=== PATIENT | male | born 1955 | race Caucasian/White ===

== ENCOUNTER → 2018-01-04 | Outpatient (CLI) | payer MEDICARE, OTHER ==
--- NOTE | 2018-01-04 17:31 | XR ---
EXAMINATION TYPE: XR chest 2V DATE OF EXAM: 01/04/2018 COMPARISON: Prior chest x-ray 02/06/2016 and a 01/06/2017 HISTORY: COPD exacerbation TECHNIQUE: Frontal and lateral views of the chest are obtained. FINDINGS: There is no focal air space opacity, pleural effusion, or pneumothorax seen. Increased de nsity seen on previous exams at the right costophrenic angle has resolved. The cardiac silhouette siz e is within normal limits. The osseous structures are intact. IMPRESSION: No acute cardiopulmonary process.
== END | disposition home or self-care (01) ==
LOC: RADXRMAIN 15:03
PROVIDERS: ATTEND Internal Medicine
DX: J44.1 Chronic obstructive pulmonary disease with (acute) exacerbation (principal)
CPT/HCPCS: 71046

== ENCOUNTER → 2018-07-02 | Outpatient (CLI) | payer MEDICARE, OTHER ==
[2018-07-02 09:28] LABS: Blood Urea Nitrogen 13 mg/dL (9-20)
--- NOTE | 2018-07-02 11:10 | CT ---
EXAMINATION TYPE: CT chest w con DATE OF EXAM: 07/02/2018 COMPARISON: None HISTORY: Coughing up blood CT DLP: 292.5 mGycm, Automated exposure control for dose reduction was used. CONTRAST: Performed injected with 100 mL of Isovue 300. TECHNIQUE: Axial images were obtained at 5 mm thick sections. Reconstructed images are reviewed on [employer] computer in the coronal plane. FINDINGS: Portion of the thyroid visualized is normal. No suspicious lung nodules or focal infiltrates are present. Tracheobronchial tree is visualized appe ars normal. Small pneumatoceles in the hands ago esophageal recess. No enlarged mediastinal or hilar adenopathy is evident. The ascending aorta diameter at the level o f the main pulmonary artery is 3.7 cm. The main pulmonary artery diameter at the bifurcation is 2.[address] sections are obtained through the upper abdomen. Abdomen is essentially unremarkable. IMPRESSIONS: 1. No acute CT abnormality
== END | disposition home or self-care (01) ==
LOC: RADCTMAIN 08:32
PROVIDERS: ATTEND Nurse Practitioner Adult Health
DX: R04.2 Hemoptysis (principal)
CPT/HCPCS: 82565; 84520; 71260; 36415; Q9967

== ENCOUNTER → 2022-08-28 | Outpatient (CLI) | payer MEDICARE, OTHER ==
--- NOTE | 2022-08-28 10:23 | CT ---
EXAMINATION TYPE: CT shoulder LT wo con DATE OF EXAM: 08/28/2022 COMPARISON: None HISTORY: Neck trauma, slip and fall CT DLP: 447.[address] of the left shoulder with reconstruction imaging. TECHNIQUE: Unenhanced CT of the left shoulder was performed with bone and soft tissue window settings submitted in the axial coronal and sagittal planes. At a separate workstation 3-[id number] TR imaging was ob tained. FINDINGS: I do not see evidence for fracture or dislocation. No evidence for subacromial impingement as there is a flat acromium. AC joint arthropathy with moderate spurring and a vacuum changes seen. Mild spur formation involving the greater humeral tuberosity. Mild degenerative narrowing glenohume ral joint space. No obvious rotator cuff abnormality seen on CT. MRI is much more sensitive and spec ific to rotator cuff pathology. No soft tissue masses appreciated. Visualized portions of the right lung demonstrate right apical scarring. IMPRESSION: 1. No evidence for acute fracture dislocation of the left shoulder. Degenerative changes as outlined above.
--- NOTE | 2022-08-28 10:31 | CT ---
EXAMINATION TYPE: CT cervical spine wo con DATE OF EXAM: 08/28/2022 COMPARISON: None HISTORY: Slip and fall, neck trauma CT DLP: 584.[address] of the cervical spine was performed with bone and soft tissue window settings submitted . Coronal and sagittal reconstruction is obtained. There is normal alignment and prevertebral soft tissues. I do not see evidence for fracture or subluxation. C2-3: Within normal limits C3-4: Mild degenerative disc space narrowing. Mild posterior disc bulge. Severe degenerative change o f the left-sided cervical apophyseal joints. Left greater than right neural foraminal encroachment. C4-5: Moderate to severe degenerative disc space narrowing with a mild posterior disc bulge. No evide nce of herniation or protrusion. No central stenosis. Mild right greater than left neural foraminal e ncroachment. C5-6: Severe degenerative disc space narrowing of the mild vacuum disc noted. Posterior disc bulge wi th mild spondylosis. No evidence for central stenosis. Moderate bilateral neural foraminal encroachme nt. C6-7:Severe degenerative disc space narrowing of the mild vacuum disc noted. Posterior disc bulge wit h mild spondylosis. No evidence for central stenosis. Moderate bilateral neural foraminal encroachmen t. C7-T1: Within normal limits IMPRESSION: 1. No evidence for fracture or subluxation of the cervical spine. 2. Multilevel degenerative disc disease as outlined above.
== END | disposition home or self-care (01) ==
LOC: RADCTMAIN 08:20
PROVIDERS: ATTEND Family Medicine
DX: S19.9XXA Unspecified injury of neck, initial encounter (principal); S40.912A Unspecified superficial injury of left shoulder, initial encounter; M19.012 Primary osteoarthritis, left shoulder; M50.31 Other cervical disc degeneration, high cervical region
CPT/HCPCS: 72125

== ENCOUNTER 2022-12-28 19:29 | Inpatient (IN) | payer MEDICARE, OTHER ==
--- NOTE | 2022-12-28 20:08 | ED ---
General Adult HPI - General Chief complaint: Shortness of Breath Stated complaint: Low 02 Time Seen by Provider: 12/28/22 19:58 Source: patient, family Mode of arrival: wheelchair Limitations: no limitations - History of Present Illness Initial comments: Patient presents to the ED with his nephew for evaluation. Patient states that he has had a fever, productive cough (productive of white sputum), nasal congestion and myalgias since this morning. Patient denies known sick contact. Patient denies taking any antipyretic medication today. Patient states that he is a smoker. Patient denies trauma or injury, neck pain or stiffness, sore throat, chest pain, hemoptysis, palpitations, dizziness, abdominal pain, nausea/vomiting/diarrhea, dysuria or urinary symptoms, decreased urine output, leg or calf swelling or pain, or any other symptoms or complaints. Patient states that he has received his Covid and influenza immunizations. - Related Data Home Medications Medication Instructions Recorded Confirmed Fluticasone Propion/Salmeterol 1 puff INHALATION RT-BID 10/07/14 12/28/22 [Advair 250-50 Diskus] Atorvastatin [Lipitor] 40 mg PO HS 01/16/22 12/28/22 Ibuprofen [Motrin] 800 mg PO BID PRN 01/16/22 12/28/22 Albuterol Nebulized [Ventolin 2.5 mg INHALATION RT-QID PRN 12/28/22 12/28/22 Nebulized] Albuterol Sulfate [Albuterol 2 puff PO RT-QID PRN 12/28/22 12/28/22 Sulfate Hfa] Cholecalciferol [Vitamin D3 (25 50 mcg PO DAILY 12/28/22 12/28/22 Mcg = 1000 Iu)] Fluticasone Nasal [place] [Flonase 1 spray EA NOSTRIL DAILY 12/28/22 12/28/22 Nasal Gaines] Fluticasone/Umeclidin/Vilanter 1 puff INHALATION RT-DAILY 12/28/22 12/28/22 [Trelegy Ellipta 100-62.5-25] Allergies Allergy/AdvReac Type Severity Reaction Status Date / Time morphine AdvReac Unknown Verified 12/28/22 21:39 Review of Systems ROS Statement: Those systems with pertinent positive or pertinent negative responses have been documented in the HPI. ROS Other: All systems not noted in ROS Statement are negative. Past Medical History Past Medical History: Asthma, Cancer, COPD, Rheumatoid Arthritis (RA) Additional Past Medical History / Comment(s): Leukemia, SPLEENOMEGLY now normal History of Any Multi-Drug Resistant Organisms: C-DIFF Date of last positivie culture/infection: 2013 MDRO Source:: stool Past Surgical History: Orthopedic Surgery Additional Past Surgical History / Comment(s): TESTICULAR SURGERY, LT KNEE TORN LIGAMENT REPAIR, LT CHEEK BONE FX-SX REPAIRED Past Anesthesia/Blood Transfusion Reactions: No Reported Reaction Past Psychological History: No Psychological Hx Reported Smoking Status: Current every day smoker Past Alcohol Use History: Occasional Past Drug Use History: None Reported - Past Family History Father Additional Family Medical History / Comment(s): AT AGE 51- SUICIDE Mother Additional Family Medical History / Comment(s): MOM AGE 67- BRAIN HEMORRAGE. Mother history of Crohn's disease General Exam Limitations: no limitations General appearance: alert Head exam: Present: normocephalic Eye exam: Present: normal appearance ENT exam: Present: normal oropharynx, mucous membranes moist Neck exam: Present: other (Trachea is in midline). Absent: tenderness, meningismus Respiratory exam: Present: other (Scattered end-expiratory wheezes bilaterally). Absent: rales, rhonchi, stridor Cardiovascular Exam: Present: normal rhythm, tachycardia, normal heart sounds, other (Normal radial pulses bilaterally) GI/Abdominal exam: Present: soft. Absent: distended, tenderness, guarding Extremities exam: Present: other (Negative Homans sign bilaterally). Absent: tenderness, pedal edema, calf tenderness Neurological exam: Present: alert, oriented X3 Skin exam: Present: warm, dry, intact, normal color Course Vital Signs 12/28/22 12/28/22 12/28/22 19:47 20:00 21:00 Temperature 100.4 F H Pulse Rate 113 H 108 H 101 H Respiratory 20 24 24 Rate Blood Pressure 107/69 121/85 112/91 O2 Sat by Pulse 87 L 96 96 Oximetry 12/28/22 12/28/22 12/28/22 21:55 22:03 22:11 Temperature 98.9 F Pulse Rate 88 93 Respiratory Rate Blood Pressure O2 Sat by Pulse Oximetry - Reevaluation(s) Reevaluation #1: 12/28/22 22:41 Patient states that his dyspnea has improved with the DuoNeb treatment that he was given in the ED. Patient's oxygen saturation has improved with supplemental oxygen in the ED. Patient denies development of any new symptoms while in the ED. Patient remains alert. Patient and daughter are aware of the patient's test results, and they both agree with hospital admission at this time. 12/28/22 22:51 Case, H&P, test results and ED management thus far were discussed with Dr. Prashant Arriaza. He accepts hospital admission. He has no further recommendations at this time. EKG Findings - EKG Comments: EKG Findings:: ED physician interpretation (interpreted by me): Normal sinus rhythm, ventricular rate of 97 bpm, no ectopy, normal LA and QRS intervals, normal QT interval, normal axis, no ST or T-wave abnormality Medical Decision Making - Medical Decision Making Was pt. sent in by a medical professional or institution (, PA, PSYCHOLOGICAL ASSISTANT, urgent care, hospital, or care home...) When possible be specific @ -[No] Did you speak to anyone other than the patient for history (EMS, parent, family, police, friend...)? What history was obtained from this source @ -[No] Did you review nursing and triage notes (agree or disagree)? Why? @ -[I reviewed and agree with nursing and triage notes] Were old charts reviewed (outside hosp., previous admission, EMS record, old EKG, old radiological studies, urgent care reports/EKG's, care home records)? Report findings @ -[No old charts were reviewed] Differential Diagnosis (chest pain, altered mental status, abdominal pain women, abdominal pain men, vaginal bleeding, weakness, fever, dyspnea, syncope, headache, dizziness, GI bleed, back pain, seizure, CVA, palpatations, mental health, musculoskeletal)? @ -[Differential Dyspnea: Coronary syndrome, arrhythmia, tamponade, asthma, COPD, bronchitis, Covid, influenza, viral illness, URI, pneumonia, pneumothorax, pulmonary effusion, UTI, anemia, neuromuscular, this is not meant to be an all-inclusive list. ] EKG interpreted by me (3pts min.). @ -[As above] X-rays interpreted by me (1pt min.). @ -[Chest x-ray was reviewed myself and demonstrates bilateral infiltrates. I agree with the radiologist's interpretation as above.] CT interpreted by me (1pt min.). @ -[None done] U/S interpreted by me (1pt. min.). @ -[None done] What testing was considered but not performed or refused? (CT, X-rays, U/S, lab s)? Why? @ -[None] What meds were considered but not given or refused? Why? @ -[None] Did you discuss the management of the patient with other professionals (professionals i.e. , PA, PSYCHOLOGICAL ASSISTANT, lab, RT, psych nurse, social services technician, finisher card tender, teacher, targeting acquisition officer, complex case manager)? Give summary @ -[No] Was smoking cessation discussed for >3mins.? @ -[No] Was critical care preformed (if so, how long)? @ -[No] Were there social determinants of health that impacted care today? How? (Homelessness, low income, unemployed, alcoholism, drug addiction, transportation, low edu. Level, literacy, decrease access to med. care, long-term, rehab)? @ -[No] Was there de-escalation of care discussed even if they declined (Discuss DNR or withdrawal of care, Hospice)? DNR status @ -[No] What co-morbidities impacted this encounter? (DM, HTN, Smoking, COPD, CAD, Cancer, CVA, ARF, Chemo, Hep., AIDS, mental health diagnosis, sleep apnea, morbid obesity)? @ -[None] Was patient admitted / discharged? Hospital course, mention meds given and route, prescriptions, significant lab abnormalities, going to OR and other per tinent info. @ -[Patient's viral studies are negative. Patient's troponin is within normal limits. Patient has a low-grade fever and leukocytosis. The rest of the patient's labs are fairly unremarkable. Patient's chest x-ray shows bilateral infiltrates. I suspect that the patient's findings are due to community acquired pneumonia. Patient also has wheezing/bronchospasm on exam. Patient has been treated in the ED with DuoNeb treatment, IV steroids and IV antibiotics. Will admit the patient to the hospital for continued supplemental oxygen therapy given his hypoxia, as well as continued IV antibiotic therapy. Dr. Prashant Arriaza has accepted hospital admission. Undiagnosed new problem with uncertain prognosis? @ -[No] Drug Therapy requiring intensive monitoring for toxicity (Heparin, Nitro, Insulin, Cardizem)? @ -[No] Were any procedures done? @ -[No] Diagnosis/symptom? @ -[Community-acquired pneumonia with wheezing and hypoxia] Acute, or Chronic, or Acute on Chronic? @ -[Acute] Uncomplicated (without systemic symptoms) or Complicated (systemic symptoms)? @ -[default] Side effects of treatment? @ -[No] Exacerbation, Progression, or Severe Exacerbation? @ -[No] Poses a threat to life or bodily function? How? (Chest pain, USA, MS, pneumonia, PE, COPD, DKA, ARF, appy, cholecystitis, CVA, Diverticulitis, Homicidal, Suicidal, threat to staff... and all critical care pts) @ -[Possible] - Lab Data Result diagrams: 12/28/22 20:35 12/28/22 20:35 Lab Results 12/28/22 12/28/22 12/28/22 Range/Units 20:35 20:35 20:35 WBC 20.8 H (3.8-10.6) k/uL RBC 4.22 L (4.30-5.90) m/uL Hgb 12.3 L (13.0-17.5) gm/dL Hct 37.1 L (39.0-53.0) % MCV 88.1 (80.0-100.0) fL MCH 29.1 (25.0-35.0) pg MCHC 33.1 (31.0-37.0) g/dL RDW 14.7 (11.5-15.5) % Plt Count 156 (150-450) k/uL MPV 7.9 Neutrophils % 89 % Lymphocytes % 7 % Monocytes % 3 % Eosinophils % 1 % Basophils % 0 % Neutrophils # 18.5 H (1.3-7.7) k/uL Lymphocytes # 1.4 (1.0-4.8) k/uL Monocytes # 0.7 (0-1.0) k/uL Eosinophils # 0.2 (0-0.7) k/uL Basophils # 0.0 (0-0.2) k/uL PT 10.1 (9.0-12.0) sec INR 1.0 (<1.2) APTT 26.3 (22.0-30.0) sec Sodium 131 L (137-145) mmol/L Potassium 3.9 (3.5-5.1) mmol/L Chloride 98 (98-107) mmol/L Carbon Dioxide 26 (22-30) mmol/L Anion Gap 7 mmol/L BUN 11 (9-20) mg/dL Creatinine 0.66 (0.66-1.25) mg/dL Est GFR (CKD-EPI)AfAm >90 (>60 ml/min/1.73 sqM) Est GFR (CKD-EPI)NonAf >90 (>60 ml/min/1.73 sqM) Glucose 90 (74-99) mg/dL Plasma Lactic Acid Lucas (0.7-2.0) mmol/L Calcium 8.7 (8.4-10.2) mg/dL Total Bilirubin 1.0 (0.2-1.3) mg/dL AST 16 L (17-59) U/L ALT 13 (4-49) U/L Alkaline Phosphatase 109 (38-126) U/L Troponin I (0.000-0.034) ng/mL NT-Pro-B Natriuret Pep 506 pg/mL Total Protein 5.7 L (6.3-8.2) g/dL Albumin 3.4 L (3.5-5.0) g/dL Urine Color Urine Appearance (Clear) Urine pH (5.0-8.0) Ur Specific [place] (1.001-1.035) Urine Protein (Negative) Urine Glucose (UA) (Negative) Urine Ketones (Negative) Urine Blood (Negative) Urine Nitrite (Negative) Urine Bilirubin (Negative) Urine Urobilinogen (<2.0) mg/dL Ur Leukocyte Esterase (Negative) Influenza Type A (PCR) (Not Detectd) Influenza Type B (PCR) (Not Detectd) RSV (PCR) (Not Detectd) SARS-CoV-2 (PCR) (Not Detectd) 12/28/22 12/28/22 12/28/22 Range/Units 20:35 20:35 20:35 WBC (3.8-10.6) k/uL RBC (4.30-5.90) m/uL Hgb (13.0-17.5) gm/dL Hct (39.0-53.0) % MCV (80.0-100.0) fL MCH (25.0-35.0) pg MCHC (31.0-37.0) g/dL RDW (11.5-15.5) % Plt Count (150-450) k/uL MPV Neutrophils % % Lymphocytes % % Monocytes % % Eosinophils % % Basophils % % Neutrophils # (1.3-7.7) k/uL Lymphocytes # (1.0-4.8) k/uL Monocytes # (0-1.0) k/uL Eosinophils # (0-0.7) k/uL Basophils # (0-0.2) k/uL PT (9.0-12.0) sec INR (<1.2) APTT (22.0-30.0) sec Sodium (137-145) mmol/L Potassium (3.5-5.1) mmol/L Chloride (98-107) mmol/L Carbon Dioxide (22-30) mmol/L Anion Gap mmol/L BUN (9-20) mg/dL Creatinine (0.66-1.25) mg/dL Est GFR (CKD-EPI)AfAm (>60 ml/min/1.73 sqM) Est GFR (CKD-EPI)NonAf (>60 ml/min/1.73 sqM) Glucose (74-99) mg/dL Plasma Lactic Acid Lucas 1.3 (0.7-2.0) mmol/L Calcium (8.4-10.2) mg/dL Total Bilirubin (0.2-1.3) mg/dL AST (17-59) U/L ALT (4-49) U/L Alkaline Phosphatase (38-126) U/L Troponin I <0.012 (0.000-0.034) ng/mL NT-Pro-B Natriuret Pep pg/mL Total Protein (6.3-8.2) g/dL Albumin (3.5-5.0) g/dL Urine Color Urine Appearance (Clear) Urine pH (5.0-8.0) Ur Specific [place] (1.001-1.035) Urine Protein (Negative) Urine Glucose (UA) (Negative) Urine Ketones (Negative) Urine Blood (Negative) Urine Nitrite (Negative) Urine Bilirubin (Negative) Urine Urobilinogen (<2.0) mg/dL Ur Leukocyte Esterase (Negative) Influenza Type A (PCR) Not Detected (Not Detectd) Influenza Type B (PCR) Not Detected (Not Detectd) RSV (PCR) Not Detected (Not Detectd) SARS-CoV-2 (PCR) Not Detected (Not Detectd) 12/28/22 Range/Units 21:59 WBC (3.8-10.6) k/uL RBC (4.30-5.90) m/uL Hgb (13.0-17.5) gm/dL Hct (39.0-53.0) % MCV (80.0-100.0) fL MCH (25.0-35.0) pg MCHC (31.0-37.0) g/dL RDW (11.5-15.5) % Plt Count (150-450) k/uL MPV Neutrophils % % Lymphocytes % % Monocytes % % Eosinophils % % Basophils % % Neutrophils # (1.3-7.7) k/uL Lymphocytes # (1.0-4.8) k/uL Monocytes # (0-1.0) k/uL Eosinophils # (0-0.7) k/uL Basophils # (0-0.2) k/uL PT (9.0-12.0) sec INR (<1.2) APTT (22.0-30.0) sec Sodium (137-145) mmol/L Potassium (3.5-5.1) mmol/L Chloride (98-107) mmol/L Carbon Dioxide (22-30) mmol/L Anion Gap mmol/L BUN (9-20) mg/dL Creatinine (0.66-1.25) mg/dL Est GFR (CKD-EPI)AfAm (>60 ml/min/1.73 sqM) Est GFR (CKD-EPI)NonAf (>60 ml/min/1.73 sqM) Glucose (74-99) mg/dL Plasma Lactic Acid Lucas (0.7-2.0) mmol/L Calcium (8.4-10.2) mg/dL Total Bilirubin (0.2-1.3) mg/dL AST (17-59) U/L ALT (4-49) U/L Alkaline Phosphatase (38-126) U/L Troponin I (0.000-0.034) ng/mL NT-Pro-B Natriuret Pep pg/mL Total Protein (6.3-8.2) g/dL Albumin (3.5-5.0) g/dL Urine Color Yellow Urine Appearance Clear (Clear) Urine pH 6.5 (5.0-8.0) Ur Specific [place] 1.017 (1.001-1.035) Urine Protein Trace H (Negative) Urine Glucose (UA) Negative (Negative) Urine Ketones Negative (Negative) Urine Blood Negative (Negative) Urine Nitrite Negative (Negative) Urine Bilirubin Negative (Negative) Urine Urobilinogen 3.0 (<2.0) mg/dL Ur Leukocyte Esterase Negative (Negative) Influenza Type A (PCR) (Not Detectd) Influenza Type B (PCR) (Not Detectd) RSV (PCR) (Not Detectd) SARS-CoV-2 (PCR) (Not Detectd) - Radiology Data Chest x-ray: Low lung volumes with a generalized hazy appearance which could represent atelectasis versus pulmonary edema correlate with serum BNP. Disposition Clinical Impression: Hypoxia, Dyspnea, Febrile illness, Wheezing, Pneumonia Disposition: ADMITTED IP TO THIS [facility] Condition: Stable Is patient prescribed a controlled substance at d/c from ED?: No Referrals: Prashant rAriaza MD [Primary Care Provider] - 1-2 days Time of Disposition: 22:51
[2022-12-28] MEDS ORDERED: methylPREDNISolone SOD SUCCI 125 MG/2 ML VIAL IV STA (20:13)
[2022-12-28] MEDS ORDERED: IPRATROPIUM-ALBUTEROL 3 ML NEB INHALATION STA (20:13)
[2022-12-28] MEDS ORDERED: ACETAMINOPHEN TAB 500 MG TAB PO STA (20:15)
--- NOTE | 2022-12-28 21:07 | XR ---
EXAMINATION TYPE: XR chest 2V DATE OF EXAM: 12/28/2022 8:51 PM COMPARISON: Chest radiographs from 01/04/2018. TECHNIQUE: XR chest 2V Frontal and lateral views of the chest. CLINICAL INDICATION:Male, 67 years old with history of difficulty breathing; FINDINGS: Lungs/Pleura: There is no evidence of pleural effusion, focal consolidation, or pneumothorax. Pulmonary vascularity: Pulmonary vascular congestion. Heart/mediastinum: Cardiomediastinal silhouette is unremarkable. Musculoskeletal: No acute osseous pathology. IMPRESSION: Low lung volumes with a generalized hazy appearance which could represent atelectasis versus pulmonar y edema correlate with serum BNP.
[2022-12-28 21:26] LABS: ALT 13 U/L (4-49); AST 16 U/L (17-59); African American GFR (CKD) >90 (>60 ml/min/1.73 sqM); Albumin 3.4 g/dL (3.5-5.0); Alkaline Phosphatase 109 U/L (38-126); Anion Gap 7 mmol/L; Blood Urea Nitrogen 11 mg/dL (9-20); Calcium 8.7 mg/dL (8.4-10.2); Carbon Dioxide 26 mmol/L (22-30); Chloride 98 mmol/L (98-107); Glucose 90 mg/dL (74-99); Non-African American GFR(CKD) >90 (>60 ml/min/1.73 sqM); Potassium 3.9 mmol/L (3.5-5.1); Sodium 131 mmol/L (137-145); Total Protein 5.7 g/dL (6.3-8.2)
[2022-12-28 21:33] LABS: Partial Thromboplastin Time 26.3 sec (22.0-30.0); Prothrombin Time 10.1 sec (9.0-12.0)
[2022-12-28 21:35] LABS: NT-Pro-B-Type Natriuretic Pept 506 pg/mL
[2022-12-28 21:38] LABS: Basophils % (A) 0 %; Eosinophils # (A) 0.2 k/uL (0-0.7); Eosinophils % (A) 1 %; HCT 37.1 % (39.0-53.0); HGB 12.3 gm/dL (13.0-17.5); Lymphocytes # (A) 1.4 k/uL (1.0-4.8); Lymphocytes % (A) 7 %; MCH 29.1 pg (25.0-35.0); MCHC 33.1 g/dL (31.0-37.0); MCV 88.1 fL (80.0-100.0); Mean Platelet Volume 7.9; Monocytes # (A) 0.7 k/uL (0-1.0); Monocytes % (A) 3 %; Neutrophils # (A) 18.5 k/uL (1.3-7.7); Neutrophils % (A) 89 %; Platelet Count 156 k/uL (150-450); RBC 4.22 m/uL (4.30-5.90); RDW 14.7 % (11.5-15.5); WBC 20.8 k/uL (3.8-10.6)
[2022-12-28] MEDS ORDERED: AZITHROMYCIN 500 MG in SODIUM CHLORIDE 0.9% 250 ML IVPB STA (22:05)
[2022-12-28 22:40] LABS: Appearance,Urine Clear (Clear); Bilirubin,Urine Negative (Negative); Blood,Urine Negative (Negative); Color,Urine Yellow; Glucose,Urine (UA) Negative (Negative); Ketones,Urine Negative (Negative); Leukocyte Esterase,Urine Negative (Negative); Nitrite,Urine Negative (Negative); PH, Urine 6.5 (5.0-8.0); Protein,Urine Trace (Negative); Specific Gravity,Urine 1.017 (1.001-1.035)
[2022-12-28] MEDS ORDERED: NALOXONE 0.4 MG/ML 1 ML VIAL IV PRN (22:55)
[2022-12-29 05:31] LABS: Basophils % (A) 0 %; Eosinophils % (A) 0 %; HGB 12.6 gm/dL (13.0-17.5); Lymphocytes # (A) 0.4 k/uL (1.0-4.8); Lymphocytes % (A) 3 %; MCH 29.6 pg (25.0-35.0); MCHC 33.1 g/dL (31.0-37.0); MCV 89.5 fL (80.0-100.0); Mean Platelet Volume 7.7; Monocytes # (A) 0.2 k/uL (0-1.0); Monocytes % (A) 1 %; Neutrophils # (A) 13.4 k/uL (1.3-7.7); Neutrophils % (A) 95 %; Platelet Count 115 k/uL (150-450); RBC 4.25 m/uL (4.30-5.90); RDW 14.7 % (11.5-15.5)
[2022-12-29 05:44] LABS: ALT 16 U/L (4-49); AST 25 U/L (17-59); African American GFR (CKD) >90 (>60 ml/min/1.73 sqM); Albumin 3.3 g/dL (3.5-5.0); Alkaline Phosphatase 110 U/L (38-126); Anion Gap 11 mmol/L; Blood Urea Nitrogen 13 mg/dL (9-20); Calcium 8.6 mg/dL (8.4-10.2); Carbon Dioxide 20 mmol/L (22-30); Chloride 105 mmol/L (98-107); Glucose 197 mg/dL (74-99); Non-African American GFR(CKD) >90 (>60 ml/min/1.73 sqM); Potassium 4.2 mmol/L (3.5-5.1); Sodium 136 mmol/L (137-145); Total Bilirubin 0.7 mg/dL (0.2-1.3); Total Protein 5.8 g/dL (6.3-8.2)
[2022-12-29] MEDS ORDERED: ALBUTEROL HFA INHALER INHALATION PRN (08:34)
[2022-12-29] MEDS ORDERED: ALBUTEROL NEBULIZED 2.5 MG/3 ML INHALATION PRN (08:34)
[2022-12-29] MEDS ORDERED: IBUPROFEN 800 MG TAB PO PRN (08:34)
[2022-12-29] MEDS: CHOLECALCIFEROL 25 MCG (1000 IU) TABLET PO SCH (08:57)
[2022-12-29] MEDS: FLUTICASONE 50MCG/SPRAY NASAL 16GM EA NOSTRIL SCH (09:24)
[2022-12-29] MEDS: IPRATROPIUM-ALBUTEROL 3 ML NEB INHALATION SCH ×3 (11:52→22:03)
[2022-12-29] MEDS ORDERED: RX INFO: IV CONTRAST WAS GIVEN 1 EACH MISC MISCELLANE PRN (19:00)
[2022-12-29] MEDS: methylPREDNISolone SOD SUCCI 40 MG/ML 1 ML VIAL IV SCH (21:29)
[2022-12-29] MEDS: ATORVASTATIN 40 MG TAB PO SCH (21:30)
[2022-12-29] MEDS: AZITHROMYCIN 500 MG in SODIUM CHLORIDE 0.9% 250 ML IVPB SCH (21:30)
--- NOTE | 2022-12-29 21:41 | CT ---
EXAMINATION TYPE: CT chest w con CT DLP: 316.3 mGycm, Automated exposure control for dose reduction was used. DATE OF EXAM: 12/29/2022 9:23 PM COMPARISON: 12/28/2022 CLINICAL INDICATION:Male, 67 years old with history of copd/cp; PHH, COPD/ chest pain TECHNIQUE: Multiple axial images were obtained through the chest. Sagittal and coronal reformats were created for review. Contrast used:100 mL of Isovue 300 with IV Contrast (None if empty) Oral contrast used: (None if empty) FINDINGS: LUNGS/ PLEURA: Bilateral airspace opacities most pronounced in the lower lungs, right greater than le ft. No evidence for pneumothorax or pleural effusion. AIRWAY: Few scattered large airways opacities most pronounced right lower lung. HEART: Size within normal limits. MEDIASTINUM: No gross evidence of adenopathy. VASCULATURE: Atherosclerotic calcifications are present throughout the aorta and its branches. MUSCULOSKELETAL: Mild disc degeneration changes are present throughout the thoracolumbar spine. SOFT TISSUES/LYMPH NODES: Unremarkable. LOWER NECK: No significant findings. UPPER ABDOMEN: No significant findings. IMPRESSION: Bilateral airspace opacities in lower lobes with some large airway opacification in the r ight lower lobe. Correlate for aspiration pneumonia..
[2022-12-29] MEDS: BUDESONIDE 0.5 MG/2 ML NEBU INHALATION SCH (22:03)
--- NOTE | 2022-12-30 00:26 | HP ---
HISTORY AND PHYSICAL HISTORY OF PRESENT ILLNESS: This is a 67-year-old white male. He wears oxygen at nighttime, severe COPD, comes in with cough and nasal congestion, myalgias, possibly had infection he got from a contaminated air conditioner. He denies any fever, or chills. He feels better than when he was admitted. He denies any hemoptysis, calf swelling, or pain. influenza shots. HOME MEDICINES: 1. Advair. 2. Motrin. 3. Ventolin. 4. DuoNeb updrafts. 5. Budesonide updrafts. ALLERGIES: Morphine. REVIEW OF SYSTEMS: A 14-point review of systems otherwise negative. PAST MEDICAL HISTORY: Asthma, cancer, COPD, rheumatoid arthritis, leukemia, splenomegaly, C diff, testicular surgeries, left knee torn ligament repair, left cheek and bone fractures. SOCIAL HISTORY: Current everyday smoker. FAMILY HISTORY: Father suicide. Mother, brain hemorrhage, colitis. PHYSICAL EXAMINATION: GENERAL: He is sitting comfortably in bed. VITAL SIGNS: T-max is 100.4, pulse 101 to 113, blood pressure 107 to 121 over 69 to 90, O2 of 87 on admission, up to 96. LUNGS: Scattered rhonchi and wheeze. CARDIOVASCULAR: S1, S2. GI: Soft. EXTREMITIES: No cyanosis, clubbing, or edema. SKIN: Warm, dry, and intact. ASSESSMENT: Pneumonia, COPD exacerbation, tracheobronchitis, acute hypoxemic respiratory failure with O2 saturation 94. EKG shows sinus rhythm. PLAN: IV steroids, IV antibiotics. Check CAT scan of the chest. Do pulmonary updrafts. Prognosis guarded. MMODL / IJN: [id number] /
[2022-12-30] MEDS: methylPREDNISolone SOD SUCCI 40 MG/ML 1 ML VIAL IV SCH ×3 (05:41→21:14)
[2022-12-30] MEDS: PANTOPRAZOLE 40 MG TABLET PO SCH ×2 (06:39→18:25)
[2022-12-30] MEDS: CHOLECALCIFEROL 25 MCG (1000 IU) TABLET PO SCH (09:00)
[2022-12-30] MEDS: FLUTICASONE 50MCG/SPRAY NASAL 16GM EA NOSTRIL SCH (09:00)
[2022-12-30] MEDS: IPRATROPIUM-ALBUTEROL 3 ML NEB INHALATION SCH ×4 (11:24→20:12)
[2022-12-30] MEDS: BUDESONIDE 0.5 MG/2 ML NEBU INHALATION SCH ×2 (11:24→20:12)
[2022-12-30] MEDS: AZITHROMYCIN 500 MG in SODIUM CHLORIDE 0.9% 250 ML IVPB SCH (21:14)
[2022-12-30] MEDS: ATORVASTATIN 40 MG TAB PO SCH (21:14)
[2022-12-31] MEDS ORDERED: ALBUTEROL NEBULIZED 2.5 MG/3 ML INHALATION PRN (00:42)
[2022-12-31] MEDS: methylPREDNISolone SOD SUCCI 125 MG/2 ML VIAL IV SCH ×5 (01:30→23:52)
--- NOTE | 2022-12-31 01:43 | PN ---
PROGRESS NOTE SUBJECTIVE: Acute hypoxemic respiratory distress, pneumonia bilaterally. OBJECTIVE: CARDIOVASCULAR: S1, S2. LUNGS: Scattered rhonchi and wheeze. GI: Soft. HEMATOLOGY: Negative for Homans. PSYCHIATRIC: Fair mood and affect. ASSESSMENT: Acute hypoxemic respiratory distress, bilateral pneumonia, COPD. Continue with breathing treatments. Home oxygen updrafts. CAT scan of his chest shows no lung cancer. Prognosis guarded. MMODL / IJN: [id number] /
--- NOTE | 2022-12-31 04:37 | P.CNPUL ---
History of Present Illness Consult date: 12/31/22 Requesting physician: Prsahant Arriaza Chief complaint: Shortness of breath, fevers, cough History of present illness: I am seeing this patient in new consultation today 12/31/2022 on the general medical floor for suspected community-acquired pneumonia. Patient is a 67-year-old white male with past medical history significant for COPD, non- Hodgkin's lymphoma, rheumatoid arthritis, and chronic nicotine dependence. Alaina ent's primary care provider is Dr. Prashant Arriaza. Patient has also seen Dr. Gonsales in the office in follow-up for a right lower lobe pneumonia and COPD. He utilizes combination of Advair and Ventolin HFA as needed. He is chronically steroid dependent on prednisone 10 mg daily. Patient presented to emergency room back on December, for symptoms of shortness of breath, fevers, myalgias, and a productive cough with white sputum that started approximately 2 days before arrival. Denies sick contacts or recent travel. Denies any chest pain, heart palpitations, lower extremity swelling, orthopnea. We were not consulted until yesterday evening. Patient is currently sitting up in bed, on room air, in no acute distress. Chest x-ray on arrival showed bilateral airspace opacities in the lower lobes. A follow-up chest CT with contrast showed bilateral airspace opacities in the lower lobes with some large airway opacification in the right lower lobe correlating for aspiration pneumonia. CBC on arrival showed significant leukocytosis with a WBC count of 20.8, hemoglobin 12.3, hematocrit 37.1, and platelets 156. Patient was started on a combination of azithromycin and Rocephin. Patient is currently afebrile and leukocytosis is trending down. BMP on arrival was unremarkable. No IV maintenance fluids infusing. Tolerating oral intake. Negative for influenza, RSV, COVID-19. He is quite bronchospastic. Wheezy and rhonchorous on auscultation. There is a persistent nonproductive cough. He is pursed lip breathing. He has been started on a combination of budesonide and formoterol inhalations, bronchodilators, and IV Solu-Medrol. Appears hemodynamically stable at this time. Review of Systems REVIEW OF SYSTEMS: CONSTITUTIONAL: Denies any recent significant weight loss or weight gain. EYES: Denies change in vision. EARS, NOSE, MOUTH, THROAT: Denies headaches, denies sore throat. CARDIOVASCULAR: Denies chest pain, palpitations or syncopal episodes. RESPIRATORY: See HPI GASTROINTESTINAL: Denies change in appetite, abdominal pain, nausea and vomiting, or diarrhea GENITOURINARY: Denies hematuria, denies infections. MUSKULOSKELETAL: Denies pain, denies swelling. INTEGUMENTARY: Denies rash, denies eczema. NEUROLOGICAL: Denies recent memory loss, no recent seizure activity. PSYCHIATRIC: Denies anxiety, denies depression. HEMATOLOGIC/LYMPHATIC: Denies anemia, denies enlarged lymph node Past Medical History Past Medical History: Asthma, Cancer, COPD, Rheumatoid Arthritis (RA) Additional Past Medical History / Comment(s): Leukemia, SPLEENOMEGLY now normal, heart cath with stent History of Any Multi-Drug Resistant Organisms: C-DIFF Date of last positivie culture/infection: 2013 MDRO Source:: stool Past Surgical History: Orthopedic Surgery Additional Past Surgical History / Comment(s): TESTICULAR SURGERY, LT KNEE TORN LIGAMENT REPAIR, LT CHEEK BONE FX-SX REPAIRED Past Anesthesia/Blood Transfusion Reactions: No Reported Reaction Past Psychological History: No Psychological Hx Reported Smoking Status: Current every day smoker Past Alcohol Use History: Occasional Additional Past Alcohol Use History / Comment(s): SMOKES 1/2 TO 1PPD SINCE AGE 181972 Past Drug Use History: None Reported - Past Family History Father Additional Family Medical History / Comment(s): AT AGE 51- SUICIDE Mother Additional Family Medical History / Comment(s): MOM AGE 67- BRAIN HEMORRAGE. Mother history of Crohn's disease Medications and Allergies Home Medications Medication Instructions Recorded Confirmed Type Fluticasone Propion/Salmeterol 1 puff INHALATION RT-BID 10/07/14 12/28/22 History [Advair 250-50 Diskus] Atorvastatin [Lipitor] 40 mg PO HS 01/16/22 12/28/22 History Ibuprofen [Motrin] 800 mg PO BID PRN 01/16/22 12/28/22 History Albuterol Nebulized [Ventolin 2.5 mg INHALATION RT-QID PRN 12/28/22 12/28/22 History Nebulized] Albuterol Sulfate [Albuterol 2 puff PO RT-QID PRN 12/28/22 12/28/22 History Sulfate Hfa] Cholecalciferol [Vitamin D3 (25 50 mcg PO DAILY 12/28/22 12/28/22 History Mcg = 1000 Iu)] Fluticasone Nasal [place] [Flonase 1 spray EA NOSTRIL DAILY 12/28/22 12/28/22 History Nasal [place]] Fluticasone/Umeclidin/Vilanter 1 puff INHALATION RT-DAILY 12/28/22 12/28/22 History [Trelegy Ellipta 100-62.5-25] Allergies Allergy/AdvReac Type Severity Reaction Status Date / Time morphine AdvReac Unknown Verified 12/28/22 21:39 Physical Exam Vitals: Vital Signs Temp Pulse Pulse Resp BP Pulse Ox 12/31/22 03:06 97.6 F 83 18 125/81 94 L 12/30/22 20:27 92 12/30/22 20:12 95 12/30/22 19:09 97.5 F L 83 18 121/68 96 12/30/22 16:00 97.9 F 92 18 128/77 93 L 12/30/22 15:43 80 12/30/22 15:27 80 12/30/22 11:42 76 12/30/22 11:24 72 93 L 12/30/22 08:09 97.8 F 87 18 127/86 92 L Intake and Output 12/30/22 12/30/22 12/31/22 14:59 22:59 06:59 Intake Total 50 Balance 50 Intake: Intake, IV Titration 50 Amount cefTRIAXone 1 gm In 50 Sodium Chloride 0.9% 50 ml @ 100 mls/hr IVPB Q24HR [facility] Rx#:[id number] Other: Voiding Method Toilet Toilet # Voids 3 # Bowel Movements 1 GENERAL EXAM: Alert, 67-year-old white male appearing stated age, comfortable in no apparent distress. HEAD: Normocephalic and atraumatic EYES: Normal reaction of pupils, equal size. NOSE: Clear with pink turbinates. THROAT: No erythema or exudates. NECK: No masses, no JVD. CHEST: No chest wall deformity. LUNGS: Equal air entry with diffuse rhonchi and expiratory wheezing. On room air. He's pursed lip breathing and in some mild respiratory distress. He is very bronchospastic, and has a persistent nonproductive cough CVS: S1 and S2 normal with no audible murmur, regular rhythm. No extra heart sounds ABDOMEN: No hepatosplenomegaly, active bowel sounds, no guarding or rigidity. SPINE: No scoliosis or deformity SKIN: No rashes CENTRAL NERVOUS SYSTEM: No focal deficits, tone is normal in all 4 extremities. EXTREMITIES: There is no peripheral edema, clubbing, or cyanosis. Peripheral pulses are intact. Results - Laboratory Findings CBC and BMP: 12/29/22 04:34 12/29/22 04:34 PT/INR, D-dimer PT 10.1 sec (9.0-12.0) 12/28/22 20:35 INR 1.0 (<1.2) 12/28/22 20:35 Abnormal lab findings: Abnormal Labs 12/28/22 12/28/22 12/28/22 20:35 20:35 21:59 WBC 20.8 H RBC 4.22 L Hgb 12.3 L Hct 37.1 L Plt Count Neutrophils # 18.5 H Lymphocytes # Sodium 131 L Carbon Dioxide Creatinine Glucose AST 16 L Total Protein 5.7 L Albumin 3.4 L Urine Protein Trace H 12/29/22 12/29/22 04:34 04:34 WBC 14.0 H RBC 4.25 L Hgb 12.6 L Hct 38.0 L Plt Count 115 L Neutrophils # 13.4 H Lymphocytes # 0.4 L Sodium 136 L Carbon Dioxide 20 L Creatinine 0.55 L Glucose 197 H AST Total Protein 5.8 L Albumin 3.3 L Urine Protein - Diagnostic Findings Chest x-ray: image reviewed CT scan - chest: image reviewed Assessment and Plan Assessment: Suspected bilateral community acquired pneumonia, Chest CT demonstrates bilateral airspace opacities in the lower lobes with some large airway opacification within the right lower lobe. Negative for influenza, RSV, COVID- 19. Leukocytosis, secondary to above, improving Acute COPD exacerbation secondary to above, patient has history of moderate to severe steroid-dependent COPD. He continues to smoke. History of non-Hodgkin's lymphoma Rheumatoid arthritis History of right lower lobe pneumonia Chronic nicotine dependence Plan: Patient's medications, labs and imaging reviewed On room air Continue empiric antibiotics Check procalcitonin level Continue combination of budesonide, formoterol, bronchodilators, and IV Solu- Medrol Start Robitussin-DM as antitussive Smoking cessation counseling performed Nicotine replacement offered Not ready for discharge, in my opinion, we will continue to follow and make recommendations. I have personally seen and examined the patient, performed the documentation and the assessment and plan as written. Number of minutes spent on the visit:20 Time with Patient: Greater than 30
[2022-12-31] MEDS: guaiFENesin-DM 100-10MG/5ML 10 ML CUP PO SCH ×4 (06:11→23:52)
[2022-12-31] MEDS: PANTOPRAZOLE 40 MG TABLET PO SCH ×2 (06:11→17:25)
[2022-12-31] MEDS: IPRATROPIUM-ALBUTEROL 3 ML NEB INHALATION SCH ×4 (08:12→21:56)
[2022-12-31] MEDS: BUDESONIDE 0.5 MG/2 ML NEBU INHALATION SCH ×2 (08:12→21:56)
[2022-12-31] MEDS: FORMOTEROL FUMARATE 20 MCG/2 ML NEBU INHALATION SCH ×2 (08:12→21:56)
[2022-12-31] MEDS: CHOLECALCIFEROL 25 MCG (1000 IU) TABLET PO SCH (10:15)
[2022-12-31] MEDS: NICOTINE 21MG/24HR PATCH TRANSDERM SCH (10:15)
[2022-12-31] MEDS: FLUTICASONE 50MCG/SPRAY NASAL 16GM EA NOSTRIL SCH (10:15)
--- NOTE | 2022-12-31 11:52 | CA ---
Transthoracic Echo Report Name: Lamont Cleveland Age: 67 Gender: M : 1955 Exam Date: 12/31/2022 07:43 Exam Location: [place] Echo Ht (in): 69 Wt (lb): 162 Ordering Physician: Prashant Arriaza MD Attending/Referring Phys: Solution Consultant Dena Navarro [facility] Procedure CPT: Indications: dyspnea Cardiac Hx: Technical Quality: Fair Contrast 1: Total Dose (mL): Contrast 2: Total Dose (mL): MEASUREMENTS (Male / Female) Normal Values 2D ECHO LV Diastolic Diameter PLAX 5.2 cm 4.2 - 5.9 / 3.9 - 5.3 cm LV Systolic Diameter PLAX 3.3 cm IVS Diastolic Thickness 0.9 cm 0.6 - 1.0 / 0.6 - 0.9 cm LVPW Diastolic Thickness 1.1 cm 0.6 - 1.0 / 0.6 - 0.9 cm LV Relative Wall Thickness 0.4 Ascending Aorta Diameter 3.3 cm M-MODE Aortic Root Diameter MM 3.5 cm LA Systolic Diameter MM 3.8 cm LA Ao Ratio MM 1.1 AV Cusp Separation MM 1.9 cm DOPPLER AV Peak Velocity 214.0 cm/s AV Peak Gradient 18.3 mmHg AV Mean Velocity 148.3 cm/s AV Mean Gradient 10.0 mmHg AV Velocity Time Integral 41.1 cm LVOT Peak Velocity 123.1 cm/s LVOT Peak Gradient 6.1 mmHg LVOT Velocity Time Integral 24.1 cm Mitral E Point Velocity 80.0 cm/s Mitral A Point Velocity 87.5 cm/s Mitral E to A Ratio 0.9 MV Deceleration Time 115.8 ms LV E' Lateral Velocity 12.3 cm/s Mitral E to LV E' Lateral Ratio 6.5 LV E' Septal Velocity 11.2 cm/s Mitral E to LV E' Septal Ratio 7.1 TR Peak Velocity 262.3 cm/s TR Peak Gradient 27.5 mmHg Right Atrial Pressure 15.0 mmHg Pulmonary Artery Systolic Pressu 42.5 mmHg Right Ventricular Systolic Press 42.5 mmHg FINDINGS Left Ventricle Normal Left ventricular size, wall thickness, systolic function with no obvious regional wall motion abnormalities. Left ventricular ejection fraction is estimated at 55-60%. Right Ventricle Mild right ventricular dilatation. Moderate pulmonary hypertension. Right Atrium Mild right atrial dilatation. Left Atrium Mild left atrial dilatation. Mitral Valve Structurally normal mitral valve. Trace mitral regurgitation. Aortic Valve Trileaflet aortic valve. Aortic valve sclerosis. No aortic regurgitation. Tricuspid Valve Structurally normal tricuspid valve. Trace tricuspid regurgitation. Pulmonic Valve Structurally normal pulmonic valve. No pulmonic regurgitation. Pericardium No pericardial effusion. Aorta Normal size aortic root and proximal ascending aorta. CONCLUSIONS Normal LV function Mild to moderate pulmonary hypertension Previewed by: Dr. Nigel Mckeon MD (Electronically Signed) Final Date: 31 December 2022 11:52
[2022-12-31] MEDS: AZITHROMYCIN 500 MG in SODIUM CHLORIDE 0.9% 250 ML IVPB SCH (21:46)
[2022-12-31] MEDS: ATORVASTATIN 40 MG TAB PO SCH (21:46)
--- NOTE | 2023-01-01 00:41 | PN ---
PROGRESS NOTE SUBJECTIVE: Remains on the Perforomist, Solu-Medrol, DuoNeb, Lipitor, Pulmicort, Rocephin. He is slowly improving. CAT scan was reviewed with him. Pulse is 74. OBJECTIVE: CARDIOVASCULAR: S1, S2. LUNGS: Scattered rhonchi and wheeze. HEMATOLOGY: Negative for Homans. PSYCH: Fair mood and affect. ASSESSMENT: COPD exacerbation, tracheobronchitis, possible pneumonia. Continue current treatment, wean steroids. Possible discharge home in the morning. He has improved about 75%. He has been admitted. He wants to go home tomorrow. MMODL / IJN: [id number] /
[2023-01-01] MEDS: guaiFENesin-DM 100-10MG/5ML 10 ML CUP PO SCH ×2 (05:52→11:26)
[2023-01-01] MEDS: methylPREDNISolone SOD SUCCI 125 MG/2 ML VIAL IV SCH (05:52)
[2023-01-01] MEDS: PANTOPRAZOLE 40 MG TABLET PO SCH (05:52)
[2023-01-01 07:13] VITALS: BP 143/85; TEMP 97
[2023-01-01] MEDS: FLUTICASONE 50MCG/SPRAY NASAL 16GM EA NOSTRIL SCH (08:09)
[2023-01-01] MEDS: CHOLECALCIFEROL 25 MCG (1000 IU) TABLET PO SCH (08:09)
[2023-01-01] MEDS: NICOTINE 21MG/24HR PATCH TRANSDERM SCH (08:09)
[2023-01-01] MEDS: IPRATROPIUM-ALBUTEROL 3 ML NEB INHALATION SCH ×2 (08:46→11:08)
[2023-01-01] MEDS: BUDESONIDE 0.5 MG/2 ML NEBU INHALATION SCH (08:46)
[2023-01-01] MEDS: FORMOTEROL FUMARATE 20 MCG/2 ML NEBU INHALATION SCH (08:46)
[2023-01-01 10:44] VITALS: RESP 18
[2023-01-01 11:11] VITALS: PULSE 76
--- NOTE | 2023-01-01 12:09 | P.PN ---
Subjective Progress Note Date: 01/01/23 I am seeing this patient in new consultation today 12/31/2022 on the general medical floor for suspected community-acquired pneumonia. Patient is a 67-year-old white male with past medical history significant for COPD, non- Hodgkin's lymphoma, rheumatoid arthritis, and chronic nicotine dependence. Patient's primary care provider is Dr. Prashant Arriaza. Patient has also seen Dr. Gonsales in the office in follow-up for a right lower lobe pneumonia and COPD. He utilizes combination of Advair and Ventolin HFA as needed. He is chronically steroid dependent on prednisone 10 mg daily. Patient presented to emergency room back on December, for symptoms of shortness of breath, fevers, myalgias, and a productive cough with white sputum that started approximately 2 days before arrival. Denies sick contacts or recent travel. Denies any chest pain, heart palpitations, lower extremity swelling, orthopnea. We were not consulted until yesterday evening. Patient is currently sitting up in bed, on room air, in no acute distress. Chest x-ray on arrival showed bilateral airspace opacities in the lower lobes. A follow-up chest CT with contrast showed bilateral airspace opacities in the lower lobes with some large airway opacification in the right lower lobe correlating for aspiration pneumonia. CBC on arrival showed significant leukocytosis with a WBC count of 20.8, hemoglobin 12.3, hematocrit 37.1, and platelets 156. Patient was started on a combination of azithromycin and Rocephin. Patient is currently afebrile and leukocytosis is trending down. BMP on arrival was unremarkable. No IV maintenance fluids infusing. Tolerating oral intake. Negative for influenza, RSV, COVID-19. He is quite bronchospastic. Wheezy and rhonchorous on auscultation. There is a persistent nonproductive cough. He is pursed lip breathing. He has been started on a combination of budesonide and formoterol inhalations, bronchodilators, and IV Solu-Medrol. Appears hemodynamically stable at this time. The patient is seen today 01/01/2023 in follow-up on the regular medical floor. He is up ambulating in his room. Awake and alert in no acute distress. Anxious to go home. Maintaining O2 saturations in the mid 90s on room air. Echocardiogram reveals preserved left ventricular systolic function. Mild to moderate pulmonary hypertension. Cultures reveal no growth. Pro-calcitonin 0.13. Legionella urine antigen negative. He is continued on track some. Completed azithromycin. Remains on Pulmicort and Perforomist inhalations, DuoNeb inhalations, IV Solu-Medrol. NicoDerm patch in place. Objective - Vital Signs Vital signs: Vital Signs Temp 97.0 F L 01/01/23 07:12 Pulse 76 01/01/23 11:19 Resp 18 01/01/23 08:00 BP 143/85 01/01/23 07:12 Pulse Ox 95 01/01/23 08:47 FiO2 21 01/01/23 08:47 Intake & Output 12/31/22 01/01/23 01/01/23 18:59 06:59 18:59 Other: Voiding Method Toilet Toilet Toilet # Voids 4 1 # Bowel Movements 1 - Exam GENERAL EXAM: Alert, very pleasant 67-year-old male, comfortable in no apparent distress. HEAD: Normocephalic and atraumatic EYES: Normal reaction of pupils, equal size. NOSE: Clear with pink turbinates. THROAT: No erythema or exudates. NECK: No masses, no JVD. CHEST: No chest wall deformity. LUNGS: Equal air entry with rhonchi and expiratory wheezing. On room air. CVS: S1 and S2 normal with no audible murmur, regular rhythm. No extra heart sounds ABDOMEN: No hepatosplenomegaly, active bowel sounds, no guarding or rigidity. SPINE: No scoliosis or deformity SKIN: No rashes CENTRAL NERVOUS SYSTEM: No focal deficits, tone is normal in all 4 extremities. EXTREMITIES: There is no peripheral edema, clubbing, or cyanosis. Peripheral pulses are intact. - Labs CBC & Chem 7: 12/29/22 04:34 12/29/22 04:34 Labs: Microbiology - Last 24 Hours (Table) 12/28/22 20:35 Blood Culture - Preliminary Blood 12/28/22 20:20 Blood Culture - Preliminary Blood Assessment and Plan Assessment: Suspected bilateral community acquired pneumonia, Chest CT demonstrates bilateral airspace opacities in the lower lobes with some large airway opacification within the right lower lobe. Negative for influenza, RSV, COVID- 19. Leukocytosis, secondary to above, improving Acute COPD exacerbation secondary to above, patient has history of moderate to severe steroid-dependent COPD. He continues to smoke. History of non-Hodgkin's lymphoma Rheumatoid arthritis History of right lower lobe pneumonia Chronic nicotine dependence Plan: The patient was seen and evaluated Stable and on room air Cleared for discharge from the pulmonary standpoint Computed prednisone taper. Complete a course of Augmentin Educated regarding the importance of complete smoking cessation Continue NicoDerm patches Continue his home pulmonary medications Follow-up in our office in 1 week I have personally seen and examined the patient, performed the documentation and the assessment and plan as written. Number of minutes spent on the visit: 10.
[2023-01-01] MEDS ORDERED: SYMBICORT 160-4.5 MCG INHALER INHALATION SCH (20:00)
[2023-01-01] MEDS ORDERED: AMOXIC-POT CLAV 875-125MG 1 EACH TAB PO SCH (21:00)
[2023-01-02] MEDS ORDERED: methylPREDNISolone 4 MG TAB PO SCH (09:00)
[2023-01-02] MEDS ORDERED: predniSONE 10 MG TAB PO SCH (09:00)
--- NOTE | 2023-01-05 17:05 | CDI ---
Documentation Clarification Form Date: 01/05/2023 04:47:41 PM From: Jeniffer Boogie RN, CCDS Email: [email or web address] Admit Date: 12/28/2022 10:55:00 PM Patient Name: Lamont Cleveland Visit Number: [id number] Discharge Date: 01/01/2023 01:50:00 PM ATTENTION: The Clinical Documentation Specialists (CDI) and [employer] Coding Staff appreciate your assistance in clarifying documentation. Please respond to the clarification below the line at the bottom and electronically sign. The CDI & [employer] Coding staff will review the response and follow-up if needed. Please note: Queries are made part of the Legal Health Record. If you have any questions, please contact the author of this message via ITS. Dr. Prashant Arriaza The patient had an elevated white count and abnormal vital signs on admission. Based on this information and the findings below, is there an additional diagnosis that is clinically appropriate for this patient? History/Risk Factors: Asthma, Cancer, COPD, Rheumatoid Arthritis. Came in with fever, productive cough (productive of white sputum), nasal congestion and myalgias. Admitted with pneumonia, COPD exacerbation, tracheobronchitis and acute hypoxemic respiratory failure. Clinical Indicators: H&P: "Pneumonia, COPD exacerbation, tracheobronchitis, acute hypoxemic respiratory failure with O2 saturation 94." Pulmonary consult: "Suspected bilateral community acquired pneumonia. Leukocytosis, secondary to above, improving." 12/28 WBC: 20.8-14.0 12/28 Vital signs: Temp 100.4, HR [id number], RR 20-24, BP 107/69, pox 87% 12/[address]: Bilateral airspace opacities in lower lobes with some large airway opacification in the right lower lobe. Correlate for aspiration pneumonia. Treatment: A/A QID prn; Solumedrol 125mg x1 on 12/28 then 40mg Q8H 12/29-12/30 then 60mg 12/30-12/31 Antibiotics: IV Azithromycin 500mg x1 on 12/28 then 500mg daily 12/29-12/31; IV Rocephin 1gm x1 on 12/28 then 1gm Q24H 12/29-12/31 Is there an additional diagnosis that is clinically appropriate for this patient? [ ] Sepsis, present on admission [ ] Other, please specify [ ] Unable to determine SIRS Criteria: 2 or more of the following may indicate SIRS Temperature < 96.8F (36C) or > 101.0F (38.3C) Heart Rate > 90 bpm Respiratory Rate > 20 breaths/min or PaCO2 < 32 mmHg White Blood Cell Count > 12,000 or < 4,000 cells/mm3 or > 10% bands MTDD
--- NOTE | 2023-01-08 02:39 | PN ---
PROGRESS NOTE Sepsis present on admission. MMODL / IJN: [id number] /
== END 2023-01-01 13:50 | disposition home or self-care (01) | DRG 871 ==
LOC: EC 19:29 → 4SSUR 22:55
PROVIDERS: ADMIT Family Medicine; ATTEND Family Medicine
DX: A41.9 Sepsis, unspecified organism (principal); J18.9 Pneumonia, unspecified organism; J96.01 Acute respiratory failure with hypoxia; J44.0 Chronic obstructive pulmonary disease with (acute) lower respiratory infection; J44.1 Chronic obstructive pulmonary disease with (acute) exacerbation; I10 Essential (primary) hypertension; F17.210 Nicotine dependence, cigarettes, uncomplicated; Z20.822 Contact with and (suspected) exposure to COVID-19; J06.9 Acute upper respiratory infection, unspecified; J40 Bronchitis, not specified as acute or chronic; I08.1 Rheumatic disorders of both mitral and tricuspid valves; Z85.72 Personal history of non-Hodgkin lymphomas; Z79.4 Long term (current) use of insulin; M06.9 Rheumatoid arthritis, unspecified; Z71.6 Tobacco abuse counseling; I27.20 Pulmonary hypertension, unspecified; Z79.899 Other long term (current) drug therapy; Z79.52 Long term (current) use of systemic steroids; Z85.6 Personal history of leukemia; Z87.19 Personal history of other diseases of the digestive system; Z87.81 Personal history of (healed) traumatic fracture; Z88.5 Allergy status to narcotic agent
CPT/HCPCS: 36415; 71046; 71260; 80053; 81003; 83605; 83880; 84145; 84484; 85025; 85610; 85730; 87040; 87449; 87636; 93005; 93306; 94640; 94760; 96365; 96367; 96375; 99285

== ENCOUNTER 2023-06-15 09:55 | Inpatient (IN) | payer MEDICARE, OTHER ==
--- NOTE | 2023-06-15 10:48 | ED ---
SOB HPI - General Chief Complaint: Shortness of Breath Stated Complaint: CINTIA Time Seen by Provider: 06/15/23 10:07 Source: patient, RN notes reviewed, old records reviewed Mode of arrival: wheelchair Limitations: no limitations - History of Present Illness Initial Comments: This is a 67-year-old male to the ER for evaluation today. Patient presents tod ay for evaluation versus severe shortness of breath increased cough increased congestion increased work of breathing increased dyspnea. Patient feels weak and near syncopal prior to arrival. Per EMS patient was significantly hypoxic MD Complaint: shortness of breath, cough, "asthma attack" -: days(s) Severity: severe Severity scale (1-10): 10 Quality: aching, throbbing Consistency: constant Improves With: nothing, rest Known History Of: COPD, asthma, congestive heart failure Context: recent URI, recent illness Associated Symptoms: chest pain, cough Treatments Prior to Arrival: none - Related Data Home Medications Medication Instructions Recorded Confirmed Albuterol Nebulized [Ventolin 2.5 mg INHALATION RT-QID PRN 06/15/23 06/15/23 Nebulized] Albuterol Sulfate [Albuterol 2 puff PO RT-Q6H PRN 06/15/23 06/15/23 Sulfate Hfa] Previous Rx's Medication Instructions Recorded Budesonide-Formot 160-4.5 Mcg 2 puff INHALATION RT-BID 30 Days 01/01/23 [Symbicort 160-4.5 Mcg Inhaler] #1 each Azithromycin [Zithromax] 500 mg PO DAILY 1 Days #1 tab 06/20/23 guaiFENesin [Mucinex] 600 mg PO Q12HR 5 Days #10 tab 06/20/23 predniSONE [Deltasone] 40 mg PO DAILY 3 Days #6 tab 06/20/23 Allergies Allergy/AdvReac Type Severity Reaction Status Date / Time morphine Allergy Unknown Verified 06/15/23 13:53 Review of Systems ROS Statement: Those systems with pertinent positive or pertinent negative responses have been documented in the HPI. ROS Other: All systems not noted in ROS Statement are negative. Past Medical History Past Medical History: Asthma, Cancer, COPD, Rheumatoid Arthritis (RA) Additional Past Medical History / Comment(s): Leukemia, SPLEENOMEGLY now normal, heart cath with stent History of Any Multi-Drug Resistant Organisms: C-DIFF Date of last positivie culture/infection: 2014 MDRO Source:: stool Past Surgical History: Orthopedic Surgery Additional Past Surgical History / Comment(s): TESTICULAR SURGERY, LT KNEE TORN LIGAMENT REPAIR, LT CHEEK BONE FX-SX REPAIRED Past Anesthesia/Blood Transfusion Reactions: No Reported Reaction Past Psychological History: No Psychological Hx Reported Smoking Status: Former smoker Past Alcohol Use History: Occasional Past Drug Use History: None Reported - Past Family History Father Additional Family Medical History / Comment(s): AT AGE 51- SUICIDE Mother Additional Family Medical History / Comment(s): MOM AGE 67- BRAIN HEMORRAGE. Mother history of Crohn's disease General Exam Limitations: no limitations General appearance: alert, in no apparent distress, anxious Head exam: Present: atraumatic, normocephalic, normal inspection Eye exam: Present: normal appearance, PERRL, EOMI. Absent: scleral icterus, conjunctival injection, periorbital swelling ENT exam: Present: normal exam, mucous membranes dry Neck exam: Present: normal inspection. Absent: tenderness, meningismus, lymphadenopathy Respiratory exam: Present: respiratory distress, wheezes, accessory muscle use, decreased breath sounds, prolonged expiratory. Absent: rales, rhonchi, stridor Cardiovascular Exam: Present: tachycardia, normal heart sounds. Absent: systolic murmur, diastolic murmur, rubs, gallop, clicks GI/Abdominal exam: Present: soft, normal bowel sounds. Absent: distended, tenderness, guarding, rebound, rigid Extremities exam: Present: normal inspection, full ROM, normal capillary refill. Absent: tenderness, pedal edema, joint swelling, calf tenderness Back exam: Present: normal inspection Neurological exam: Present: alert, oriented X3, CN II-XII intact Psychiatric exam: Present: normal affect, normal mood Skin exam: Present: warm, dry, intact, normal color. Absent: rash Course Vital Signs 06/15/23 06/15/23 06/15/23 10:00 11:51 12:13 Temperature 99.2 F Pulse Rate 118 H 79 82 Pulse Rate [ Pulse Oximetery ] Respiratory 20 20 Rate Blood Pressure 95/58 94/60 Blood Pressure [Left Arm] Blood Pressure [Right Arm Supine] O2 Sat by Pulse 83 L 92 L Oximetry 06/15/23 06/15/23 06/15/23 12:27 13:26 15:13 Temperature Pulse Rate 80 77 82 Pulse Rate [ Pulse Oximetery ] Respiratory 22 22 Rate Blood Pressure 91/58 91/66 Blood Pressure [Left Arm] Blood Pressure [Right Arm Supine] O2 Sat by Pulse 90 L 93 L Oximetry 06/15/23 06/15/23 06/15/23 16:34 16:44 16:57 Temperature 98.0 F Pulse Rate 75 78 Pulse Rate [ 73 Pulse Oximetery ] Respiratory 20 Rate Blood Pressure Blood Pressure [Left Arm] Blood Pressure 90/73 [Right Arm Supine] O2 Sat by Pulse 94 L Oximetry 06/15/23 06/15/23 06/15/23 19:32 19:44 23:00 Temperature Pulse Rate 80 85 70 Pulse Rate [ Pulse Oximetery ] Respiratory 20 Rate Blood Pressure 93/53 Blood Pressure [Left Arm] Blood Pressure [Right Arm Supine] O2 Sat by Pulse 96 Oximetry 06/16/23 06/16/23 06/16/23 00:15 01:00 02:00 Temperature Pulse Rate 65 64 59 L Pulse Rate [ Pulse Oximetery ] Respiratory 22 18 20 Rate Blood Pressure 91/66 118/72 93/62 Blood Pressure [Left Arm] Blood Pressure [Right Arm Supine] O2 Sat by Pulse 97 96 96 Oximetry 06/16/23 06/16/23 06/16/23 03:31 04:07 06:14 Temperature Pulse Rate 57 L 56 L 63 Pulse Rate [ Pulse Oximetery ] Respiratory 18 18 20 Rate Blood Pressure 102/66 118/71 119/73 Blood Pressure [Left Arm] Blood Pressure [Right Arm Supine] O2 Sat by Pulse 97 97 97 Oximetry 06/16/23 06/16/23 06/16/23 09:08 09:15 11:36 Temperature Pulse Rate 64 64 62 Pulse Rate [ Pulse Oximetery ] Respiratory Rate Blood Pressure Blood Pressure [Left Arm] Blood Pressure [Right Arm Supine] O2 Sat by Pulse 96 Oximetry 06/16/23 06/16/23 06/16/23 11:46 12:10 15:11 Temperature 97.0 F L Pulse Rate 62 66 Pulse Rate [ 99 Pulse Oximetery ] Respiratory 20 Rate Blood Pressure Blood Pressure 103/57 [Left Arm] Blood Pressure [Right Arm Supine] O2 Sat by Pulse 99 Oximetry 06/16/23 06/16/23 15:24 17:21 Temperature Pulse Rate 66 Pulse Rate [ 65 Pulse Oximetery ] Respiratory 20 Rate Blood Pressure Blood Pressure 90/59 [Left Arm] Blood Pressure [Right Arm Supine] O2 Sat by Pulse 96 Oximetry - Reevaluation(s) Reevaluation #1: 06/15/23 12:32 Medical records reviewed Reevaluation #2: 06/15/23 12:32 Patient symptoms unchanged Reevaluation #3: 06/15/23 12:32 Patient informed of results questions answered Reevaluation #4: 06/15/23 12:32 Was pt. sent in by a medical professional or institution ([facility]IRA Young, [employer], urgent care, hospital, or halfway...) When possible be specific @ -no Did you speak to anyone other than the patient for history (EMS, parent, family, police, friend...)? What history was obtained from this source @ -no Did you review nursing and triage notes (agree or disagree)? Why? @ -agree Are old charts reviewed (outside hosp., previous admission, EMS record, old EKG, old radiological studies, urgent care reports/EKG's, halfway records)? Report findings @ -yes Differential Diagnosis (chest pain, altered mental status, abdominal pain women, abdominal pain men, vaginal bleeding, weakness, fever, dyspnea, syncope, headache, dizziness, GI bleed, back pain, seizure, CVA, palpatations, mental health, musculoskeletal)? @ -prior EKG interpreted by me (3pts min.). @ -yes X-rays interpreted by me (1pt min.). @ -yes positive for pneumonia CT interpreted by me (1pt min.). @ -no U/S interpreted by me (1pt. min.). @ -no What testing was considered but not performed or refused? (CT, X-rays, U/S, labs)? Why? @ -none What meds were considered but not given or refused? Why? @ -none Did you discuss the management of the patient with other professionals (professionals i.e. SHIRA Young, [employer], lab, RT, psych nurse, geriatric social work professor, managed care manager, teacher, unclaimed property officer, bilingual case manager)? Give summary @ -no Was smoking cessation discussed for >3mins.? @ -no Were there social determinants of health that impacted care today? How? (Homelessness, low income, unemployed, alcoholism, drug addiction, transportation, low edu. Level, literacy, decrease access to med. care, longterm, rehab)? @ -none Was there de-escalation of care discussed even if they declined (Discuss DNR or withdrawal of care, Hospice)? DNR status @ -no What co-morbidities impacted this encounter? (DM, HTN, Smoking, COPD, CAD, Cancer, CVA, ARF, Chemo, Hep., AIDS, mental health diagnosis, sleep apnea, morbid obesity)? @ -none Was patient admitted / discharged? Hospital course, mention meds given and route, prescriptions, significant lab abnormalities, going to OR and other pertinent info. @ - 67 male to ER for evaluation of severe shortness of breath with hypoxia, hypoxic respiratory failure with pneumonia. COPD. Patient will be admitted for supportive care IV antibiotics Admitted Was critical care preformed (if so, how long)? @ -yes31 Diagnosis/symptom? @ -COPD, pneumonia, hypoxic respiratory failure Undiagnosed new problem with uncertain prognosis? @ -no Drug Therapy requiring intensive monitoring for toxicity (Heparin, Nitro, Insulin, Cardizem)? @ -no Were any procedures done? @ -no Acute, or Chronic, or Acute on Chronic? @ -Acute Uncomplicated (without systemic symptoms) or Complicated (systemic symptoms)? @ -Complicated Side effects of treatment? @ -no Exacerbation, Progression, or Severe Exacerbation? @ -exacerbation Poses a threat to life or bodily function? How? (Chest pain, [place], [place], pneumonia, PE, COPD, DKA, ARF, appy, cholecystitis, CVA, Diverticulitis, Homicidal, Suic idal, threat to staff... and all critical care pts) @ -yes with significant respiratory distress Reevaluation #5: 06/15/23 12:32 Differential Dyspnea: Coronary syndrome, arrhythmia, tamponade, asthma, COPD, pulmonary embolism, pneumonia, pneumothorax, pulmonary effusion, anaphylaxis, diabetic ketoacidosis, flailed chest, pulmonary contusion, diaphragmatic rupture, anemia, neuromuscular, this is not meant to be an all-inclusive list. - Consultations Consultation #1: Spoke with [facility] who agreed to admit this patient Medical Decision Making - Medical Decision Making 67 male to ER for evaluation of severe shortness of breath with hypoxia, hypoxic respiratory failure with pneumonia. COPD. Patient will be admitted for supportive care IV antibiotics - Lab Data Result diagrams: 06/20/23 07:24 06/20/23 07:24 Lab Results 06/15/23 06/15/23 06/15/23 Range/Units 11:04 11:04 11:04 WBC 22.5 H (3.8-10.6) k/uL RBC 4.29 L (4.30-5.90) m/uL Hgb 12.6 L (13.0-17.5) gm/dL Hct 36.1 L (39.0-53.0) % MCV 84.2 (80.0-100.0) fL MCH 29.4 (25.0-35.0) pg MCHC 34.9 (31.0-37.0) g/dL RDW 14.4 (11.5-15.5) % Plt Count 383 (150-450) k/uL MPV 8.1 Neutrophils % 90 % Lymphocytes % 5 % Monocytes % 4 % Eosinophils % 1 % Basophils % 0 % Neutrophils # 20.1 H (1.3-7.7) k/uL Lymphocytes # 1.1 (1.0-4.8) k/uL Monocytes # 0.8 (0-1.0) k/uL Eosinophils # 0.3 (0-0.7) k/uL Basophils # 0.1 (0-0.2) k/uL Poikilocytosis Slight PT 11.6 (10.0-12.5) sec INR 1.1 (<1.2) APTT 24.0 (22.0-30.0) sec Sodium (137-145) mmol/L Potassium (3.5-5.1) mmol/L Chloride (98-107) mmol/L Carbon Dioxide (22-30) mmol/L Anion Gap mmol/L BUN (9-20) mg/dL Creatinine (0.66-1.25) mg/dL Est GFR (CKD-EPI)AfAm (>60 ml/min/1.73 sqM) Est GFR (CKD-EPI)NonAf (>60 ml/min/1.73 sqM) Glucose (74-99) mg/dL Plasma Lactic Acid Lucas 1.3 (0.7-2.0) mmol/L Calcium (8.4-10.2) mg/dL Magnesium (1.6-2.3) mg/dL Total Bilirubin (0.2-1.3) mg/dL AST (17-59) U/L ALT (4-49) U/L Alkaline Phosphatase (38-126) U/L Troponin I (0.000-0.034) ng/mL NT-Pro-B Natriuret Pep pg/mL Total Protein (6.3-8.2) g/dL Albumin (3.5-5.0) g/dL Influenza Type A (PCR) (Not Detectd) Influenza Type B (PCR) (Not Detectd) RSV (PCR) (Not Detectd) SARS-CoV-2 (PCR) (Not Detectd) 06/15/23 06/15/23 06/15/23 Range/Units 11:04 11:55 11:55 WBC (3.8-10.6) k/uL RBC (4.30-5.90) m/uL Hgb (13.0-17.5) gm/dL Hct (39.0-53.0) % MCV (80.0-100.0) fL MCH (25.0-35.0) pg MCHC (31.0-37.0) g/dL RDW (11.5-15.5) % Plt Count (150-450) k/uL MPV Neutrophils % % Lymphocytes % % Monocytes % % Eosinophils % % Basophils % % Neutrophils # (1.3-7.7) k/uL Lymphocytes # (1.0-4.8) k/uL Monocytes # (0-1.0) k/uL Eosinophils # (0-0.7) k/uL Basophils # (0-0.2) k/uL Poikilocytosis PT (10.0-12.5) sec INR (<1.2) APTT (22.0-30.0) sec Sodium 130 L (137-145) mmol/L Potassium 3.9 (3.5-5.1) mmol/L Chloride 98 (98-107) mmol/L Carbon Dioxide 28 (22-30) mmol/L Anion Gap 4 mmol/L BUN 13 (9-20) mg/dL Creatinine 0.55 L (0.66-1.25) mg/dL Est GFR (CKD-EPI)AfAm >90 (>60 ml/min/1.73 sqM) Est GFR (CKD-EPI)NonAf >90 (>60 ml/min/1.73 sqM) Glucose 113 H (74-99) mg/dL Plasma Lactic Acid [place] (0.7-2.0) mmol/L Calcium 8.5 (8.4-10.2) mg/dL Magnesium 2.0 (1.6-2.3) mg/dL Total Bilirubin 0.7 (0.2-1.3) mg/dL AST 20 (17-59) U/L ALT 13 (4-49) U/L Alkaline Phosphatase 214 H (38-126) U/L Troponin I <0.012 (0.000-0.034) ng/mL NT-Pro-B Natriuret Pep 523 pg/mL Total Protein 5.1 L (6.3-8.2) g/dL Albumin 2.9 L (3.5-5.0) g/dL Influenza Type A (PCR) Not Detected (Not Detectd) Influenza Type B (PCR) Not Detected (Not Detectd) RSV (PCR) Not Detected (Not Detectd) SARS-CoV-2 (PCR) Not Detected (Not Detectd) - EKG Data -: EKG Interpreted by Me (EKG is sinus 85 KS 166 QRS 84 QTc 473) - Radiology Data Radiology results: report reviewed (Chest x-ray is positive for pneumonia), image reviewed Critical Care Time Critical Care Time: Yes Total Critical Care Time: 31 Disposition Clinical Impression: Wheezing, Pneumonia, Dyspnea, Hypoxia, Enterocolitis, Acute exacerbation of chr onic obstructive pulmonary disease, Community acquired pneumonia Disposition: ADMITTED IP TO THIS HOSP Condition: Good Is patient prescribed a controlled substance at d/c from ED?: No Time of Disposition: 12:30
--- NOTE | 2023-06-15 11:07 | XR ---
EXAMINATION TYPE: XR chest 1V portable DATE OF EXAM: 06/15/2023 Comparison: 12/28/2022 Clinical History: 67-year-old male sob Findings: Heart upper limits of normal in size. Mild hyperinflation. Prominent patchy opacities right mid and l ower lungs. No pleural effusion. Impression: Patchy airspace disease right mid and lower lung. Correlate for possible pneumonia.
[2023-06-15 11:21] LABS: Basophils # (A) 0.1 k/uL (0-0.2); Basophils % (A) 0 %; Eosinophils # (A) 0.3 k/uL (0-0.7); Eosinophils % (A) 1 %; HCT 36.1 % (39.0-53.0); HGB 12.6 gm/dL (13.0-17.5); Lymphocytes # (A) 1.1 k/uL (1.0-4.8); Lymphocytes % (A) 5 %; MCH 29.4 pg (25.0-35.0); MCHC 34.9 g/dL (31.0-37.0); MCV 84.2 fL (80.0-100.0); Mean Platelet Volume 8.1; Monocytes # (A) 0.8 k/uL (0-1.0); Monocytes % (A) 4 %; Neutrophils # (A) 20.1 k/uL (1.3-7.7); Neutrophils % (A) 90 %; Platelet Count 383 k/uL (150-450); Poikilocytosis Slight; RBC 4.29 m/uL (4.30-5.90); RDW 14.4 % (11.5-15.5); WBC 22.5 k/uL (3.8-10.6)
[2023-06-15] MEDS: SODIUM CHLORIDE 0.9% 1,000 ML IV STA (11:53)
[2023-06-15 11:59] LABS: INR 1.1 (<1.2); Prothrombin Time 11.6 sec (10.0-12.5)
[2023-06-15] MEDS: IPRATROPIUM-ALBUTEROL 3 ML NEB INHALATION STA ×2 (12:13→13:23)
[2023-06-15] MEDS ORDERED: PNEUMONIA PROTOCOL UTILIZED 1 EACH MISC PO PRN (12:29)
[2023-06-15 12:33] LABS: ALT 13 U/L (4-49); AST 20 U/L (17-59); African American GFR (CKD) >90 (>60 ml/min/1.73 sqM); Albumin 2.9 g/dL (3.5-5.0); Alkaline Phosphatase 214 U/L (38-126); Anion Gap 4 mmol/L; Blood Urea Nitrogen 13 mg/dL (9-20); Calcium 8.5 mg/dL (8.4-10.2); Carbon Dioxide 28 mmol/L (22-30); Chloride 98 mmol/L (98-107); Glucose 113 mg/dL (74-99); Non-African American GFR(CKD) >90 (>60 ml/min/1.73 sqM); Potassium 3.9 mmol/L (3.5-5.1); Sodium 130 mmol/L (137-145); Total Bilirubin 0.7 mg/dL (0.2-1.3); Total Protein 5.1 g/dL (6.3-8.2)
[2023-06-15 12:41] LABS: NT-Pro-B-Type Natriuretic Pept 523 pg/mL
[2023-06-15] MEDS: AZITHROMYCIN 500 MG in SODIUM CHLORIDE 0.9% 250 ML IVPB STA (15:12)
[2023-06-15] MEDS: ALBUTEROL NEBULIZED 2.5 MG/3 ML INHALATION SCH (16:34)
[2023-06-15] MEDS: ACETAMINOPHEN TAB 325 MG TAB PO PRN (23:54)
[2023-06-15] MEDS: IBUPROFEN 800 MG TAB PO PRN (23:54)
--- NOTE | 2023-06-16 08:40 | XR ---
EXAMINATION TYPE: XR chest 1V portable DATE OF EXAM: 06/16/2023 Comparison: 06/15/2023 Clinical History: 67-year-old male pneumonia Findings: Heart upper limits of normal size. Atherosclerotic arch calcifications. Extensive consolidation right mid and lower lung similar to slightly increased. Old right-sided rib fracture deformities. Left ziyad g and pleural space are relatively clear. Impression: Patchy airspace disease throughout the right mid and lower lung similar to slightly increased.
[2023-06-16] MEDS: AZITHROMYCIN 500 MG TAB PO SCH (09:33)
[2023-06-16] MEDS ORDERED: NALOXONE 0.4 MG/ML 1 ML VIAL IVP PRN (10:03)
[2023-06-16] MEDS: guaiFENesin 600 MG TABLET.ER PO SCH (10:20)
[2023-06-16] MEDS: methylPREDNISolone SOD SUCCI 40 MG/ML 1 ML VIAL IV SCH (10:20)
[2023-06-16 10:55] LABS: African American GFR (CKD) >90 (>60 ml/min/1.73 sqM); Anion Gap 6 mmol/L; Blood Urea Nitrogen 13 mg/dL (9-20); Calcium 8.3 mg/dL (8.4-10.2); Carbon Dioxide 29 mmol/L (22-30); Chloride 97 mmol/L (98-107); Glucose 154 mg/dL (74-99); Non-African American GFR(CKD) >90 (>60 ml/min/1.73 sqM); Potassium 3.7 mmol/L (3.5-5.1); Sodium 132 mmol/L (137-145)
[2023-06-16 11:01] LABS: Basophils # (A) 0.1 k/uL (0-0.2); Basophils % (A) 0 %; Eosinophils # (A) 0.2 k/uL (0-0.7); Eosinophils % (A) 1 %; HCT 32.5 % (39.0-53.0); HGB 10.9 gm/dL (13.0-17.5); Lymphocytes # (A) 1.1 k/uL (1.0-4.8); Lymphocytes % (A) 9 %; MCH 29.1 pg (25.0-35.0); MCHC 33.6 g/dL (31.0-37.0); MCV 86.5 fL (80.0-100.0); Mean Platelet Volume 7.3; Monocytes # (A) 0.4 k/uL (0-1.0); Monocytes % (A) 3 %; Neutrophils # (A) 10.8 k/uL (1.3-7.7); Neutrophils % (A) 86 %; Platelet Count 388 k/uL (150-450); RBC 3.76 m/uL (4.30-5.90); RDW 14.2 % (11.5-15.5); WBC 12.6 k/uL (3.8-10.6)
--- NOTE | 2023-06-16 12:31 | P.HPIM ---
History of Present Illness H&P Date: 06/16/23 Chief Complaint: Shortness of breath * 67-year-old gentleman with past medical history significant for COPD, chronic hypoxic respiratory failure on 2 L of oxygen non-Hodgkin lymphoma, history of nicotine dependence, rheumatoid arthritis presents to the emergency department with complaints of shortness of breath. Patient has been hospitalized few months ago with similar presentation and was treated for community-acquired pneumonia as well as acute exacerbation of COPD. Presents emergency department with complaints of shortness of breath, cough, increased congestion and increased work of breathing * EMS was called and patient was noted to be significantly hypoxic. * Workup initiated in ER included CBC which showed WBC count of 22.5 hemoglobin 12.6 platelet count of 383, INR of 1.1 * Serum chemistry obtained showed sodium of 130 potassium 3.9 complex at 28 BUN 13 creatinine 0.55 blood glucose 113 * Initial troponin was obtained which was within normal limits N-terminal proBNP 523 * Patient was tested negative for influenza, RSV and COVID REVIEW OF SYSTEMS: Cough, shortness of breath, sputum production CONSTITUTIONAL: No fever, no malaise, no fatigue. HEENT: No recent visual problems or hearing problems. Denied any sore throat. CARDIOVASCULAR: No chest pain, orthopnea, PND, no palpitations, no syncope. PULMONARY: No shortness of breath, no cough, no hemoptysis. GASTROINTESTINAL: No diarrhea, no nausea, no vomiting, no abdominal pain. NEUROLOGICAL: No headaches, no weakness, no numbness. HEMATOLOGICAL: Denies any bleeding or petechiae. GENITOURINARY: Denies any burning micturition, frequency, or urgency. MUSCULOSKELETAL/RHEUMATOLOGICAL: Denies any joint pain, swelling, or any muscle pain. ENDOCRINE: Denies any polyuria or polydipsia. PHYSICAL EXAMINATION: GENERAL: The patient is alert and oriented x3, 2 L of oxygen to nasal cannula, ill appearance HEENT: Pupils are round and equally reacting to light. EOMI. CARDIOVASCULAR: S1 and S2 present. No murmurs, rubs, or gallops. PULMONARY: Wheezing audible, decreased breath sounds ABDOMEN: Soft, nontender, nondistended, normoactive bowel sounds. No palpable organomegaly. MUSCULOSKELETAL: No joint swelling or deformity. EXTREMITIES: No cyanosis, clubbing, or pedal edema. NEUROLOGICAL: Gross neurological examination did not reveal any focal deficits. SKIN: No rashes. Past Medical History Past Medical History: Asthma, Cancer, COPD, Rheumatoid Arthritis (RA) Additional Past Medical History / Comment(s): Leukemia, SPLEENOMEGLY now normal, heart cath with stent History of Any Multi-Drug Resistant Organisms: C-DIFF Date of last positivie culture/infection: 2013 MDRO Source:: stool Past Surgical History: Orthopedic Surgery Additional Past Surgical History / Comment(s): TESTICULAR SURGERY, LT KNEE TORN LIGAMENT REPAIR, LT CHEEK BONE FX-SX REPAIRED Past Anesthesia/Blood Transfusion Reactions: No Reported Reaction Past Psychological History: No Psychological Hx Reported Smoking Status: Former smoker Past Alcohol Use History: Occasional Past Drug Use History: None Reported - Past Family History Father Additional Family Medical History / Comment(s): AT AGE 51- SUICIDE Mother Additional Family Medical History / Comment(s): MOM AGE 67- BRAIN HEMORRAGE. Mother history of Crohn's disease Medications and Allergies Home Medications Medication Instructions Recorded Confirmed Type Budesonide-Formot 160-4.5 Mcg 2 puff INHALATION RT-BID 30 Days 01/01/23 06/15/23 Rx [Symbicort 160-4.5 Mcg Inhaler] #1 each Albuterol Nebulized [Ventolin 2.5 mg INHALATION RT-QID PRN 06/15/23 06/15/23 History Nebulized] Albuterol Sulfate [Albuterol 2 puff PO RT-Q6H PRN 06/15/23 06/15/23 History Sulfate Hfa] Allergies Allergy/AdvReac Type Severity Reaction Status Date / Time morphine Allergy Unknown Verified 06/15/23 13:53 Physical Exam Vitals: Vital Signs Temp Pulse Pulse Resp BP BP Pulse Ox 06/16/23 09:15 64 06/16/23 09:08 64 96 06/16/23 06:14 63 20 119/73 97 06/16/23 04:07 56 L 18 118/71 97 06/16/23 03:31 57 L 18 102/66 97 06/16/23 02:00 59 L 20 93/62 96 06/16/23 01:00 64 18 118/72 96 06/16/23 00:15 65 22 91/66 97 06/15/23 23:00 70 20 93/53 96 06/15/23 19:44 85 06/15/23 19:32 80 06/15/23 16:57 98.0 F 73 20 90/73 94 L 06/15/23 16:44 78 06/15/23 16:34 75 06/15/23 15:13 82 22 91/66 93 L 06/15/23 13:26 77 22 91/58 90 L 06/15/23 12:27 80 06/15/23 12:13 82 06/15/23 11:51 79 20 94/60 92 L Intake and Output 06/15/23 06/16/23 06/16/23 22:59 06:59 14:59 Output Total 300 Balance -300 Output: Urine 300 Results CBC & Chem 7: 06/16/23 10:23 06/16/23 10:23 Labs: Abnormal Lab Results - Last 24 Hours (Table) 06/15/23 06/15/23 Range/Units 11:04 11:55 WBC 22.5 H (3.8-10.6) k/uL RBC 4.29 L (4.30-5.90) m/uL Hgb 12.6 L (13.0-17.5) gm/dL Hct 36.1 L (39.0-53.0) % Neutrophils # 20.1 H (1.3-7.7) k/uL Sodium 130 L (137-145) mmol/L Creatinine 0.55 L (0.66-1.25) mg/dL Glucose 113 H (74-99) mg/dL Alkaline Phosphatase 214 H (38-126) U/L Total Protein 5.1 L (6.3-8.2) g/dL Albumin 2.9 L (3.5-5.0) g/dL Thrombosis Risk Factor Assmnt - DVT/VTE Prophylaxis DVT/VTE Prophylaxis: Pharmacologic Prophylaxis ordered, Mechanical Prophylaxis ordered Assessment and Plan Assessment: Assessment and plan * Acute exacerbation of COPD * Right lower lobe pneumonia * Acute on chronic hypoxic respiratory failure * Acute hypoxic respiratory failure * History of non-Hodgkin lymphoma * History of rheumatoid arthritis * In regards to acute exacerbation of COPD, continue patient on breathing treatments continue IV Solu-Medrol and IV antibiotic * In regards to right lower lobe pneumonia chest x-ray reviewed, continue patient on Rocephin and azithromycin continue breathing treatments IV Solu- Medrol, continue Mucinex * In regards to acute hypoxic respiratory failure, continue oxygen supplementation pulmonary medicine consulted * CODE STATUS is full code Time with Patient: Greater than 30
[2023-06-16] MEDS: SYMBICORT 160-4.5 MCG INHALER INHALATION SCH (20:24)
--- NOTE | 2023-06-17 02:38 | P.CNPUL ---
History of Present Illness Consult date: 06/17/23 Requesting physician: Shakila Lacey Reason for consult: COPD, pneumonia Chief complaint: Shortness of breath, productive cough, subjective fevers History of present illness: I am seeing this patient in new consultation today May after he presented with severe symptoms of shortness of breath, productive cough and subjective fevers. Patient is a 67-year-old male who has past medical history significant for severe oxygen and steroid-dependent COPD, non-Hodgkin lymphoma, splenomegaly, and former tobacco smoker. He does have moderate to severe oxygen and steroid-dependent COPD, and follows with Dr. Gonsales in the pulmonary office.. His most recent FEV1 is 49% of predicted. He takes 5 mg of prednisone daily. He is on 2 L/min nasal cannula 08/12. He takes a combination of S ymbicort inhaler, albuterol nebs and Ventolin HFA rescue inhaler. He states that he stopped smoking May 24 when he started to feel sick. Patient states that the first week of May, he started develop progressively worsening shortness of breath accompanied with a productive cough and copious amounts of green sputum. He has had subjective fevers and chest congestion. He also more recently developed right-sided chest pain that radiates to his right thoracic level back. This is worse with coughing and deep breathing. He came to the emergency room on June 15 for these symptoms. Patient is currently lying in bed, on 2 L/min nasal cannula, in no acute distress. Chest x-ray demon strates patchy airspace disease throughout the right mid and lower lung shaffer. CBC on arrival has leukocytosis with a WC count of 22.5, hemoglobin 12.6, hematocrit 36.1, platelets 383. BMP prevention fairly unremarkable. Troponins less than 0.012. NT proBNP 523. Troponin 1.3. Negative for influenza, RSV, COVID. Urine Legionella antigen negative. Patient is currently afebrile. He has been started on a combination of azithromycin and Rocephin. He is hemodynamically stable. Review of Systems REVIEW OF SYSTEMS: CONSTITUTIONAL: Denies any recent significant weight loss or weight gain. EYES: Denies change in vision. EARS, NOSE, MOUTH, THROAT: Denies headaches, denies sore throat. CARDIOVASCULAR: Denies palpitations, syncopal episodes, or lower extremity swe lling.. RESPIRATORY: see HPI GASTROINTESTINAL: Denies change in appetite, abdominal pain, or diarrhea. Admits isolated episode of nausea and vomiting with mostly clear emesis. No hematemesis. GENITOURINARY: Denies hematuria, denies infections. MUSKULOSKELETAL: Denies pain, denies swelling. INTEGUMENTARY: Denies rash, denies eczema. NEUROLOGICAL: Denies recent memory loss, no recent seizure activity. PSYCHIATRIC: Denies anxiety, denies depression. HEMATOLOGIC/LYMPHATIC: Denies anemia, denies enlarged lymph node Past Medical History Past Medical History: Asthma, Cancer, COPD, Rheumatoid Arthritis (RA) Additional Past Medical History / Comment(s): Leukemia, SPLEENOMEGLY now normal, heart cath with stent History of Any Multi-Drug Resistant Organisms: C-DIFF Date of last positivie culture/infection: 2013 MDRO Source:: stool Past Surgical History: Orthopedic Surgery Additional Past Surgical History / Comment(s): TESTICULAR SURGERY, LT KNEE TORN LIGAMENT REPAIR, LT CHEEK BONE FX-SX REPAIRED Past Anesthesia/Blood Transfusion Reactions: No Reported Reaction Past Psychological History: No Psychological Hx Reported Smoking Status: Former smoker Past Alcohol Use History: Occasional Past Drug Use History: None Reported - Past Family History Father Additional Family Medical History / Comment(s): AT AGE 51- SUICIDE Mother Additional Family Medical History / Comment(s): MOM AGE 67- BRAIN HEMORRAGE. Mother history of Crohn's disease Medications and Allergies Home Medications Medication Instructions Recorded Confirmed Type Budesonide-Formot 160-4.5 Mcg 2 puff INHALATION RT-BID 30 Days 01/01/23 06/15/23 Rx [Symbicort 160-4.5 Mcg Inhaler] #1 each Albuterol Nebulized [Ventolin 2.5 mg INHALATION RT-QID PRN 06/15/23 06/15/23 History Nebulized] Albuterol Sulfate [Albuterol 2 puff PO RT-Q6H PRN 06/15/23 06/15/23 History Sulfate Hfa] Allergies Allergy/AdvReac Type Severity Reaction Status Date / Time morphine Allergy Unknown Verified 06/15/23 13:53 Physical Exam Vitals: Vital Signs Temp Pulse Pulse Resp BP BP Pulse Ox 06/16/23 20:40 68 06/16/23 20:25 64 06/16/23 20:14 97.9 F 75 20 113/76 98 06/16/23 17:21 65 20 90/59 96 06/16/23 15:24 66 06/16/23 15:11 66 06/16/23 12:10 97.0 F L 99 20 103/57 99 06/16/23 11:46 62 06/16/23 11:36 62 06/16/23 09:15 64 06/16/23 09:08 64 96 06/16/23 06:14 63 20 119/73 97 06/16/23 04:07 56 L 18 118/71 97 06/16/23 03:31 57 L 18 102/66 97 Intake and Output 06/16/23 06/16/23 06/17/23 14:59 22:59 06:59 Output Total 600 1125 Balance -600 -1125 Output: Urine 600 550 Stool 575 Other: Weight 78.018 kg GENERAL EXAM: Alert, 67-year-old white male, comfortable in no apparent distres s. HEAD: Normocephalic and atraumatic EYES: Normal reaction of pupils, equal size. NOSE: Clear with pink turbinates. THROAT: No erythema or exudates. NECK: No masses, no JVD. CHEST: No chest wall deformity. LUNGS: Equal air entry with expiratory wheezes heard throughout and right lower lobe inspiratory crackles. On 2 L/min nasal cannula. No conversational dyspnea or accessory muscle use.. CVS: S1 and S2 normal with no audible murmur, regular rhythm. No extra heart sounds ABDOMEN: No hepatosplenomegaly, active bowel sounds, no guarding or rigidity. SPINE: No scoliosis or deformity SKIN: No rashes CENTRAL NERVOUS SYSTEM: No focal deficits, tone is normal in all 4 extremities. EXTREMITIES: There is no peripheral edema, clubbing, or cyanosis. Peripheral pulses are intact. Results - Laboratory Findings CBC and BMP: 06/16/23 10:23 06/16/23 10:23 PT/INR, D-dimer PT 11.6 sec (10.0-12.5) 06/15/23 11:04 INR 1.1 (<1.2) 06/15/23 11:04 Abnormal lab findings: Abnormal Labs 06/15/23 06/15/23 06/16/23 11:04 11:55 10:23 WBC 22.5 H 12.6 H RBC 4.29 L 3.76 L Hgb 12.6 L 10.9 L Hct 36.1 L 32.5 L Neutrophils # 20.1 H 10.8 H Sodium 130 L Chloride Creatinine 0.55 L Glucose 113 H Calcium Alkaline Phosphatase 214 H Total Protein 5.1 L Albumin 2.9 L 06/16/23 10:23 WBC RBC Hgb Hct Neutrophils # Sodium 132 L Chloride 97 L Creatinine 0.54 L Glucose 154 H Calcium 8.3 L Alkaline Phosphatase Total Protein Albumin - Diagnostic Findings Chest x-ray: image reviewed Assessment and Plan Assessment: Acute on chronic hypoxemic respiratory failure, secondary to combination of acute COPD exacerbation and right middle and lower lobe community-acquired pneumonia. Chest x-ray demonstrates patchy airspace disease throughout the right mid and lower lung shaffer. Negative for influenza, RSV, COVID. History of moderate to severe oxygen and steroid-dependent COPD History of previous hospitalization for pneumonia History of non-Hodgkin lymphoma History of rheumatoid arthritis Recent former tobacco smoker, quit May 24 Plan: Patient's medications, labs, chest x-ray reviewed Continue supplemental oxygen, patient is chronically oxygen dependent on 2 L at home. Continue combination of azithromycin and Rocephin. Sputum culture is pending Continue combination of DuoNebs [id number], Symbicort inhaler, and IV Solu-Medrol Patient states that he is having difficulty see clearing his mucus. Mucinex was added earlier. Add flutter valve We will continue to follow I have personally seen and examined the patient, performed the documentation and the assessment and plan as written. Number of minutes spent on the visit:20 Time with Patient: Greater than 30
[2023-06-17] MEDS: ALBUTEROL NEBULIZED 2.5 MG/3 ML INHALATION PRN (03:01)
[2023-06-17] MEDS: methylPREDNISolone SOD SUCCI 125 MG/2 ML VIAL IV SCH (05:28)
[2023-06-17 07:11] LABS: HCT 31.7 % (39.0-53.0); HGB 10.6 gm/dL (13.0-17.5); Hypochromasia Slight; MCHC 33.5 g/dL (31.0-37.0); MCV 86.5 fL (80.0-100.0); Mean Platelet Volume 7.1; Platelet Count 428 k/uL (150-450); RBC 3.66 m/uL (4.30-5.90); RDW 14.1 % (11.5-15.5); WBC 19.7 k/uL (3.8-10.6)
[2023-06-17 07:34] LABS: Potassium 4.2 mmol/L (3.5-5.1)
[2023-06-17 07:38] LABS: African American GFR (CKD) >90 (>60 ml/min/1.73 sqM); Anion Gap 5 mmol/L; Blood Urea Nitrogen 13 mg/dL (9-20); Calcium 8.9 mg/dL (8.4-10.2); Carbon Dioxide 27 mmol/L (22-30); Chloride 102 mmol/L (98-107); Glucose 147 mg/dL (74-99); Non-African American GFR(CKD) >90 (>60 ml/min/1.73 sqM); Sodium 134 mmol/L (137-145)
[2023-06-17] MEDS: IPRATROPIUM-ALBUTEROL 3 ML NEB INHALATION SCH (07:56)
[2023-06-17 08:00] LABS: C Reactive Protein 14.6 mg/dL (<1.0)
[2023-06-17] MEDS: ENOXAPARIN 40 MG/0.4 ML SYRINGE SQ SCH (08:36)
[2023-06-17] MEDS: SODIUM CHLORIDE 0.9% 1,000 ML IV SCH (10:02)
--- NOTE | 2023-06-17 12:08 | P.PN ---
Subjective Progress Note Date: 06/17/23 * 67-year-old gentleman with past medical history significant for COPD, chronic hypoxic respiratory failure on 2 L of oxygen non-Hodgkin lymphoma, history of nicotine dependence, rheumatoid arthritis presents to the emergency department with complaints of shortness of breath. Patient has been hospitalized few months ago with similar presentation and was treated for community-acquired pneumonia as well as acute exacerbation of COPD. Presents emergency department with complaints of shortness of breath, cough, increased congestion and increased work of breathing * EMS was called and patient was noted to be significantly hypoxic. * Workup initiated in ER included CBC which showed WBC count of 22.5 hemoglobin 12.6 platelet count of 383, INR of 1.1 * Serum chemistry obtained showed sodium of 130 potassium 3.9 complex at 28 BUN 13 creatinine 0.55 blood glucose 113 * Initial troponin was obtained which was within normal limits N-terminal proBNP 523 * Patient was tested negative for influenza, RSV and COVID * 06/17/2023: Patient seen and evaluated bedside, patient states breathing has improved but does have productive phlegm, on 2 L of oxygen. WBC count elevated, appreciate input from pulmonary medicine. Continue patient on Rocephin and azithromycin to complete total 5-day course of antibiotic cont inue IV Solu-Medrol REVIEW OF SYSTEMS: Cough, shortness of breath, sputum production CONSTITUTIONAL: No fever, no malaise, no fatigue. HEENT: No recent visual problems or hearing problems. Denied any sore throat. CARDIOVASCULAR: No chest pain, orthopnea, PND, no palpitations, no syncope. PULMONARY: No shortness of breath, no cough, no hemoptysis. GASTROINTESTINAL: No diarrhea, no nausea, no vomiting, no abdominal pain. NEUROLOGICAL: No headaches, no weakness, no numbness. HEMATOLOGICAL: Denies any bleeding or petechiae. GENITOURINARY: Denies any burning micturition, frequency, or urgency. MUSCULOSKELETAL/RHEUMATOLOGICAL: Denies any joint pain, swelling, or any muscle pain. ENDOCRINE: Denies any polyuria or polydipsia. PHYSICAL EXAMINATION: GENERAL: The patient is alert and oriented x3, 2 L of oxygen to nasal cannula, ill appearance HEENT: Pupils are round and equally reacting to light. EOMI. CARDIOVASCULAR: S1 and S2 present. No murmurs, rubs, or gallops. PULMONARY: Wheezing resolved, decreased breath sounds ABDOMEN: Soft, nontender, nondistended, normoactive bowel sounds. No palpable organomegaly. MUSCULOSKELETAL: No joint swelling or deformity. EXTREMITIES: No cyanosis, clubbing, or pedal edema. NEUROLOGICAL: Gross neurological examination did not reveal any focal deficits. SKIN: No rashes. Objective - Vital Signs Vital signs: Vital Signs Temp 98.1 F 06/17/23 07:39 Pulse 78 06/17/23 11:49 Resp 20 06/17/23 07:39 BP 95/56 06/17/23 07:39 Pulse Ox 95 06/17/23 07:58 FiO2 Intake & Output 06/16/23 06/17/23 06/17/23 18:59 06:59 18:59 Intake Total 200 Output Total 1725 Balance -1725 200 Weight 78.018 kg Intake: Oral 200 Output: Urine 1150 Stool 575 - Labs CBC & Chem 7: 06/17/23 06:33 06/17/23 06:33 Labs: Abnormal Lab Results - Last 24 Hours (Table) 06/17/23 06/17/23 Range/Units 06:33 06:33 WBC 19.7 H (3.8-10.6) k/uL RBC 3.66 L (4.30-5.90) m/uL Hgb 10.6 L (13.0-17.5) gm/dL Hct 31.7 L (39.0-53.0) % Sodium 134 L (137-145) mmol/L Creatinine 0.55 L (0.66-1.25) mg/dL Glucose 147 H (74-99) mg/dL C-Reactive Protein 14.6 H (<1.0) mg/dL Microbiology - Last 24 Hours (Table) 06/15/23 13:50 Blood Culture - Preliminary Blood 06/15/23 13:05 Blood Culture - Preliminary Blood 06/15/23 17:01 Gram Stain - Preliminary Sputum Assessment and Plan Assessment: Assessment and plan * Acute exacerbation of COPD * Right lower lobe pneumonia * Acute on chronic hypoxic respiratory failure * Acute hypoxic respiratory failure * History of non-Hodgkin lymphoma * History of rheumatoid arthritis * In regards to acute exacerbation of COPD, continue patient on breathing treatments continue IV Solu-Medrol and IV antibiotic * In regards to right lower lobe pneumonia chest x-ray reviewed, continue patient on Rocephin and azithromycin DAY 2 >> continue breathing treatments IV Solu-Medrol, continue Mucinex * In regards to acute hypoxic respiratory failure, continue oxygen supplementation pulmonary medicine consulted * CODE STATUS is full code Time with Patient: Greater than 30
[2023-06-17] MEDS: MELATONIN 5 MG TABLET PO PRN (22:46)
[2023-06-18] MEDS: AZITHROMYCIN 500 MG TAB PO SCH (08:29)
[2023-06-18 09:46] LABS: HCT 31.3 % (39.0-53.0); HGB 9.9 gm/dL (13.0-17.5); Hypochromasia Moderate; MCHC 31.5 g/dL (31.0-37.0); Mean Platelet Volume 7.7; Platelet Count 429 k/uL (150-450); RBC 3.52 m/uL (4.30-5.90); RDW 14.2 % (11.5-15.5); WBC 21.2 k/uL (3.8-10.6)
[2023-06-18 10:11] LABS: African American GFR (CKD) >90 (>60 ml/min/1.73 sqM); Anion Gap 9 mmol/L; Blood Urea Nitrogen 16 mg/dL (9-20); Carbon Dioxide 25 mmol/L (22-30); Chloride 104 mmol/L (98-107); Glucose 168 mg/dL (74-99); Non-African American GFR(CKD) >90 (>60 ml/min/1.73 sqM); Potassium 4.6 mmol/L (3.5-5.1); Sodium 138 mmol/L (137-145)
--- NOTE | 2023-06-18 12:20 | P.PN ---
Subjective Progress Note Date: 06/18/23 Principal diagnosis: OPD exacerbation, pneumonia. I am seeing this patient in new consultation today May after he presented with severe symptoms of shortness of breath, productive cough and subjective fevers. Patient is a 67-year-old male who has past medical history significant for severe oxygen and steroid-dependent COPD, non-Hodgkin lymphoma, splenomegaly, and former tobacco smoker. He does have moderate to severe oxygen and steroid-dependent COPD, and follows with Dr. Gonsales in the pulmonary office.. His most recent FEV1 is 49% of predicted. He takes 5 mg of prednisone daily. He is on 2 L/min nasal cannula 08/12. He takes a combination of Symbicor t inhaler, albuterol nebs and Ventolin HFA rescue inhaler. He states that he stopped smoking May 24 when he started to feel sick. Patient states that the first week of May, he started develop progressively worsening shortness of breath accompanied with a productive cough and copious amounts of green sputum. He has had subjective fevers and chest congestion. He also more recently developed right-sided chest pain that radiates to his right thoracic level back. This is worse with coughing and deep breathing. He came to the emergency room on June 15 for these symptoms. Patient is currently lying in bed, on 2 L/min nasal cannula, in no acute distress. Chest x-ray demonstrates patchy airspace disease throughout the right mid and lower lung shaffer. CBC on arrival has leukocytosis with a WC count of 22.5, hemoglobin 12.6, hematocrit 36.1, platelets 383. BMP prevention fairly unremarkable. Troponins less than 0.012. NT proBNP 523. Troponin 1.3. Negative for influenza, RSV, COVID. Urine Legionella antigen negative. Patient is currently afebrile. He has been started on a combination of azithromycin and Rocephin. He is hemodynamically stable. Progress note dated June 18, 2023. The patient was seen in consultation yesterday. He presented with complaints of shortness of breath, and was admitted with a diagnosis of COPD exacerbation, and pneumonia. The patient is seen today in room 158, observation unit. The patient remains on azithromycin and Rocephin. Chest x-ray is ordered for tomorrow. His oxygen is at 2 L by nasal cannula, and is getting saline at 75 cc an hour. White count is 21.2, hemoglobin 9.9, hematocrit 31.3, and platelet count 429,000. Sodium 138, potassium 4.6, chlorides 104, CO2 25, BUN 16, creatinine 0.56. Albumin is 2.9. Urinary Legionella antigen is negative. Thus far, microbiology is negative. A chest x-ray is ordered for tomorrow morning. Objective - Vital Signs Vital signs: Vital Signs Temp 95.9 F L 06/18/23 07:27 Pulse 75 06/18/23 11:42 Resp 20 06/18/23 07:27 BP 96/65 06/18/23 07:27 Pulse Ox 95 06/18/23 08:33 FiO2 Intake & Output 06/17/23 06/18/23 06/18/23 18:59 06:59 18:59 Intake Total 1300 Balance 1300 Intake: Intake, IV Titration 700 Amount Sodium Chloride 0.9% 1, 600 000 ml @ 75 mls/hr IV . [id number] [facility] Rx#:[id number] cefTRIAXone 2 gm In 100 Sodium Chloride 0.9% 50 ml @ 100 mls/hr IVPB Q24HR [facility] Rx#:[id number] Oral 600 Other: # Voids 2 # Bowel Movements 0 - Exam No acute distress, oriented 3. No conversational dyspnea or use of accessory muscles. HEENT examination is grossly unremarkable. Mucous membranes are moist. No oral lesions. Neck supple. Full range of motion. No adenopathy thyromegaly or neck vein distention. Cardiovascular examination reveals regular rhythm rate. S1-S2 normal. No S3 or S4. No discernible murmur noted. Heart sounds are distant. Heart rate 75 bpm. Lungs reveal bilateral rhonchi and wheezes. Breath sounds are equal. No crackles. Saturations are 95% on 2 L. Abdomen soft bowel sounds are heard. No masses or tenderness. Extremities are intact. No cyanosis clubbing or edema. Skin is without rash or lesion. Neurologic examination is brief but nonfocal. - Labs CBC & Chem 7: 06/18/23 08:46 06/18/23 08:46 Labs: Abnormal Lab Results - Last 24 Hours (Table) 06/18/23 06/18/23 Range/Units 08:46 08:46 WBC 21.2 H (3.8-10.6) k/uL RBC 3.52 L (4.30-5.90) m/uL Hgb 9.9 L (13.0-17.5) gm/dL Hct 31.3 L (39.0-53.0) % Creatinine 0.56 L (0.66-1.25) mg/dL Glucose 168 H (74-99) mg/dL Microbiology - Last 24 Hours (Table) 06/15/23 17:01 Gram Stain - Final Sputum Sputum Culture - Final 06/15/23 13:50 Blood Culture - Preliminary Blood 06/15/23 13:05 Blood Culture - Preliminary Blood Assessment and Plan Assessment: Acute on chronic hypoxemic respiratory failure, secondary to combination of acute COPD exacerbation and right middle and lower lobe community-acquired pneumonia. History of severe oxygen and steroid-dependent COPD. History of previous hospitalization for pneumonia. History of non-Hodgkin lymphoma. History of rheumatoid arthritis. Recent former tobacco smoker, quit May 24. Plan: Plan dated June 18, 2023. The patient is seen today in room 158. The patient continues on 2 L. Saturations are adequate. The patient is getting saline at 75 cc an hour. The patient is currently on Rocephin and azithromycin, for community-acquired pneumonia. A procalcitonin level is pending. A chest x-ray is ordered for tomorrow. Labs, x-rays, and all medications are reviewed. The patient's overall prognosis remains guarded. The patient sees my partner in our office, for his COPD. His FEV1 is 49% of predicted, which means he has stage III/severe COPD. Time with Patient: Less than 30
--- NOTE | 2023-06-18 13:27 | P.PN ---
Subjective Progress Note Date: 06/18/23 * 67-year-old gentleman with past medical history significant for COPD, chronic hypoxic respiratory failure on 2 L of oxygen non-Hodgkin lymphoma, history of nicotine dependence, rheumatoid arthritis presents to the emergency department with complaints of shortness of breath. Patient has been hospitalized few months ago with similar presentation and was treated for community-acquired pneumonia as well as acute exacerbation of COPD. Presents emergency department with complaints of shortness of breath, cough, increased congestion and increased work of breathing * EMS was called and patient was noted to be significantly hypoxic. * Workup initiated in ER included CBC which showed WBC count of 22.5 hemoglobin 12.6 platelet count of 383, INR of 1.1 * Serum chemistry obtained showed sodium of 130 potassium 3.9 complex at 28 BUN 13 creatinine 0.55 blood glucose 113 * Initial troponin was obtained which was within normal limits N-terminal proBNP 523 * Patient was tested negative for influenza, RSV and COVID * 06/17/2023: Patient seen and evaluated bedside, patient states breathing has improved but does have productive phlegm, on 2 L of oxygen. WBC count elevated, appreciate input from pulmonary medicine. Continue patient on Rocephin and azithromycin to complete total 5-day course of antibiotic cont inue IV Solu-Medrol * 06/18/2023: Patient seen and evaluated bedside, during my evaluation patient is awake and alert eating lunch, patient's breathing has improved. We will wean down on Solu-Medrol. Continue IV antibiotics. Continue patient on antibiotic and breathing treatment REVIEW OF SYSTEMS: Cough, shortness of breath, sputum production improved CONSTITUTIONAL: No fever, no malaise, no fatigue. HEENT: No recent visual problems or hearing problems. Denied any sore throat. CARDIOVASCULAR: No chest pain, orthopnea, PND, no palpitations, no syncope. PULMONARY: No shortness of breath, no cough, no hemoptysis. GASTROINTESTINAL: No diarrhea, no nausea, no vomiting, no abdominal pain. NEUROLOGICAL: No headaches, no weakness, no numbness. HEMATOLOGICAL: Denies any bleeding or petechiae. GENITOURINARY: Denies any burning micturition, frequency, or urgency. MUSCULOSKELETAL/RHEUMATOLOGICAL: Denies any joint pain, swelling, or any muscle pain. ENDOCRINE: Denies any polyuria or polydipsia. PHYSICAL EXAMINATION: GENERAL: The patient is alert and oriented x3, 2 L of oxygen to nasal cannula, HEENT: Pupils are round and equally reacting to light. EOMI. CARDIOVASCULAR: S1 and S2 present. No murmurs, rubs, or gallops. PULMONARY: Wheezing resolved, breath sounds has improved ABDOMEN: Soft, nontender, nondistended, normoactive bowel sounds. No palpable organomegaly. MUSCULOSKELETAL: No joint swelling or deformity. EXTREMITIES: No cyanosis, clubbing, or pedal edema. NEUROLOGICAL: Gross neurological examination did not reveal any focal deficits. SKIN: No rashes. Objective - Vital Signs Vital signs: Vital Signs Temp 95.9 F L 06/18/23 07:27 Pulse 75 06/18/23 11:42 Resp 20 06/18/23 07:27 BP 96/65 06/18/23 07:27 Pulse Ox 95 06/18/23 08:33 FiO2 Intake & Output 06/17/23 06/18/23 06/18/23 18:59 06:59 18:59 Intake Total 1300 Balance 1300 Intake: Intake, IV Titration 700 Amount Sodium Chloride 0.9% 1, 600 000 ml @ 75 mls/hr IV . [id number] [facility] Rx#:[id number] cefTRIAXone 2 gm In 100 Sodium Chloride 0.9% 50 ml @ 100 mls/hr IVPB Q24HR [facility] Rx#:[id number] Oral 600 Other: # Voids 2 # Bowel Movements 0 - Labs CBC & Chem 7: 06/18/23 08:46 06/18/23 08:46 Labs: Abnormal Lab Results - Last 24 Hours (Table) 06/18/23 06/18/23 Range/Units 08:46 08:46 WBC 21.2 H (3.8-10.6) k/uL RBC 3.52 L (4.30-5.90) m/uL Hgb 9.9 L (13.0-17.5) gm/dL Hct 31.3 L (39.0-53.0) % Creatinine 0.56 L (0.66-1.25) mg/dL Glucose 168 H (74-99) mg/dL Microbiology - Last 24 Hours (Table) 06/15/23 17:01 Gram Stain - Final Sputum Sputum Culture - Final 06/15/23 13:50 Blood Culture - Preliminary Blood 06/15/23 13:05 Blood Culture - Preliminary Blood Assessment and Plan Assessment: Assessment and plan * Acute exacerbation of COPD * Right lower lobe pneumonia * Acute on chronic hypoxic respiratory failure * Acute hypoxic respiratory failure * History of non-Hodgkin lymphoma * History of rheumatoid arthritis * In regards to acute exacerbation of COPD, continue patient on breathing treatments continue IV Solu-Medrol and IV antibiotic * In regards to right lower lobe pneumonia chest x-ray reviewed, continue patient on Rocephin and azithromycin DAY 3 >> continue breathing treatments IV Solu-Medrol WEANED , continue Mucinex * In regards to acute hypoxic respiratory failure, continue oxygen s upplementation pulmonary medicine consulted * CODE STATUS is full code
[2023-06-18] MEDS: methylPREDNISolone SOD SUCCI 125 MG/2 ML VIAL IV SCH (20:44)
[2023-06-19] MEDS: predniSONE 20 MG TAB PO SCH (08:42)
--- NOTE | 2023-06-19 09:22 | XR ---
EXAMINATION TYPE: XR chest 1V portable DATE OF EXAM: 06/19/2023 6:57 AM CLINICAL INDICATION:Male, 67 years old with history of Pneumonia; COMPARISON: Chest radiographs from 06/16/2023 TECHNIQUE: XR chest 1V portable Frontal view of the chest. FINDINGS: Lungs/Pleura: Improved aeration of the right lung in today's exam. There is no evidence of pleural ef fusion, focal consolidation, or pneumothorax. Pulmonary vascularity: Unremarkable. Heart/mediastinum: Cardiomediastinal silhouette is unremarkable. Atherosclerotic calcifications are seen in the aorta. Musculoskeletal: No acute osseous pathology. Remote right-sided rib injuries. Other findings: None IMPRESSION: Improved aeration of the right lung base. Persistent subtle airspace opacities.
[2023-06-19 11:09] LABS: HCT 29.7 % (39.6-50.0); HGB 9.4 g/dL (13.0-17.0); MCH 27.9 pg (27.0-32.0); MCHC 31.6 g/dL (32.0-37.0); MCV 88.1 FL (80.0-97.0); Mean Platelet Volume 8.9 FL (9.5-12.2); NRBC Per 100 WBC 0.02 X 10*3/uL (0.00-0.01); Platelet Count 410 X 10*3/uL (140-440); RBC 3.37 X 10*6/uL (4.40-5.60); RDW 14.6 % (11.5-14.5); WBC 18.43 X 10*3/uL (4.50-10.00)
[2023-06-19 11:45] LABS: BUN/Creat Ratio 23.38 Ratio (12.00-20.00); Blood Urea Nitrogen 18.7 mg/dL (9.0-27.0); Calcium 8.9 mg/dL (8.7-10.3); Carbon Dioxide 27.6 mmol/L (21.6-31.8); Chloride 105 mmol/L (96-109); Glucose 107 mg/dL (70-110); Potassium 4.9 mmol/L (3.5-5.5); Sodium 143 mmol/L (135-145)
--- NOTE | 2023-06-19 12:27 | P.PN ---
Subjective Progress Note Date: 06/19/23 * 67-year-old gentleman with past medical history significant for COPD, chronic hypoxic respiratory failure on 2 L of oxygen non-Hodgkin lymphoma, history of nicotine dependence, rheumatoid arthritis presents to the emergency department with complaints of shortness of breath. Patient has been hospitalized few months ago with similar presentation and was treated for community-acquired pneumonia as well as acute exacerbation of COPD. Presents emergency department with complaints of shortness of breath, cough, increased congestion and increased work of breathing * EMS was called and patient was noted to be significantly hypoxic. * Workup initiated in ER included CBC which showed WBC count of 22.5 hemoglobin 12.6 platelet count of 383, INR of 1.1 * Serum chemistry obtained showed sodium of 130 potassium 3.9 complex at 28 BUN 13 creatinine 0.55 blood glucose 113 * Initial troponin was obtained which was within normal limits N-terminal proBNP 523 * Patient was tested negative for influenza, RSV and COVID * 06/17/2023: Patient seen and evaluated bedside, patient states breathing has improved but does have productive phlegm, on 2 L of oxygen. WBC count elevated, appreciate input from pulmonary medicine. Continue patient on Rocephin and azithromycin to complete total 5-day course of antibiotic cont inue IV Solu-Medrol * 06/18/2023: Patient seen and evaluated bedside, during my evaluation patient is awake and alert eating lunch, patient's breathing has improved. We will wean down on Solu-Medrol. Continue IV antibiotics. Continue patient on antibiotic and breathing treatment * 06/19/2023: Patient seen and evaluated at bedside, on evaluation patient is awake and alert states breathing has improved, WBC count 18.4 hemoglobin 9.4 platelet count 410 CRP of 2.3, better improved from 14.6 urine Legionella negative REVIEW OF SYSTEMS: Cough, shortness of breath, sputum production improved CONSTITUTIONAL: No fever, no malaise, no fatigue. HEENT: No recent visual problems or hearing problems. Denied any sore throat. CARDIOVASCULAR: No chest pain, orthopnea, PND, no palpitations, no syncope. PULMONARY: No shortness of breath, no cough, no hemoptysis. GASTROINTESTINAL: No diarrhea, no nausea, no vomiting, no abdominal pain. NEUROLOGICAL: No headaches, no weakness, no numbness. HEMATOLOGICAL: Denies any bleeding or petechiae. GENITOURINARY: Denies any burning micturition, frequency, or urgency. MUSCULOSKELETAL/RHEUMATOLOGICAL: Denies any joint pain, swelling, or any muscle pain. ENDOCRINE: Denies any polyuria or polydipsia. PHYSICAL EXAMINATION: GENERAL: The patient is alert and oriented x3, 2 L of oxygen to nasal cannula, HEENT: Pupils are round and equally reacting to light. EOMI. CARDIOVASCULAR: S1 and S2 present. No murmurs, rubs, or gallops. PULMONARY: Wheezing resolved, breath sounds has improved ABDOMEN: Soft, nontender, nondistended, normoactive bowel sounds. No palpable organomegaly. MUSCULOSKELETAL: No joint swelling or deformity. EXTREMITIES: No cyanosis, clubbing, or pedal edema. NEUROLOGICAL: Gross neurological examination did not reveal any focal deficits. SKIN: No rashes. Objective - Vital Signs Vital signs: Vital Signs Temp 97.4 F L 06/19/23 07:09 Pulse 76 06/19/23 11:19 Resp 18 06/19/23 07:09 BP 125/80 06/19/23 07:09 Pulse Ox 97 06/19/23 07:39 FiO2 Intake & Output 06/18/23 06/19/23 06/19/23 18:59 06:59 18:59 Output Total 100 275 Balance -100 -275 Output: Urine 100 275 Other: # Voids 1 1 1 - Labs CBC & Chem 7: 06/19/23 06:40 06/19/23 06:40 Labs: Abnormal Lab Results - Last 24 Hours (Table) 06/19/23 06/19/23 Range/Units 06:40 06:40 WBC 18.43 H (4.50-10.00) X 10*3/uL RBC 3.37 L (4.40-5.60) X 10*6/uL Hgb 9.4 L (13.0-17.0) g/dL Hct 29.7 L (39.6-50.0) % MCHC 31.6 L (32.0-37.0) g/dL RDW 14.6 H (11.5-14.5) % MPV 8.9 L (9.5-12.2) FL NRBC/100 WBC Diff 0.02 H (0.00-0.01) X 10*3/uL BUN/Creatinine Ratio 23.38 H (12.00-20.00) Ratio C-Reactive Protein 2.30 H (0.00-0.80) mg/dL Microbiology - Last 24 Hours (Table) 06/15/23 13:50 Blood Culture - Preliminary Blood 06/15/23 13:05 Blood Culture - Preliminary Blood 06/15/23 17:01 Gram Stain - Final Sputum Sputum Culture - Final Assessment and Plan Assessment: Assessment and plan * Acute exacerbation of COPD * Right lower lobe pneumonia * Acute on chronic hypoxic respiratory failure * Acute hypoxic respiratory failure * History of non-Hodgkin lymphoma * History of rheumatoid arthritis * In regards to acute exacerbation of COPD, continue patient on breathing treatments continue IV Solu-Medrol and IV antibiotic * In regards to right lower lobe pneumonia chest x-ray reviewed, continue patient on Rocephin and azithromycin DAY 4/ >> continue breathing treatments, IV Solu-Medrol WEANED to oral prednisone, continue Mucinex * In regards to acute hypoxic respiratory failure, continue oxygen supplementation pulmonary medicine consulted * CODE STATUS is full code
--- NOTE | 2023-06-19 12:58 | P.PN ---
Subjective Progress Note Date: 06/19/23 I am seeing this patient in new consultation today May after he presented with severe symptoms of shortness of breath, productive cough and subjective fevers. Patient is a 67-year-old male who has past medical history significant for severe oxygen and steroid-dependent COPD, non-Hodgkin lymphoma, splenomegaly, and former tobacco smoker. He does have moderate to severe oxygen and steroid-dependent COPD, and follows with Dr. Gonsales in the pulmonary office.. His most recent FEV1 is 49% of predicted. He takes 5 mg of prednisone daily. He is on 2 L/min nasal cannula 08/12. He takes a combination of Symbicort inhaler, albuterol nebs and Ventolin HFA rescue inhaler. He states that he stopped smoking May 24 when he started to feel sick. Patient states that the first week of May, he started develop progressively worsening shortness of breath accompanied with a productive cough and copious amounts of green sputum. He has had subjective fevers and chest congestion. He also more recently developed right-sided chest pain that radiates to his right thoracic level back. This is worse with coughing and deep breathing. He came to the emergency room on June 15 for these symptoms. Patient is currently lying in bed, on 2 L/min nasal cannula, in no acute distress. Chest x-ray demonstrates patchy airspace disease throughout the right mid and lower lung shaffer. CBC on arrival has leukocytosis with a WC count of 22.5, hemoglobin 12.6, hematocrit 36.1, platelets 383. BMP prevention fairly unremarkable. Troponins less than 0.012. NT proBNP 523. Troponin 1.3. Negative for influenza, RSV, COVID. Urine Legionella antigen negative. Patient is currently afebrile. He has been started on a combination of azithromycin and Rocephin. He is hemodynamically stable. Progress note dated June 18, 2023. The patient was seen in consultation yesterday. He presented with complaints of shortness of breath, and was admitted with a diagnosis of COPD exacerbation, and pneumonia. The patient is seen today in room 158, observation unit. The patient remains on azithromycin and Rocephin. Chest x-ray is ordered for tomorrow. His oxygen is at 2 L by nasal cannula, and is getting saline at 75 cc an hour. White count is 21.2, hemoglobin 9.9, hematocrit 31.3, and platelet count 429,000. Sodium 138, potassium 4.6, chlorides 104, CO2 25, BUN 16, creatinine 0.56. Albumin is 2.9. Urinary Legionella antigen is negative. Thus far, microbiology is negative. A chest x-ray is ordered for tomorrow morning. The patient is seen today June 19, 2023 in follow-up on the regular medical floor. He is currently sitting up in bed. Awake and alert in no acute dis tress. Having breakfast. States he is breathing easier today compared to yesterday. He is maintaining O2 saturations in the 90s on 2 L/min per nasal cannula. He is continued on ceftriaxone and azithromycin. Normal saline at 125 MLS per hour. Remains on DuoNeb inhalations, Symbicort, Solu-Medrol. Continued on Lovenox for DVT prophylaxis. White count 18.4. Hemoglobin 9.4. Platelets 410. Sodium 143. Potassium 4.9. Bicarb 28. BUN 19. Creatinine 0.8. Glucose 107. Objective - Vital Signs Vital signs: Vital Signs Temp 97.4 F L 06/19/23 07:09 Pulse 76 06/19/23 11:19 Resp 18 06/19/23 07:09 BP 125/80 06/19/23 07:09 Pulse Ox 97 06/19/23 07:39 FiO2 Intake & Output 06/18/23 06/19/23 06/19/23 18:59 06:59 18:59 Output Total 100 275 Balance -100 -275 Output: Urine 100 275 Other: # Voids 1 1 1 - Exam GENERAL EXAM: Alert, active, pleasant 67-year-old male, on 2 L, sitting up in bed, comfortable in no apparent distress. HEAD: Normocephalic. EYES: Normal reaction of pupils, equal size. NOSE: Clear with pink turbinates. THROAT: No erythema or exudates. NECK: No masses, no JVD. CHEST: No chest wall deformity. LUNGS: Equal air entry with few scattered rhonchi. CVS: S1 and S2 normal with no audible murmur, regular rhythm. ABDOMEN: No hepatosplenomegaly, normal bowel sounds, no guarding or rigidity. SPINE: No scoliosis or deformity SKIN: No rashes CENTRAL NERVOUS SYSTEM: No focal deficits, tone is normal in all 4 extremities. EXTREMITIES: There is no peripheral edema. No clubbing, no cyanosis. Peripheral pulses are intact. - Labs CBC & Chem 7: 06/19/23 06:40 06/19/23 06:40 Labs: Abnormal Lab Results - Last 24 Hours (Table) 06/19/23 06/19/23 Range/Units 06:40 06:40 WBC 18.43 H (4.50-10.00) X 10*3/uL RBC 3.37 L (4.40-5.60) X 10*6/uL Hgb 9.4 L (13.0-17.0) g/dL Hct 29.7 L (39.6-50.0) % MCHC 31.6 L (32.0-37.0) g/dL RDW 14.6 H (11.5-14.5) % MPV 8.9 L (9.5-12.2) FL NRBC/100 WBC Diff 0.02 H (0.00-0.01) X 10*3/uL BUN/Creatinine Ratio 23.38 H (12.00-20.00) Ratio C-Reactive Protein 2.30 H (0.00-0.80) mg/dL Microbiology - Last 24 Hours (Table) 06/15/23 13:50 Blood Culture - Preliminary Blood 06/15/23 13:05 Blood Culture - Preliminary Blood 06/15/23 17:01 Gram Stain - Final Sputum Sputum Culture - Final Assessment and Plan Assessment: Acute on chronic hypoxemic respiratory failure, secondary to a combination of acute COPD exacerbation and right middle and lower lobe community-acquired pneumonia History of severe oxygen and steroid-dependent COPD History of previous hospitalization for pneumonia History of non-Hodgkin lymphoma History of rheumatoid arthritis Recent former tobacco smoker, quit May 24 Plan: The patient was seen and evaluated Labs and medications reviewed Continued on ceftriaxone and azithromycin Continued on bronchodilators Transition Solu-Medrol to a prednisone taper Titrate down the FiO2 as tolerated Follow-up in our office 1 week postdischarge This patient was seen independently by the pulmonary nurse practitioner addressing pulmonary issues I have personally seen and examined the patient, performed the documentation and the assessment and plan as written. Number of minutes spent on the visit: 22.
[2023-06-20 08:04] LABS: HCT 32.7 % (39.0-53.0); HGB 10.5 gm/dL (13.0-17.5); Hypochromasia Slight; MCH 28.4 pg (25.0-35.0); MCHC 32.2 g/dL (31.0-37.0); MCV 88.4 fL (80.0-100.0); Platelet Count 417 k/uL (150-450); RDW 14.6 % (11.5-15.5); WBC 12.8 k/uL (3.8-10.6)
[2023-06-20 08:27] LABS: African American GFR (CKD) >90 (>60 ml/min/1.73 sqM); Anion Gap 4 mmol/L; Blood Urea Nitrogen 19 mg/dL (9-20); Calcium 8.7 mg/dL (8.4-10.2); Carbon Dioxide 29 mmol/L (22-30); Chloride 104 mmol/L (98-107); Glucose 87 mg/dL (74-99); Non-African American GFR(CKD) >90 (>60 ml/min/1.73 sqM); Potassium 4.9 mmol/L (3.5-5.1); Sodium 137 mmol/L (137-145)
--- NOTE | 2023-06-20 11:11 | P.PN ---
Subjective Progress Note Date: 06/20/23 I am seeing this patient in new consultation today May after he presented with severe symptoms of shortness of breath, productive cough and subjective fevers. Patient is a 67-year-old male who has past medical history significant for severe oxygen and steroid-dependent COPD, non-Hodgkin lymphoma, splenomegaly, and former tobacco smoker. He does have moderate to severe oxygen and steroid-dependent COPD, and follows with Dr. Gonsales in the pulmonary office.. His most recent FEV1 is 49% of predicted. He takes 5 mg of prednisone daily. He is on 2 L/min nasal cannula 08/12. He takes a combination of Symbicort inhaler, albuterol nebs and Ventolin HFA rescue inhaler. He states that he stopped smoking May 24 when he started to feel sick. Patient states that the first week of May, he started develop progressively worsening shortness of breath accompanied with a productive cough and copious amounts of green sputum. He has had subjective fevers and chest congestion. He also more recently developed right-sided chest pain that radiates to his right thoracic level back. This is worse with coughing and deep breathing. He came to the emergency room on June 15 for these symptoms. Patient is currently lying in bed, on 2 L/min nasal cannula, in no acute distress. Chest x-ray demonstrates patchy airspace disease throughout the right mid and lower lung shaffer. CBC on arrival has leukocytosis with a WC count of 22.5, hemoglobin 12.6, hematocrit 36.1, platelets 383. BMP prevention fairly unremarkable. Troponins less than 0.012. NT proBNP 523. Troponin 1.3. Negative for influenza, RSV, COVID. Urine Legionella antigen negative. Patient is currently afebrile. He has been started on a combination of azithromycin and Rocephin. He is hemodynamically stable. Progress note dated June 18, 2023. The patient was seen in consultation yesterday. He presented with complaints of shortness of breath, and was admitted with a diagnosis of COPD exacerbation, and pneumonia. The patient is seen today in room 158, observation unit. The patient remains on azithromycin and Rocephin. Chest x-ray is ordered for tomorrow. His oxygen is at 2 L by nasal cannula, and is getting saline at 75 cc an hour. White count is 21.2, hemoglobin 9.9, hematocrit 31.3, and platelet count 429,000. Sodium 138, potassium 4.6, chlorides 104, CO2 25, BUN 16, creatinine 0.56. Albumin is 2.9. Urinary Legionella antigen is negative. Thus far, microbiology is negative. A chest x-ray is ordered for tomorrow morning. The patient is seen today June 19, 2023 in follow-up on the regular medical floor. He is currently sitting up in bed. Awake and alert in no acute dis tress. Having breakfast. States he is breathing easier today compared to yesterday. He is maintaining O2 saturations in the 90s on 2 L/min per nasal cannula. He is continued on ceftriaxone and azithromycin. Normal saline at 125 MLS per hour. Remains on DuoNeb inhalations, Symbicort, Solu-Medrol. Continued on Lovenox for DVT prophylaxis. White count 18.4. Hemoglobin 9.4. Platelets 410. Sodium 143. Potassium 4.9. Bicarb 28. BUN 19. Creatinine 0.8. Glucose 107. The patient is seen today June 20, 2023 in follow-up on the regular medical floor. He is currently resting comfortably in bed. Awake and alert in no acute distress. He is maintaining good O2 saturations in the 90s on room air. He is continued on Symbicort, DuoNeb inhalations, prednisone taper. Remains on antibi otics. Follow-up chest x-ray revealed improved aeration of the right lung base. Blood cultures revealed no growth. Sputum culture revealed no growth. Objective - Vital Signs Vital signs: Vital Signs Temp 97.5 F L 06/20/23 07:43 Pulse 82 06/20/23 09:27 Resp 17 06/20/23 07:43 BP 118/71 06/20/23 07:43 Pulse Ox 92 L 06/20/23 09:16 FiO2 Intake & Output 06/19/23 06/20/23 06/20/23 18:59 06:59 18:59 Intake Total 490 240 Output Total 475 Balance -475 490 240 Intake: Oral 490 240 Output: Urine 475 Other: # Voids 1 2 - Exam GENERAL EXAM: Alert, 67-year-old male, on 2 L nasal canula, comfortable in no apparent distress. HEAD: Normocephalic. EYES: Normal reaction of pupils, equal size. NOSE: Clear with pink turbinates. THROAT: No erythema or exudates. NECK: No masses, no JVD. CHEST: No chest wall deformity. LUNGS: Equal air entry with few scattered rhonchi. CVS: S1 and S2 normal with no audible murmur, regular rhythm. ABDOMEN: No hepatosplenomegaly, normal bowel sounds, no guarding or rigidity. SPINE: No scoliosis or deformity SKIN: No rashes CENTRAL NERVOUS SYSTEM: No focal deficits, tone is normal in all 4 extremities. EXTREMITIES: There is no peripheral edema. No clubbing, no cyanosis. Peripheral pulses are intact. - Labs CBC & Chem 7: 06/20/23 07:24 06/20/23 07:24 Labs: Abnormal Lab Results - Last 24 Hours (Table) 06/19/23 06/19/23 06/20/23 Range/Units 06:40 06:40 07:24 WBC 18.43 H 12.8 H (4.50-10.00) X 10*3/uL RBC 3.37 L 3.70 L (4.40-5.60) X 10*6/uL Hgb 9.4 L 10.5 L (13.0-17.0) g/dL Hct 29.7 L 32.7 L (39.6-50.0) % MCHC 31.6 L (32.0-37.0) g/dL RDW 14.6 H (11.5-14.5) % MPV 8.9 L (9.5-12.2) FL NRBC/100 WBC Diff 0.02 H (0.00-0.01) X 10*3/uL BUN/Creatinine Ratio 23.38 H (12.00-20.00) Ratio C-Reactive Protein 2.30 H (0.00-0.80) mg/dL Assessment and Plan Assessment: Acute on chronic hypoxemic respiratory failure, secondary to a combination of acute COPD exacerbation and right middle and lower lobe community-acquired pneumonia. Follow-up chest x-ray revealed improvement History of severe oxygen and steroid-dependent COPD History of previous hospitalization for pneumonia History of non-Hodgkin lymphoma History of rheumatoid arthritis Recent former tobacco smoker, quit May 24 Plan: The patient was seen and evaluated Labs and medications reviewed Cleared for discharge from the pulmonary standpoint Complete a course of antibiotics Continue his home pulmonary medications, oxygen Complete a prednisone taper Follow-up in our office 1 week postdischarge This patient was seen independently by the pulmonary nurse practitioner addressing pulmonary issues I have personally seen and examined the patient, performed the documentation and the assessment and plan as written. Number of minutes spent on the visit: 23.
--- NOTE | 2023-06-20 14:02 | P.DS ---
Providers Date of admission: 06/15/23 12:30 Expected date of discharge: 06/20/23 Attending physician: Lucas Padilla Consults: 06/16/23 10:04 Consult Physician Routine Consulting Provider: Lamont Leyva Reason/Comments: Acute exacerbation of COPD Do you want consulting provider notified?: Yes Primary care physician: Stated None Hospital Course: * 67-year-old gentleman with past medical history significant for COPD, chronic hypoxic respiratory failure on 2 L of oxygen non-Hodgkin lymphoma, history of nicotine dependence, rheumatoid arthritis presents to the emergency department with complaints of shortness of breath. Patient has been hospitalized few months ago with similar presentation and was treated for community-acquired pneumonia as well as acute exacerbation of COPD. Presents emergency department with complaints of shortness of breath, cough, increased congestion and increased work of breathing * EMS was called and patient was noted to be significantly hypoxic. * Workup initiated in ER included CBC which showed WBC count of 22.5 hemoglobin 12.6 platelet count of 383, INR of 1.1 * Serum chemistry obtained showed sodium of 130 potassium 3.9 complex at 28 BUN 13 creatinine 0.55 blood glucose 113 * Initial troponin was obtained which was within normal limits N-terminal proBNP 523 * Patient was tested negative for influenza, RSV and COVID * 06/17/2023: Patient seen and evaluated bedside, patient states breathing has improved but does have productive phlegm, on 2 L of oxygen. WBC count elevated, appreciate input from pulmonary medicine. Continue patient on Rocephin and azithromycin to complete total 5-day course of antibiotic continue IV Solu-Medrol * 06/18/2023: Patient seen and evaluated bedside, during my evaluation patient is awake and alert eating lunch, patient's breathing has improved. We will wean down on Solu-Medrol. Continue IV antibiotics. Continue patient on antibiotic and breathing treatment * 06/19/2023: Patient seen and evaluated at bedside, on evaluation patient is awake and alert states breathing has improved, WBC count 18.4 hemoglobin 9.4 platelet count 410 CRP of 2.3, better improved from 14.6 urine Legionella negative * 06/20/2023: Patient seen and evaluated bedside, breathing has improved on baseline oxygen requirements patient to be discharged home. Patient to be given azithromycin for one more day discharge on prednisone PHYSICAL EXAMINATION: GENERAL: The patient is alert and oriented x3, weaned down on oxygen HEENT: Pupils are round and equally reacting to light. EOMI. CARDIOVASCULAR: S1 and S2 present. No murmurs, rubs, or gallops. PULMONARY: Wheezing improved, breath sounds has improved ABDOMEN: Soft, nontender, nondistended, normoactive bowel sounds. No palpable organomegaly. MUSCULOSKELETAL: No joint swelling or deformity. EXTREMITIES: No cyanosis, clubbing, or pedal edema. NEUROLOGICAL: Gross neurological examination did not reveal any focal deficits. SKIN: No rashes. Assessment and plan * Acute exacerbation of COPD * Right lower lobe pneumonia * Acute on chronic hypoxic respiratory failure * Acute hypoxic respiratory failure * History of non-Hodgkin lymphoma * History of rheumatoid arthritis * In regards to acute exacerbation of COPD, continue patient on breathing treatments received IV Solu-Medrol and IV antibiotic, upon discharge continue oral prednisone * In regards to right lower lobe pneumonia chest x-ray reviewed, continue patient on Rocephin depleted and azithromycin one more dose to be given total 5 day course >> continue breathing treatments, IV Solu-Medrol WEANED to oral prednisone, continue Mucinex * In regards to acute hypoxic respiratory failure, weaned down to room air pulmonary medicine consulted Patient Condition at Discharge: Serious Plan - Discharge Summary Discharge Rx Participant: Yes New Discharge Prescriptions: New predniSONE [Deltasone] 40 mg PO DAILY 3 Days #6 tab Azithromycin [Zithromax] 500 mg PO DAILY 1 Days #1 tab guaiFENesin [Mucinex] 600 mg PO Q12HR 5 Days #10 tab Continue Budesonide-Formot 160-4.5 Mcg [Symbicort 160-4.5 Mcg Inhaler] 2 puff INHALATION RT-BID 30 Days #1 each Albuterol Sulfate [Albuterol Sulfate Hfa] 2 puff PO RT-Q6H PRN PRN Reason: Shortness Of Breath Albuterol Nebulized [Ventolin Nebulized] 2.5 mg INHALATION RT-QID PRN PRN Reason: Shortness Of Breath Discharge Medication List Budesonide-Formot 160-4.5 Mcg [Symbicort 160-4.5 Mcg Inhaler] 2 puff INHALATION RT-BID 30 Days #1 each 01/01/23 [Rx] Albuterol Nebulized [Ventolin Nebulized] 2.5 mg INHALATION RT-QID PRN 06/15/23 [History] Albuterol Sulfate [Albuterol Sulfate Hfa] 2 puff PO RT-Q6H PRN 06/15/23 [History] Azithromycin [Zithromax] 500 mg PO DAILY 1 Days #1 tab 06/20/23 [Rx] guaiFENesin [Mucinex] 600 mg PO Q12HR 5 Days #10 tab 06/20/23 [Rx] predniSONE [Deltasone] 40 mg PO DAILY 3 Days #6 tab 06/20/23 [Rx] Follow up Appointment(s)/Referral(s): Rony Dash MD [STAFF PHYSICIAN] - 1 Week (please call office to make an appointment.) None,Stated [Primary Care Provider] - 1-2 days (please call your primary care physician's office to make an appointment.) Patient Instructions/Handouts: COPD (Chronic Obstructive Pulmonary Disease) (DC) Discharge Disposition: HOME SELF-CARE
[2023-06-20 14:37] VITALS: BP 105/68; PULSE 90; RESP 19; TEMP 97.8
--- NOTE | 2023-06-30 09:59 | CDI ---
Documentation Clarification Form Date: 06/26/2023 12:09:00 PM From: Jeniffer Boogie RN, CCDS Email: [email or web address] Admit Date: 06/15/2023 12:30:00 PM Patient Name: Lamont Cleveland Visit Number: [id number] Discharge Date: 06/20/2023 02:50:00 PM ATTENTION: The Clinical Documentation Specialists (CDI) and [facility] Coding Staff appreciate your assistance in clarifying documentation. Please respond to the clarification below the line at the bottom and electronically sign. The CDI & [facility] Coding staff will review the response and follow-up if needed. Please note: Queries are made part of the Legal Health Record. If you have any questions, please contact the author of this message via ITS. Dr. Shakila Lacey The patient had pneumonia, tachycardia and leukocytosis. Based on this information and the findings below, is there an additional diagnosis that is clinically appropriate for this patient? History/Risk Factors: COPD, chronic hypoxic respiratory failure on 2 L of oxygen, non-Hodgkin lymphoma, smoker, RA and recent CAP. Presents to ED with SOB, cough, increased congestion and increased work of breathing. Admitted with pneumonia and acute hypoxic respiratory failure. Clinical Indicators: ED: "Tachycardia. Hypoxia. Community acquired pneumonia." H&P: "EMS was called and patient was noted to be significantly hypoxic." 06/15 CXR: Patchy airspace disease right mid and lower lung. Correlate for possible pneumonia. 06/17 Pulmonary consult: "CBC on arrival has leukocytosis with a white count of 22.5. 06/15-06/20 WBC: 22.5-12.6-19.7-21.2-12.8 06/17 CRP: 14.6 06/19 CRP: 2.30 06/15 Vital signs: Temp 99.2, HR 118, RR 20-22, BP 91/58, pox 83% Treatment: Tylenol 650 mg x1 on 06/15; IV Solumedrol 40mg Q12H 06/16; IV Solumedrol 60mg Q6H 06/17-06/18; IV Solumedrol 60mg BID 06/18; supplemental oxygen 2- 4LNC Antibiotics: IV Rocephin 2gm x1 on 06/15; IV Rocephin 2gm Q24H 06/16-06/19; IV Azithromycin 500mg x1 on 06/15; IV: 0.9 NS @130mL/hr 06/15-06/16; 0.9 NS @75mL/hr 06/17-06/18; 0.9 NS @125mL/hr 06/18- 06/19 Is there an additional diagnosis that is clinically appropriate for this patient? [ y ] Sepsis, present on admission [ ] No additional diagnosis [ ] Other, please specify [ ] Unable to determine SIRS Criteria: 2 or more of the following may indicate SIRS Temperature < 96.8F (36C) or > 101.0F (38.3C) Heart Rate > 90 bpm Respiratory Rate > 20 breaths/min or PaCO2 < 32 mmHg White Blood Cell Count > 12,000 or < 4,000 cells/mm3 or > 10% bands MTDD
== END 2023-06-20 14:50 | disposition home or self-care (01) | DRG 871 ==
LOC: EC 09:55 → 4SSUR 12:30 → 1SOBS 06-16 19:13 → 5NMEDONC 06-18 14:49
PROVIDERS: ADMIT Hospitalist; ATTEND Hospitalist
DX: A41.9 Sepsis, unspecified organism (principal); J18.9 Pneumonia, unspecified organism; J96.21 Acute and chronic respiratory failure with hypoxia; J44.1 Chronic obstructive pulmonary disease with (acute) exacerbation; J44.0 Chronic obstructive pulmonary disease with (acute) lower respiratory infection; Z87.891 Personal history of nicotine dependence; I50.9 Heart failure, unspecified; M06.9 Rheumatoid arthritis, unspecified; Z79.51 Long term (current) use of inhaled steroids; Z79.52 Long term (current) use of systemic steroids; Z79.899 Other long term (current) drug therapy; Z85.6 Personal history of leukemia; Z85.72 Personal history of non-Hodgkin lymphomas; Z11.52 Encounter for screening for COVID-19; Z87.01 Personal history of pneumonia (recurrent); Z99.81 Dependence on supplemental oxygen; Z88.5 Allergy status to narcotic agent; K52.9 Noninfective gastroenteritis and colitis, unspecified
CPT/HCPCS: 36415; 71045; 80048; 80053; 83605; 83735; 83880; 84484; 85025; 85027; 85610; 85730; 86140; 87040; 87070; 87205; 87449; 87636; 93005; 94640; 94667; 94668; 94760; 96361; 96365; 96366; 96367; 96375; 99291

== ENCOUNTER 2023-08-04 11:28 | Emergency (ER) | payer MEDICARE, OTHER ==
--- NOTE | 2023-08-04 12:19 | ED ---
URI HPI - General Chief Complaint: Upper Respiratory Infection Stated Complaint: Sore Throat Time Seen by Provider: 08/04/23 11:40 Source: patient, RN notes reviewed Mode of arrival: ambulatory Limitations: no limitations - History of Present Illness Initial Comments: 67-year-old male with a history of COPD presents emergency department with chief complaint of sore throat, occultly breathing and productive cough over the last 3 days. Patient states that he has been using his as needed oxygen at home more frequently the last few days due to his worsening shortness of breath and difficulty with expiration. he has been experiencing a productive cough, which is out of the normal for him and is having chest pressure on the right-hand side which is worse with each respiratory cycle and with coughing. Denies any known fevers, chest pain, runny nose, abomdinal pain, nausea, vomiting. - Related Data Home Medications Medication Instructions Recorded Confirmed Albuterol Nebulized [Ventolin 2.5 mg INHALATION RT-QID PRN 06/15/23 06/15/23 Nebulized] Albuterol Sulfate [Albuterol 2 puff PO RT-Q6H PRN 06/15/23 06/15/23 Sulfate Hfa] Previous Rx's Medication Instructions Recorded Budesonide-Formot 160-4.5 Mcg 2 puff INHALATION RT-BID 30 Days 01/01/23 [Symbicort 160-4.5 Mcg Inhaler] #1 each Azithromycin [Zithromax] 500 mg PO DAILY 1 Days #1 tab 06/20/23 guaiFENesin [Mucinex] 600 mg PO Q12HR 5 Days #10 tab 06/20/23 predniSONE [Deltasone] 40 mg PO DAILY 3 Days #6 tab 06/20/23 Amoxicillin 500 mg PO Q8H 10 Days #60 capsule 08/04/23 Doxycycline [Vibramycin] 100 mg PO BID #20 capsule 08/04/23 predniSONE [Deltasone] 20 mg PO DAILY #4 tab 08/04/23 Allergies Allergy/AdvReac Type Severity Reaction Status Date / Time morphine Allergy Unknown Verified 08/04/23 11:57 Review of Systems ROS Statement: Those systems with pertinent positive or pertinent negative responses have been documented in the HPI. ROS Other: All systems not noted in ROS Statement are negative. Past Medical History Past Medical History: Asthma, Cancer, COPD, Rheumatoid Arthritis (RA) Additional Past Medical History / Comment(s): Leukemia, SPLEENOMEGLY now normal, heart cath with stent History of Any Multi-Drug Resistant Organisms: C-DIFF Date of last positivie culture/infection: 2013 MDRO Source:: stool Past Surgical History: Orthopedic Surgery Additional Past Surgical History / Comment(s): TESTICULAR SURGERY, LT KNEE TORN LIGAMENT REPAIR, LT CHEEK BONE FX-SX REPAIRED Past Anesthesia/Blood Transfusion Reactions: No Reported Reaction Past Psychological History: No Psychological Hx Reported Smoking Status: Former smoker Past Alcohol Use History: Occasional Past Drug Use History: None Reported - Past Family History Father Additional Family Medical History / Comment(s): AT AGE 51- SUICIDE Mother Additional Family Medical History / Comment(s): MOM AGE 67- BRAIN HEMORRAGE. Mother history of Crohn's disease General Exam Limitations: no limitations General appearance: alert, in no apparent distress Head exam: Present: atraumatic, normocephalic, normal inspection Eye exam: Present: normal appearance, PERRL, EOMI. Absent: scleral icterus, conjunctival injection, periorbital swelling ENT exam: Present: normal exam, mucous membranes moist Neck exam: Present: normal inspection. Absent: tenderness, meningismus, lymphadenopathy Respiratory exam: Present: wheezes (inspiratory and expiratory), decreased breath sounds (right middle and upper lobe), prolonged expiratory. Absent: rhonchi Cardiovascular Exam: Present: regular rate, normal rhythm, normal heart sounds. Absent: systolic murmur, diastolic murmur, rubs, gallop, clicks GI/Abdominal exam: Present: soft, normal bowel sounds. Absent: distended, tenderness, guarding, rebound, rigid Extremities exam: Present: normal inspection, full ROM, normal capillary refill. Absent: tenderness, pedal edema, joint swelling, calf tenderness Back exam: Present: normal inspection Neurological exam: Present: alert, oriented X3, CN II-XII intact Psychiatric exam: Present: normal affect, normal mood Skin exam: Present: warm, dry, intact, normal color. Absent: rash Course Vital Signs 08/04/23 11:52 Temperature 97.7 F Pulse Rate 94 Respiratory 20 Rate Blood Pressure 112/72 O2 Sat by Pulse 100 Oximetry Medical Decision Making - Medical Decision Making Was pt. sent in by a medical professional or institution (, PA, CONVEYANCER, urgent care, hospital, or fdc...) When possible be specific @ -No Did you speak to anyone other than the patient for history (EMS, parent, family, police, friend...)? What history was obtained from this source @ -No Did you review nursing and triage notes (agree or disagree)? Why? @ -I reviewed and agree with nursing and triage notes Were old charts reviewed (outside hosp., previous admission, EMS record, old EKG, old radiological studies, urgent care reports/EKG's, fdc records)? Report findings @ -No old charts were reviewed Differential Diagnosis (chest pain, altered mental status, abdominal pain women, abdominal pain men, vaginal bleeding, weakness, fever, dyspnea, syncope, headache, dizziness, GI bleed, back pain, seizure, CVA, palpatations, mental health, musculoskeletal)? @ -COVID 19, RSV, influenza, pneumonia, acute bronchitis, URI, COPD exacerbation, this list is not all inclusive EKG interpreted by me (3pts min.). @ -None X-rays interpreted by me (1pt min.). @ -chest xray no signs of acute focal consolidation, no acute cardiac process CT interpreted by me (1pt min.). @ -None done U/S interpreted by me (1pt. min.). @ -None done What testing was considered but not performed or refused? (CT, X-rays, U/S, labs)? Why? @ -None What meds were considered but not given or refused? Why? @ -None Did you discuss the management of the patient with other professionals (professionals i.e. , PA, CONVEYANCER, lab, RT, psych nurse, social media assistant, assembler chassis, teacher, ship officer, merchandise team manager)? Give summary @ -No Was smoking cessation discussed for >3mins.? @ -No Was critical care preformed (if so, how long)? @ -No Were there social determinants of health that impacted care today? How? (Homelessness, low income, unemployed, alcoholism, drug addiction, transportation, low edu. Level, literacy, decrease access to med. care, detention, rehab)? @ -No Was there de-escalation of care discussed even if they declined (Discuss DNR or withdrawal of care, Hospice)? DNR status @ -No What co-morbidities impacted this encounter? (DM, HTN, Smoking, COPD, CAD, Cancer, CVA, ARF, Chemo, Hep., AIDS, mental health diagnosis, sleep apnea, morbid obesity)? @ -COPD, HTN, smoking Was patient admitted / discharged? Hospital course, mention meds given and rou te, prescriptions, significant lab abnormalities, going to OR and other pertinent info. @ -67-year-old male with chief complaint of difficulty with expiration and sore throat. The patient's history of COPD and symptoms of worsening productive cough and difficulty with expiration, chest x-ray ordered. Patient given 1 g of Tylenol for symptomatic relief in the emergency department and IM dose of Solu- Medrol. chest xray remarkable for interstitial pneumonitis vs bronchitis. Will be treated acute COPD exacerbation. Patient will be prescribed doxycycline and amoxicillin and 4-day course of steroids. Patient to follow-up with primary care provider. States that he does have at home breathing treatments, advised to continue at home for symptomatic relief. Case discussed with attending Dr. Baxter who is agreeable with treatment and plan. Undiagnosed new problem with uncertain prognosis? @ -No Drug Therapy requiring intensive monitoring for toxicity (Heparin, Nitro, Insulin, Cardizem)? @ -No Were any procedures done? @ -No Diagnosis/symptom? @ -Cough, shortness of breath, sore throat, COPD exacerbation Acute, or Chronic, or Acute on Chronic? @ -Acute Uncomplicated (without systemic symptoms) or Complicated (systemic symptoms)? @ -Complicated Side effects of treatment? @ -No Exacerbation, Progression, or Severe Exacerbation? @ -exacerbation of COPD Poses a threat to life or bodily function? How? (Chest pain, USA, ID, pneumonia, PE, COPD, DKA, ARF, appy, cholecystitis, CVA, Diverticulitis, Homicidal, Suicidal, threat to staff... and all critical care pts) @ -No - Lab Data Lab Results 08/04/23 Range/Units 12:18 Influenza Type A (PCR) Not Detected (Not Detectd) Influenza Type B (PCR) Not Detected (Not Detectd) RSV (PCR) Not Detected (Not Detectd) SARS-CoV-2 (PCR) Not Detected (Not Detectd) Disposition Clinical Impression: Pneumonitis, Acute exacerbation of chronic obstructive pulmonary disease Narrative: Return to the emergency department if symptoms do not improve or worsen. Please complete all prescribed medications to full prescription. Disposition: HOME SELF-CARE Condition: Good Prescriptions: Amoxicillin 500 mg PO Q8H 10 Days #60 capsule predniSONE [Deltasone] 20 mg PO DAILY #4 tab Doxycycline [Vibramycin] 100 mg PO BID #20 capsule Is patient prescribed a controlled substance at d/c from ED?: No Referrals: None,Stated [Primary Care Provider] - 1-2 days Time of Disposition: 13:10
[2023-08-04] MEDS: ACETAMINOPHEN TAB 500 MG TAB PO STA (12:25)
--- NOTE | 2023-08-04 12:28 | XR ---
EXAMINATION TYPE: XR chest 2V DATE OF EXAM: 08/04/2023 COMPARISON: 06/19/2023 TECHNIQUE: PA and lateral views submitted. HISTORY: Shortness of breath FINDINGS: The lungs are clear and there is no pneumothorax, pleural effusion, or focal pneumonia. Heart size normal and no overt failure. Osseous structures demonstrate hypertrophic and degenerative changes of the spine. Atherosclerotic change aorta. Diffuse osteopenia. Underlying COPD. There is perihilar inte rstitial changes. IMPRESSION: 1. COPD correlate for interstitial pneumonitis or bronchitis.
[2023-08-04] MEDS: methylPREDNISolone SOD SUCCI 125 MG/2 ML VIAL IM ONE (12:29)
[2023-08-04 13:42] VITALS: BP 123/69; PULSE 77; RESP 18; TEMP 97.6
== END 2023-08-04 13:41 | disposition home or self-care (01) ==
LOC: EC 11:28
DX: J44.1 Chronic obstructive pulmonary disease with (acute) exacerbation (principal); J98.4 Other disorders of lung; I10 Essential (primary) hypertension; Z79.51 Long term (current) use of inhaled steroids; Z88.6 Allergy status to analgesic agent; Z87.891 Personal history of nicotine dependence
CPT/HCPCS: 87636; 71046; 99283; 96372; J2930

== ENCOUNTER → 2023-10-22 | Outpatient (CLI) | payer MEDICARE, OTHER ==
--- NOTE | 2023-10-22 12:03 | CT ---
EXAMINATION TYPE: CT brain wo con DATE OF EXAM: 10/22/2023 COMPARISON: None HISTORY: Pain at back of head. history of multiple head injuries CT DLP: 1023.2 mGycm Automated exposure control for dose reduction was used. FINDINGS: The ventricles, basal cisterns and sulci over convexities are within normal limits and there is no ma ss effect or shift of midline structures. There is marked decreased density in the periventricular white matter consistent with chronic ischemi c white matter demyelination. There is no acute intra or extra-axial hemorrhage. The posterior fossa including the brainstem, fourth ventricle and cerebellopontine angles are grossly normal. The intraorbital contents appear normal symmetric. Visualized paranasal sinuses are well aerated. There is moderate fluid in the right mastoid air cells and middle ear cavity. There is mild mucosal t hickening in the right external auditory canal as well. The calvarium is intact. IMPRESSION: 1. No acute bleed or mass effect. 2. 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 Inflammatory changes in the right mastoid air cells and middle ear cavities described above. 4. Intact calvarium:
== END | disposition home or self-care (01) ==
LOC: RADCTMAIN 07:03
PROVIDERS: ATTEND Internal Medicine
DX: I67.82 Cerebral ischemia (principal); S09.90XA Unspecified injury of head, initial encounter
CPT/HCPCS: 70450

== ENCOUNTER 2023-11-12 20:32 | Emergency (ER) | payer MEDICARE, OTHER ==
[2023-11-12 21:28] LABS: Basophils # (A) 0.1 k/uL (0-0.2); Basophils % (A) 1 %; Eosinophils # (A) 0.2 k/uL (0-0.7); Eosinophils % (A) 2 %; HCT 38.1 % (39.0-53.0); HGB 12.6 gm/dL (13.0-17.5); Lymphocytes # (A) 1.1 k/uL (1.0-4.8); Lymphocytes % (A) 11 %; MCHC 33.2 g/dL (31.0-37.0); MCV 87.4 fL (80.0-100.0); Monocytes # (A) 0.4 k/uL (0-1.0); Monocytes % (A) 4 %; Neutrophils # (A) 8.1 k/uL (1.3-7.7); Neutrophils % (A) 82 %; Platelet Count 185 k/uL (150-450); RBC 4.36 m/uL (4.30-5.90); RDW 14.2 % (11.5-15.5); WBC 9.9 k/uL (3.8-10.6)
[2023-11-12 21:54] LABS: INR 0.9 (<1.2); Partial Thromboplastin Time 24.7 sec (22.0-30.0); Prothrombin Time 9.9 sec (10.0-12.5)
[2023-11-12 22:25] LABS: ALT 18 U/L (4-49); AST 21 U/L (17-59); African American GFR (CKD) >90 (>60 ml/min/1.73 sqM); Albumin 3.5 g/dL (3.5-5.0); Alkaline Phosphatase 130 U/L (38-126); Anion Gap 2 mmol/L; Blood Urea Nitrogen 9 mg/dL (9-20); Carbon Dioxide 27 mmol/L (22-30); Chloride 109 mmol/L (98-107); Glucose 102 mg/dL (74-99); Non-African American GFR(CKD) >90 (>60 ml/min/1.73 sqM); Potassium 4.5 mmol/L (3.5-5.1); Sodium 138 mmol/L (137-145); Total Bilirubin 0.3 mg/dL (0.2-1.3); Total Protein 5.5 g/dL (6.3-8.2)
--- NOTE | 2023-11-12 22:25 | XR ---
EXAMINATION TYPE: XR chest 2V DATE OF EXAM: 11/12/2023 COMPARISON: Chest x-ray August 04, 2023 HISTORY: Difficulty in breathing. TECHNIQUE: Frontal and lateral views of the chest are obtained. FINDINGS: There is some chronic parenchymal changes bilaterally without suspicious focal air space o pacity, pleural effusion, or pneumothorax seen. The cardiac silhouette size remains within normal li mits. The osseous structures are intact. IMPRESSION: No acute cardiopulmonary process. No significant change from prior
[2023-11-12] MEDS: KETOROLAC 15 MG/ML 1 ML VIAL IVP STA (22:29)
[2023-11-12] MEDS: methylPREDNISolone SOD SUCCI 125 MG/2 ML VIAL IV STA (22:30)
[2023-11-12] MEDS: SODIUM CHLORIDE 0.9% 1,000 ML IV STA (22:31)
[2023-11-12] MEDS: IPRATROPIUM-ALBUTEROL 3 ML NEB INHALATION STA (23:33)
[2023-11-12 23:49] VITALS: RESP 18
--- NOTE | 2023-11-13 00:22 | ED ---
General Adult HPI - General Chief complaint: Shortness of Breath Stated complaint: CINTIA Time Seen by Provider: 11/12/23 22:00 Source: patient, RN notes reviewed, old records reviewed Mode of arrival: ambulatory Limitations: no limitations - History of Present Illness Initial comments: Patient is a 67-year-old male who is chronically on nasal cannula oxygen 2 and half to 3 L who presents emergency department complaining of chest tightness, shortness of breath. States this usually happens when his COPD flares up. Did take a breathing treatment at home which did improve his symptoms but presents for further evaluation at this time. Has noticed a increased productive cough as well. Vital signs currently within acceptable limits. He has no acute complaints at this time and is resting comfortably. Does endorse having bodyaches and is asking for some pain medication for that. Presents for further evaluation.Workup started in triage. I evaluated the patient when he was placed in room.States symptoms have been ongoing for the last week. Worse today. - Related Data Home Medications Medication Instructions Recorded Confirmed Albuterol Nebulized [Ventolin 2.5 mg INHALATION RT-QID PRN 06/15/23 06/15/23 Nebulized] Albuterol Sulfate [Albuterol 2 puff PO RT-Q6H PRN 06/15/23 06/15/23 Sulfate Hfa] Previous Rx's Medication Instructions Recorded Budesonide-Formot 160-4.5 Mcg 2 puff INHALATION RT-BID 30 Days 01/01/23 [Symbicort 160-4.5 Mcg Inhaler] #1 each Azithromycin [Zithromax] 500 mg PO DAILY 1 Days #1 tab 06/20/23 guaiFENesin [Mucinex] 600 mg PO Q12HR 5 Days #10 tab 06/20/23 predniSONE [Deltasone] 40 mg PO DAILY 3 Days #6 tab 06/20/23 Amoxicillin 500 mg PO Q8H 10 Days #60 capsule 08/04/23 Doxycycline [Vibramycin] 100 mg PO BID #20 capsule 08/04/23 predniSONE [Deltasone] 20 mg PO DAILY #4 tab 08/04/23 Albuterol Inhaler [Ventolin Hfa 2 puff INHALATION TID #8 gm 11/13/23 Inhaler] Azithromycin [Zithromax] 250 mg PO DAILY 4 Days #4 tab 11/13/23 predniSONE [Deltasone] 40 mg PO DAILY 5 Days #10 tab 11/13/23 Allergies Allergy/AdvReac Type Severity Reaction Status Date / Time morphine Allergy Unknown Verified 11/12/23 20:53 Review of Systems ROS Statement: Those systems with pertinent positive or pertinent negative responses have been documented in the HPI. Review of Systems: CONST: Denies fever EYES: Denies blurry vision ENT: Denies nasal congestion C/V: Denies Chest pain RESP: Endorses shortness of breath GI: Denies abdominal pain : Denies dysuria SKIN: Denies rash. MSK: Endorses body aches NEURO: Denies headache ROS Other: All systems not noted in ROS Statement are negative. Past Medical History Past Medical History: Asthma, Cancer, COPD, Rheumatoid Arthritis (RA) Additional Past Medical History / Comment(s): Leukemia, SPLEENOMEGLY now normal, heart cath with stent History of Any Multi-Drug Resistant Organisms: C-DIFF Date of last positivie culture/infection: 2013 MDRO Source:: stool Past Surgical History: Heart Catheterization With Stent, Orthopedic Surgery Additional Past Surgical History / Comment(s): TESTICULAR SURGERY, LT KNEE TORN LIGAMENT REPAIR, LT CHEEK BONE FX-SX REPAIRED Past Anesthesia/Blood Transfusion Reactions: No Reported Reaction Past Psychological History: No Psychological Hx Reported Smoking Status: Former smoker Past Alcohol Use History: None Reported Past Drug Use History: None Reported - Past Family History Father Additional Family Medical History / Comment(s): AT AGE 51- SUICIDE Mother Additional Family Medical History / Comment(s): MOM AGE 67- BRAIN HEMORRAGE. Mother history of Crohn's disease General Exam - General Exam Comments Initial Comments: General: Appears in no acute distress. HEAD: Normal with no signs of head trauma. EYES: PERRLA, EOMI, conjunctiva normal, no discharge. ENT: Hearing grossly intact, normal oropharynx. RESPIRATORY: Bilateral end expiratory wheezing. No significant hypoxia on baseline 3 L nasal cannula. C/V: Regular rate and rhythm. S1 and S2 auscultated, no edema, peripheral pulses 2+ and intact throughout ABD: Abd is soft, nontender, nondistended EXT: Normal range of motion, no obvious deformity SKIN: No rashes or lesions observed on exposed skin. NEURO: Alert and oriented x 4. Limitations: no limitations Course Vital Signs 11/12/23 11/12/23 11/12/23 20:53 22:06 22:57 Temperature 98 F 98 F Pulse Rate 78 82 Respiratory 18 18 20 Rate Blood Pressure 125/74 141/86 O2 Sat by Pulse 99 99 Oximetry 11/12/23 11/12/23 11/12/23 23:37 23:48 23:49 Temperature Pulse Rate 101 H 92 88 Respiratory 18 Rate Blood Pressure 131/83 O2 Sat by Pulse 98 Oximetry 11/13/23 00:43 Temperature 98.7 F Pulse Rate 86 Respiratory 18 Rate Blood Pressure 130/82 O2 Sat by Pulse 100 Oximetry Medical Decision Making - Medical Decision Making Was pt. sent in by a medical professional or institution (, PA, FIBER WORKER, urgent care, hospital, or fci...) When possible be specific @ -No Did you speak to anyone other than the patient for history (EMS, parent, family, police, friend...)? What history was obtained from this source @ -No Did you review nursing and triage notes (agree or disagree)? Why? @ -I reviewed and agree with nursing and triage notes Were old charts reviewed (outside hosp., previous admission, EMS record, old EKG, old radiological studies, urgent care reports/EKG's, fci records)? Report findings @ -Old charts reviewed including EKG from May 2023 which shows no obvious acute changes when compared with today's EKG. Differential Diagnosis (chest pain, altered mental status, abdominal pain women, abdominal pain men, vaginal bleeding, weakness, fever, dyspnea, syncope, headache, dizziness, GI bleed, back pain, seizure, CVA, palpatations, mental health, musculoskeletal)? @ -Differential Dyspnea: Coronary syndrome, arrhythmia, tamponade, asthma, COPD, pulmonary embolism, pneumonia, pneumothorax, pulmonary effusion, anaphylaxis, diabetic ketoacidosis, flailed chest, pulmonary contusion, diaphragmatic rupture, anemia, neuromuscular, this is not meant to be an all-inclusive list. EKG interpreted by me (3pts min.). @ -As above X-rays interpreted by me (1pt min.). @ -Chest x-ray reveals no obvious acute cardiopulmonary process. CT interpreted by me (1pt min.). @ -None done U/S interpreted by me (1pt. min.). @ -None done What testing was considered but not performed or refused? (CT, X-rays, U/S, labs)? Why? @ -None What meds were considered but not given or refused? Why? @ -None Did you discuss the management of the patient with other professionals (professionals i.e. , PA, FIBER WORKER, lab, RT, psych nurse, rn social work, ware carrier, teacher, aeronautical engineering officer, showcase trimmer)? Give summary @ -No Was smoking cessation discussed for >3mins.? @ -No Was critical care preformed (if so, how long)? @ -No Were there social determinants of health that impacted care today? How? (Homelessness, low income, unemployed, alcoholism, drug addiction, transportation, low edu. Level, literacy, decrease access to med. care, senior care, rehab)? @ -No Was there de-escalation of care discussed even if they declined (Discuss DNR or withdrawal of care, Hospice)? DNR status @ -No What co-morbidities impacted this encounter? (DM, HTN, Smoking, COPD, CAD, Cancer, CVA, ARF, Chemo, Hep., AIDS, mental health diagnosis, sleep apnea, morbid obesity)? @ -COPD, chronic hypoxic respiratory failure Was patient admitted / discharged? Hospital course, mention meds given and route, prescriptions, significant lab abnormalities, going to OR and other p ertinent info. @ -Patient presents with what appears to be COPD exacerbation. Workup already started in triage. We will obtain cardiac workup, chest x-ray, EKG. Vital signs within acceptable limits. He will be symptomatically treated with IV steroids, fluids, Toradol as well as a breathing treatment. He was in agreement this plan. EKG shows no signs of acute ischemia. Patient laboratory studies unremarkable including undetectable troponin. Viral swabs negative. Chest x-ray shows no obvious acute infectious process. On reevaluation, patient is feeling improved. No respiratory distress. Wheezing is improved as well. I discussed with the patient I would like to discharge him home at this time. Diagnosis COPD. He will be discharged home with azithromycin, prednisone, albuterol inhaler. He was in agreement this plan. Strict return precautions discussed. I instructed the patient to follow up with their PCP in the next 1-3 days. I explained that the patient should return to the emergency department if they experience any worsening symptoms. Strict return precautions were discussed with the patient. The patient expressed understanding of these instructions. I answered all questions that the patient had. The patient was discharged home in good condition with their prescriptions and follow up information. Undiagnosed new problem with uncertain prognosis? @ -No Drug Therapy requiring intensive monitoring for toxicity (Heparin, Nitro, Insulin, Cardizem)? @ -No Were any procedures done? @ -No Diagnosis/symptom? @ -COPD Acute, or Chronic, or Acute on Chronic? @ -Acute on chronic Uncomplicated (without systemic symptoms) or Complicated (systemic symptoms)? @ -Complicated Side effects of treatment? @ -No Exacerbation, Progression, or Severe Exacerbation? @ -Exacerbation Poses a threat to life or bodily function? How? (Chest pain, USA, NM, pneumonia, PE, COPD, DKA, ARF, appy, cholecystitis, CVA, Diverticulitis, Homicidal, Suicidal, threat to staff... and all critical care pts) @ -Unlikely at this time. - Lab Data Result diagrams: 11/12/23 21:10 11/12/23 21:45 Lab Results 11/12/23 11/12/23 11/12/23 Range/Units 21:10 21:10 21:45 WBC 9.9 (3.8-10.6) k/uL RBC 4.36 (4.30-5.90) m/uL Hgb 12.6 L (13.0-17.5) gm/dL Hct 38.1 L (39.0-53.0) % MCV 87.4 (80.0-100.0) fL MCH 29.0 (25.0-35.0) pg MCHC 33.2 (31.0-37.0) g/dL RDW 14.2 (11.5-15.5) % Plt Count 185 (150-450) k/uL MPV 8.0 Neutrophils % 82 % Lymphocytes % 11 % Monocytes % 4 % Eosinophils % 2 % Basophils % 1 % Neutrophils # 8.1 H (1.3-7.7) k/uL Lymphocytes # 1.1 (1.0-4.8) k/uL Monocytes # 0.4 (0-1.0) k/uL Eosinophils # 0.2 (0-0.7) k/uL Basophils # 0.1 (0-0.2) k/uL PT 9.9 L (10.0-12.5) sec INR 0.9 (<1.2) APTT 24.7 (22.0-30.0) sec Sodium (137-145) mmol/L Potassium (3.5-5.1) mmol/L Chloride (98-107) mmol/L Carbon Dioxide (22-30) mmol/L Anion Gap mmol/L BUN (9-20) mg/dL Creatinine (0.66-1.25) mg/dL Est GFR (CKD-EPI)AfAm (>60 ml/min/1.73 sqM) Est GFR (CKD-EPI)NonAf (>60 ml/min/1.73 sqM) Glucose (74-99) mg/dL Calcium (8.4-10.2) mg/dL Total Bilirubin (0.2-1.3) mg/dL AST (17-59) U/L ALT (4-49) U/L Alkaline Phosphatase (38-126) U/L Troponin I <0.012 (0.000-0.034) ng/mL Total Protein (6.3-8.2) g/dL Albumin (3.5-5.0) g/dL Influenza Type A (PCR) (Not Detectd) Influenza Type B (PCR) (Not Detectd) RSV (PCR) (Not Detectd) SARS-CoV-2 (PCR) (Not Detectd) 11/12/23 11/12/23 Range/Units 21:45 22:26 WBC (3.8-10.6) k/uL RBC (4.30-5.90) m/uL Hgb (13.0-17.5) gm/dL Hct (39.0-53.0) % MCV (80.0-100.0) fL MCH (25.0-35.0) pg MCHC (31.0-37.0) g/dL RDW (11.5-15.5) % Plt Count (150-450) k/uL MPV Neutrophils % % Lymphocytes % % Monocytes % % Eosinophils % % Basophils % % Neutrophils # (1.3-7.7) k/uL Lymphocytes # (1.0-4.8) k/uL Monocytes # (0-1.0) k/uL Eosinophils # (0-0.7) k/uL Basophils # (0-0.2) k/uL PT (10.0-12.5) sec INR (<1.2) APTT (22.0-30.0) sec Sodium 138 (137-145) mmol/L Potassium 4.5 (3.5-5.1) mmol/L Chloride 109 H (98-107) mmol/L Carbon Dioxide 27 (22-30) mmol/L Anion Gap 2 mmol/L BUN 9 (9-20) mg/dL Creatinine 0.60 L (0.66-1.25) mg/dL Est GFR (CKD-EPI)AfAm >90 (>60 ml/min/1.73 sqM) Est GFR (CKD-EPI)NonAf >90 (>60 ml/min/1.73 sqM) Glucose 102 H (74-99) mg/dL Calcium 9.0 (8.4-10.2) mg/dL Total Bilirubin 0.3 (0.2-1.3) mg/dL AST 21 (17-59) U/L ALT 18 (4-49) U/L Alkaline Phosphatase 130 H (38-126) U/L Troponin I (0.000-0.034) ng/mL Total Protein 5.5 L (6.3-8.2) g/dL Albumin 3.5 (3.5-5.0) g/dL Influenza Type A (PCR) Not Detected (Not Detectd) Influenza Type B (PCR) Not Detected (Not Detectd) RSV (PCR) Not Detected (Not Detectd) SARS-CoV-2 (PCR) Not Detected (Not Detectd) - EKG Data -: EKG Interpreted by Me EKG Comments: 12-lead Electrocardiogram Interpretation Note EKG was reviewed and interpreted by myself. 12-lead ECG performed at 2058 is interpreted by me as revealing normal sinus rhythm at a rate of 79 beats per mi nute. [place] is normal. MS interval is 148 ms, QRS duration is 83 ms, QTc is 397 ms.. There were no ST or T wave abnormalities to suggest myocardial ischemia or injury. R wave progression across the precordium was satisfactory. By my interpretation this EKG is non-diagnostic for acute ischemia. Disposition Clinical Impression: COPD (chronic obstructive pulmonary disease) Disposition: HOME SELF-CARE Condition: Good Instructions (If sedation given, give patient instructions): COPD (Chronic Obstructive Pulmonary Disease) (ED) Prescriptions: predniSONE [Deltasone] 40 mg PO DAILY 5 Days #10 tab Albuterol Inhaler [Ventolin Hfa Inhaler] 2 puff INHALATION TID #8 gm Azithromycin [Zithromax] 250 mg PO DAILY 4 Days #4 tab Is patient prescribed a controlled substance at d/c from ED?: No Referrals: Linnette Claros MD [Primary Care Provider] - 1-2 days Time of Disposition: 00:15
[2023-11-13] MEDS: AZITHROMYCIN 500 MG TAB PO STA (00:40)
[2023-11-13 00:45] VITALS: BP 130/82; PULSE 86; TEMP 98.7
== END 2023-11-13 00:45 | disposition home or self-care (01) ==
LOC: EC 20:32
DX: J44.1 Chronic obstructive pulmonary disease with (acute) exacerbation (principal); J96.11 Chronic respiratory failure with hypoxia; Z79.899 Other long term (current) drug therapy; Z88.5 Allergy status to narcotic agent; Z87.891 Personal history of nicotine dependence
CPT/HCPCS: 36415; 94640; 93005; 80053; 84484; 85025; 85610; 85730; 87636; 71046; 99285; 96374; 96375; 96361; J1885; J2919

== ENCOUNTER 2023-11-30 11:35 | Emergency (ER) | payer MEDICARE, OTHER ==
[2023-11-30 11:40] VITALS: TEMP 97.3
--- NOTE | 2023-11-30 12:12 | ED ---
SOB HPI - General Chief Complaint: Shortness of Breath Stated Complaint: CINTIA Time Seen by Provider: 11/30/23 12:05 Source: patient, RN notes reviewed, old records reviewed Mode of arrival: wheelchair Limitations: no limitations - History of Present Illness Initial Comments: This is a 67-year-old male who presents for evaluation in regards to shortness o f breath. Increasing shortness of breath with COPD type symptoms here in the emergency room and increased cough and congestion without chest pain. No fevers symptoms started today and that became progressively worse. MD Complaint: shortness of breath, cough, chest pain, anxiety -: days(s) Radiation: back Severity: moderate Severity scale (1-10): 4 Quality: throbbing Consistency: constant Improves With: nothing Worsens With: nothing Known History Of: COPD, asthma Context: recent URI, recent illness Associated Symptoms: denies other symptoms Treatments Prior to Arrival: none - Related Data Home Medications Medication Instructions Recorded Confirmed Albuterol Nebulized [Ventolin 2.5 mg INHALATION RT-QID PRN 06/15/23 06/15/23 Nebulized] Albuterol Sulfate [Albuterol 2 puff PO RT-Q6H PRN 06/15/23 06/15/23 Sulfate Hfa] Previous Rx's Medication Instructions Recorded Budesonide-Formot 160-4.5 Mcg 2 puff INHALATION RT-BID 30 Days 01/01/23 [Symbicort 160-4.5 Mcg Inhaler] #1 each Azithromycin [Zithromax] 500 mg PO DAILY 1 Days #1 tab 06/20/23 guaiFENesin [Mucinex] 600 mg PO Q12HR 5 Days #10 tab 06/20/23 predniSONE [Deltasone] 40 mg PO DAILY 3 Days #6 tab 06/20/23 Amoxicillin 500 mg PO Q8H 10 Days #60 capsule 08/04/23 Doxycycline [Vibramycin] 100 mg PO BID #20 capsule 08/04/23 predniSONE [Deltasone] 20 mg PO DAILY #4 tab 08/04/23 Albuterol Inhaler [Ventolin Hfa 2 puff INHALATION TID #8 gm 11/13/23 Inhaler] Azithromycin [Zithromax] 250 mg PO DAILY 4 Days #4 tab 11/13/23 predniSONE [Deltasone] 40 mg PO DAILY 5 Days #10 tab 11/13/23 Allergies Allergy/AdvReac Type Severity Reaction Status Date / Time morphine Allergy Unknown Verified 11/30/23 11:39 Review of Systems ROS Statement: Those systems with pertinent positive or pertinent negative responses have been documented in the HPI. ROS Other: All systems not noted in ROS Statement are negative. Past Medical History Past Medical History: Asthma, Cancer, COPD, Rheumatoid Arthritis (RA) Additional Past Medical History / Comment(s): Leukemia, SPLEENOMEGLY now normal, heart cath with stent History of Any Multi-Drug Resistant Organisms: C-DIFF Date of last positivie culture/infection: 2013 MDRO Source:: stool Past Surgical History: Heart Catheterization With Stent, Orthopedic Surgery Additional Past Surgical History / Comment(s): TESTICULAR SURGERY, LT KNEE TORN LIGAMENT REPAIR, LT CHEEK BONE FX-SX REPAIRED Past Anesthesia/Blood Transfusion Reactions: No Reported Reaction Past Psychological History: No Psychological Hx Reported Smoking Status: Former smoker Past Alcohol Use History: None Reported Past Drug Use History: None Reported - Past Family History Father Additional Family Medical History / Comment(s): AT AGE 51- SUICIDE Mother Additional Family Medical History / Comment(s): MOM AGE 67- BRAIN HEMORRAGE. Mother history of Crohn's disease General Exam Limitations: no limitations General appearance: alert, in no apparent distress Head exam: Present: atraumatic, normocephalic, normal inspection Eye exam: Present: normal appearance, PERRL, EOMI. Absent: scleral icterus, conjunctival injection, periorbital swelling ENT exam: Present: normal exam, mucous membranes moist Neck exam: Present: normal inspection. Absent: tenderness, meningismus, lymphadenopathy Respiratory exam: Present: normal lung sounds bilaterally. Absent: respiratory distress, wheezes, rales, rhonchi, stridor Cardiovascular Exam: Present: regular rate, normal rhythm, normal heart sounds. Absent: systolic murmur, diastolic murmur, rubs, gallop, clicks GI/Abdominal exam: Present: soft, normal bowel sounds. Absent: distended, tenderness, guarding, rebound, rigid Extremities exam: Present: normal inspection, full ROM, normal capillary refill. Absent: tenderness, pedal edema, joint swelling, calf tenderness Back exam: Present: normal inspection Neurological exam: Present: alert, oriented X3, CN II-XII intact Psychiatric exam: Present: normal affect, normal mood Skin exam: Present: warm, dry, intact, normal color. Absent: rash Course Vital Signs 11/30/23 11/30/23 11/30/23 11:37 12:05 12:36 Temperature 97.3 F L Pulse Rate 74 74 Respiratory 20 18 Rate Blood Pressure 138/76 O2 Sat by Pulse 100 Oximetry 11/30/23 11/30/23 12:49 13:00 Temperature Pulse Rate 61 80 Respiratory 18 Rate Blood Pressure 141/78 O2 Sat by Pulse 95 Oximetry - Reevaluation(s) Reevaluation #1: 11/30/23 12:42 Medical records reviewed Reevaluation #2: 11/30/23 12:42 Patient symptoms improved Reevaluation #3: 11/30/23 12:42 Patient informed of results and questions answered Reevaluation #4: Was pt. sent in by a medical professional or institution (SHIRA Young, ALLEY CLEANER, urgent care, hospital, or group home...) When possible be specific @ -no Did you speak to anyone other than the patient for history (EMS, parent, family, police, friend...)? What history was obtained from this source @ -no Did you review nursing and triage notes (agree or disagree)? Why? @ -agree Are old charts reviewed (outside hosp., previous admission, EMS record, old EKG, old radiological studies, urgent care reports/EKG's, group home records)? Report findings @ -yes Differential Diagnosis (chest pain, altered mental status, abdominal pain women, abdominal pain men, vaginal bleeding, weakness, fever, dyspnea, syncope, headache, dizziness, GI bleed, back pain, seizure, CVA, palpatations, mental health, musculoskeletal)? @ -prior EKG interpreted by me (3pts min.). @ -yes X-rays interpreted by me (1pt min.). @ -yes negative for acute disease CT interpreted by me (1pt min.). @ -no U/S interpreted by me (1pt. min.). @ -no What testing was considered but not performed or refused? (CT, X-rays, U/S, labs)? Why? @ -none What meds were considered but not given or refused? Why? @ -none Did you discuss the management of the patient with other professionals (professionals i.e. , SHIRA, ALLEY CLEANER, lab, RT, psych nurse, social worker assistant, truck railroad and bus motor mechanic, teacher, deportation officer, top case assembler)? Give summary @ -no Was smoking cessation discussed for >3mins.? @ -no Was critical care preformed (if so, how long)? @ -no Were there social determinants of health that impacted care today? How? (Homelessness, low income, unemployed, alcoholism, drug addiction, transportation, low edu. Level, literacy, decrease access to med. care, mcc, re hab)? @ -none Was there de-escalation of care discussed even if they declined (Discuss DNR or withdrawal of care, Hospice)? DNR status @ -no What co-morbidities impacted this encounter? (DM, HTN, Smoking, COPD, CAD, Cancer, CVA, ARF, Chemo, Hep., AIDS, mental health diagnosis, sleep apnea, morbid obesity)? @ -none Was patient admitted / discharged? Hospital course, mention meds given and route, prescriptions, significant lab abnormalities, going to OR and other pertinent info. @ - Undiagnosed new problem with uncertain prognosis? @ -no Drug Therapy requiring intensive monitoring for toxicity (Heparin, Nitro, Insulin, Cardizem)? @ -no Were any procedures done? @ -no Diagnosis/symptom? @ - Acute, or Chronic, or Acute on Chronic? @ -Acute Uncomplicated (without systemic symptoms) or Complicated (systemic symptoms)? @ -Complicated Side effects of treatment? @ -no Exacerbation, Progression, or Severe Exacerbation? @ -exacerbation Poses a threat to life or bodily function? How? (Chest pain, USA, CT, pneumonia, PE, COPD, DKA, ARF, appy, cholecystitis, CVA, Diverticulitis, Homicidal, Suicidal, threat to staff... and all critical care pts) @ -yes Reevaluation #5: Differential Dyspnea: Coronary syndrome, arrhythmia, tamponade, asthma, COPD, pulmonary embolism, pneumonia, pneumothorax, pulmonary effusion, anaphylaxis, diabetic ketoacidosis, flailed chest, pulmonary contusion, diaphragmatic rupture, anemia, neuromuscular, this is not meant to be an all-inclusive list. Medical Decision Making - Medical Decision Making 67 male with COPD exacerbation here in the ER x-ray otherwise normal, patient feels well can be discharged home - Lab Data Result diagrams: 11/30/23 12:43 11/30/23 12:43 Lab Results 07/11/30/23 11/30/23 Range/Units 12:43 12:43 12:43 WBC 7.9 (3.8-10.6) k/uL RBC 4.23 L (4.30-5.90) m/uL Hgb 12.2 L (13.0-17.5) gm/dL Hct 36.9 L (39.0-53.0) % MCV 87.2 (80.0-100.0) fL MCH 28.7 (25.0-35.0) pg MCHC 32.9 (31.0-37.0) g/dL RDW 13.9 (11.5-15.5) % Plt Count 247 (150-450) k/uL MPV 7.3 Neutrophils % 72 % Lymphocytes % 19 % Monocytes % 5 % Eosinophils % 3 % Basophils % 1 % Neutrophils # 5.7 (1.3-7.7) k/uL Lymphocytes # 1.5 (1.0-4.8) k/uL Monocytes # 0.4 (0-1.0) k/uL Eosinophils # 0.2 (0-0.7) k/uL Basophils # 0.1 (0-0.2) k/uL PT 9.5 L (10.0-12.5) sec INR 0.8 (<1.2) APTT 25.3 (22.0-30.0) sec Sodium 135 L (137-145) mmol/L Potassium 3.7 (3.5-5.1) mmol/L Chloride 104 (98-107) mmol/L Carbon Dioxide 26 (22-30) mmol/L Anion Gap 5 mmol/L BUN 13 (9-20) mg/dL Creatinine 0.58 L (0.66-1.25) mg/dL Est GFR (CKD-EPI)AfAm >90 (>60 ml/min/1.73 sqM) Est GFR (CKD-EPI)NonAf >90 (>60 ml/min/1.73 sqM) Glucose 74 (74-99) mg/dL Calcium 8.9 (8.4-10.2) mg/dL Magnesium 2.0 (1.6-2.3) mg/dL Total Bilirubin 0.7 (0.2-1.3) mg/dL AST 17 (17-59) U/L ALT 13 (4-49) U/L Alkaline Phosphatase 101 (38-126) U/L Troponin I (0.000-0.034) ng/mL NT-Pro-B Natriuret Pep 167 pg/mL Total Protein 5.8 L (6.3-8.2) g/dL Albumin 3.8 (3.5-5.0) g/dL 11/30/23 Range/Units 12:43 WBC (3.8-10.6) k/uL RBC (4.30-5.90) m/uL Hgb (13.0-17.5) gm/dL Hct (39.0-53.0) % MCV (80.0-100.0) fL MCH (25.0-35.0) pg MCHC (31.0-37.0) g/dL RDW (11.5-15.5) % Plt Count (150-450) k/uL MPV Neutrophils % % Lymphocytes % % Monocytes % % Eosinophils % % Basophils % % Neutrophils # (1.3-7.7) k/uL Lymphocytes # (1.0-4.8) k/uL Monocytes # (0-1.0) k/uL Eosinophils # (0-0.7) k/uL Basophils # (0-0.2) k/uL PT (10.0-12.5) sec INR (<1.2) APTT (22.0-30.0) sec Sodium (137-145) mmol/L Potassium (3.5-5.1) mmol/L Chloride (98-107) mmol/L Carbon Dioxide (22-30) mmol/L Anion Gap mmol/L BUN (9-20) mg/dL Creatinine (0.66-1.25) mg/dL Est GFR (CKD-EPI)AfAm (>60 ml/min/1.73 sqM) Est GFR (CKD-EPI)NonAf (>60 ml/min/1.73 sqM) Glucose (74-99) mg/dL Calcium (8.4-10.2) mg/dL Magnesium (1.6-2.3) mg/dL Total Bilirubin (0.2-1.3) mg/dL AST (17-59) U/L ALT (4-49) U/L Alkaline Phosphatase (38-126) U/L Troponin I <0.012 (0.000-0.034) ng/mL NT-Pro-B Natriuret Pep pg/mL Total Protein (6.3-8.2) g/dL Albumin (3.5-5.0) g/dL - EKG Data -: EKG Interpreted by Me (EKG is sinus 77 NH 143 QRS 88 QTc 409) - Radiology Data Radiology results: report reviewed (Chest x-ray is negative for acute disease), image reviewed Disposition Clinical Impression: COPD (chronic obstructive pulmonary disease), Acute exacerbation of chronic obstructive pulmonary disease, Wheezing, Dyspnea Disposition: HOME SELF-CARE Condition: Good Instructions (If sedation given, give patient instructions): Asthma (ED), Acute Bronchitis (ED), Chronic Bronchitis (ED) Is patient prescribed a controlled substance at d/c from ED?: No Referrals: Linnette Claros MD [Primary Care Provider] - 1-2 days Time of Disposition: 13:00
[2023-11-30] MEDS: IPRATROPIUM-ALBUTEROL 3 ML NEB INHALATION STA ×2 (12:36→15:00)
[2023-11-30 12:49] VITALS: RESP 18
[2023-11-30 13:00] LABS: INR 0.8 (<1.2); Partial Thromboplastin Time 25.3 sec (22.0-30.0); Prothrombin Time 9.5 sec (10.0-12.5)
[2023-11-30 13:06] LABS: Basophils # (A) 0.1 k/uL (0-0.2); Basophils % (A) 1 %; Eosinophils # (A) 0.2 k/uL (0-0.7); Eosinophils % (A) 3 %; HCT 36.9 % (39.0-53.0); HGB 12.2 gm/dL (13.0-17.5); Lymphocytes # (A) 1.5 k/uL (1.0-4.8); Lymphocytes % (A) 19 %; MCH 28.7 pg (25.0-35.0); MCHC 32.9 g/dL (31.0-37.0); MCV 87.2 fL (80.0-100.0); Mean Platelet Volume 7.3; Monocytes # (A) 0.4 k/uL (0-1.0); Monocytes % (A) 5 %; Neutrophils # (A) 5.7 k/uL (1.3-7.7); Neutrophils % (A) 72 %; Platelet Count 247 k/uL (150-450); RBC 4.23 m/uL (4.30-5.90); RDW 13.9 % (11.5-15.5); WBC 7.9 k/uL (3.8-10.6)
[2023-11-30] MEDS: methylPREDNISolone SOD SUCCI 125 MG/2 ML VIAL IV STA (13:29)
[2023-11-30 13:30] LABS: ALT 13 U/L (4-49); AST 17 U/L (17-59); African American GFR (CKD) >90 (>60 ml/min/1.73 sqM); Albumin 3.8 g/dL (3.5-5.0); Alkaline Phosphatase 101 U/L (38-126); Anion Gap 5 mmol/L; Blood Urea Nitrogen 13 mg/dL (9-20); Calcium 8.9 mg/dL (8.4-10.2); Carbon Dioxide 26 mmol/L (22-30); Chloride 104 mmol/L (98-107); Glucose 74 mg/dL (74-99); Non-African American GFR(CKD) >90 (>60 ml/min/1.73 sqM); Potassium 3.7 mmol/L (3.5-5.1); Sodium 135 mmol/L (137-145); Total Bilirubin 0.7 mg/dL (0.2-1.3); Total Protein 5.8 g/dL (6.3-8.2)
[2023-11-30] MEDS: SODIUM CHLORIDE 0.9% 1,000 ML IV STA (13:30)
[2023-11-30 13:38] LABS: NT-Pro-B-Type Natriuretic Pept 167 pg/mL
--- NOTE | 2023-11-30 13:49 | XR ---
EXAMINATION TYPE: XR chest 1V portable DATE OF EXAM: 11/30/2023 Comparison: 11/12/2023, 11/16/2023 Clinical History: 67-year-old male sob Findings: Heart upper limits of normal in size. Aorta and pulmonary vasculature within normal limits. Mild hype rinflation. Mild interstitial density. Old healed right-sided rib fracture deformities. No consolidat ion or pleural effusion. Impression: COPD. Interstitial is slightly more prominent. Correlate to exclude superimposed acute bronchitis.
[2023-11-30 15:18] VITALS: BP 131/72; PULSE 83
== END 2023-11-30 15:18 | disposition home or self-care (01) ==
LOC: EC 11:35
DX: J44.1 Chronic obstructive pulmonary disease with (acute) exacerbation (principal); Z88.5 Allergy status to narcotic agent; Z87.891 Personal history of nicotine dependence
CPT/HCPCS: 36415; 94640 ×2; 93005; 83880; 80053; 83735; 84484; 85025; 85610; 85730; 71045; 99285; 96374; 96361 ×2; J2919

== ENCOUNTER → 2024-04-22 | Outpatient (CLI) | payer MEDICARE, OTHER ==
[2024-04-22 11:46] LABS: African American GFR (CKD) 88 (>60 ml/min/1.73 sqM); Blood Urea Nitrogen 21 mg/dL (9-20); Non-African American GFR(CKD) 76 (>60 ml/min/1.73 sqM)
--- NOTE | 2024-04-22 13:50 | CT ---
EXAMINATION TYPE: CT abdomen pelvis w con CT DLP: 1092 mGycm, Automated exposure control for dose reduction was used. DATE OF EXAM: 04/22/2024 1:20 PM COMPARISON: CT abdomen and pelvis 10/06/2014, CT chest 12/29/2022 CLINICAL INDICATION:Male, 68 years old with history of C85.9A NON-HODGKIN LYMPHOMA, UNSPECIFIED, IN R EMIS; sharp pain left side radiating to back hx of non-hodgkins lymphona TECHNIQUE: Standard CT of the abdomen and pelvis following the administration of 100 cc of Isovue 3 00 IV contrast material and oral contrast. Coronal and sagittal reformats were performed. FINDINGS: LOWER CHEST: Similar bilateral lower lobe patchy airspace opacities from prior exam. ABDOMEN LIVER: Unremarkable GALLBLADDER AND BILE DUCTS: Cholelithiasis. No biliary duct dilatation. PANCREAS: Unremarkable. SPLEEN: Unremarkable. ADRENAL GLANDS: Unremarkable. KIDNEYS AND URETERS: No evidence of hydronephrosis or renal calculus. The kidneys enhance symmetrical ly. Contrast is demonstrated within both collecting systems on the delayed phase. PELVIS BLADDER: Unremarkable REPRODUCTIVE: Unremarkable. ABDOMEN & PELVIS STOMACH AND BOWEL: Stomach and duodenum are unremarkable. Enteric contrast reaches the transverse col on. Moderate amount of stool is present within the colon. Redundant sigmoid colon. No focal bowel wal l thickening or surrounding inflammatory changes. No evidence of bowel obstruction. PERITONEUM: No evidence of pneumoperitoneum or free fluid. VASCULATURE: Mild to moderate atherosclerotic calcifications are present throughout the abdominal aor ta and its branches. No evidence of aortic aneurysm. MUSCULOSKELETAL: No acute osseous abnormalities. Mild disc degeneration changes are present throughou t the thoracolumbar spine. No aggressive osseous lesion. LYMPH NODES: No evidence for lymphadenopathy. SOFT TISSUE/ABDOMINAL WALL: Unremarkable IMPRESSION: 1. No acute abdominal/pelvic process. 2. No lymphadenopathy identified. 3. Similar patchy bilateral lower lobe airspace opacities concerning for infectious process. Correlat e for aspiration pneumonia. [facility], , 04/22/2024 1:47 PM
== END | disposition home or self-care (01) ==
LOC: RADCTMAIN 11:07
PROVIDERS: ATTEND Internal Medicine Hematology & Oncology
DX: C85.9A Non-Hodgkin lymphoma, unspecified, in remission (principal); R91.8 Other nonspecific abnormal finding of lung field
CPT/HCPCS: 82565; 84520; 74177; 36415; Q9967

== ENCOUNTER 2024-05-21 12:39 | Emergency (ER) | payer MEDICARE, OTHER ==
--- NOTE | 2024-05-21 13:45 | ED ---
Recheck HPI - General Chief Complaint: Recheck/Abnormal Lab/Rx Stated Complaint: swollen lymph node Time Seen by Provider: 05/21/24 13:42 Source: patient, RN notes reviewed Mode of arrival: ambulatory Limitations: no limitations - History of Present Illness Initial Comments: 68-year-old male with history of non-Hodgkin's lymphoma presenting for evaluati on of swollen lymph node. States at 2 AM last night he noticed he has a swollen, painful lymph node on the right side of his neck. States he follows with Dr. Reed every 3 months but is not currently under treatment. Denies any other symptoms such as fever, cough, sore throat, nasal congestion, abdominal pain. - Related Data Home Medications Medication Instructions Recorded Confirmed Albuterol Nebulized [Ventolin 2.5 mg INHALATION RT-QID PRN 06/15/23 11/30/23 Nebulized] Albuterol Inhaler [Ventolin Hfa 2 puff INHALATION RT-TID 11/30/23 11/30/23 Inhaler] Fluticasone Propion/Salmeterol 1 puff INHALATION RT-BID 11/30/23 11/30/23 [Wixela 100-50 Inhub] Ibuprofen [Motrin] 800 mg PO BID PRN 11/30/23 11/30/23 predniSONE 5 mg PO DIRECTED 11/30/23 11/30/23 predniSONE See Taper PO DIRECTED 11/30/23 11/30/23 Previous Rx's Medication Instructions Recorded Albuterol Inhaler [Ventolin Hfa 2 puff INHALATION TID #8 gm 11/30/23 Inhaler] Albuterol Nebulized [Ventolin 2.5 mg INHALATION Q4H PRN #25 each 11/30/23 Nebulized] predniSONE 50 mg PO DAILY #5 tab 11/30/23 Allergies Allergy/AdvReac Type Severity Reaction Status Date / Time morphine AdvReac pt states Verified 05/21/24 13:02 low heartrate Review of Systems ROS Statement: Those systems with pertinent positive or pertinent negative responses have been documented in the HPI. ROS Other: All systems not noted in ROS Statement are negative. Past Medical History Past Medical History: Asthma, Cancer, COPD, Rheumatoid Arthritis (RA) Additional Past Medical History / Comment(s): Leukemia, SPLEENOMEGLY now normal, heart cath with stent History of Any Multi-Drug Resistant Organisms: C-DIFF Date of last positivie culture/infection: 2013 MDRO Source:: stool Past Surgical History: Heart Catheterization With Stent, Orthopedic Surgery Additional Past Surgical History / Comment(s): TESTICULAR SURGERY, LT KNEE TORN LIGAMENT REPAIR, LT CHEEK BONE FX-SX REPAIRED Past Anesthesia/Blood Transfusion Reactions: No Reported Reaction Past Psychological History: No Psychological Hx Reported Smoking Status: Current every day smoker Past Alcohol Use History: None Reported Past Drug Use History: None Reported - Past Family History Father Additional Family Medical History / Comment(s): AT AGE 51- SUICIDE Mother Additional Family Medical History / Comment(s): MOM AGE 67- BRAIN HEMORRAGE. Mother history of Crohn's disease General Exam Limitations: no limitations General appearance: alert, in no apparent distress Head exam: Present: atraumatic, normocephalic, normal inspection Eye exam: Present: normal appearance, PERRL, EOMI. Absent: scleral icterus, conjunctival injection, periorbital swelling ENT exam: Present: normal exam, normal oropharynx, mucous membranes moist Neck exam: Present: normal inspection, lymphadenopathy (Swollen, tender right- sided anterior cervical lymph node). Absent: tenderness, meningismus Respiratory exam: Present: normal lung sounds bilaterally. Absent: respiratory distress, wheezes, rales, rhonchi, stridor Cardiovascular Exam: Present: regular rate, normal rhythm, normal heart sounds. Absent: systolic murmur, diastolic murmur, rubs, gallop, clicks Neurological exam: Present: alert, oriented X3 Psychiatric exam: Present: normal affect, normal mood Skin exam: Present: warm, dry, intact, normal color. Absent: rash Course Vital Signs 05/21/24 05/21/24 13:02 15:48 Temperature 98.3 F 98.1 F Pulse Rate 97 70 Respiratory 20 18 Rate Blood Pressure 103/74 108/71 O2 Sat by Pulse 96 97 Oximetry Medical Decision Making - Medical Decision Making Was pt. sent in by a medical professional or institution (, SHIRA, DATABASE SECURITY ADMINISTRATOR, urgent care, hospital, or shelter...) When possible be specific @ -No Did you speak to anyone other than the patient for history (EMS, parent, family, police, friend...)? What history was obtained from this source @ -No Did you review nursing and triage notes (agree or disagree)? Why? @ -I reviewed and agree with nursing and triage notes Were old charts reviewed (outside hosp., previous admission, EMS record, old EKG, old radiological studies, urgent care reports/EKG's, shelter records)? Report findings @ -No old charts were reviewed Differential Diagnosis (chest pain, altered mental status, abdominal pain women, abdominal pain men, vaginal bleeding, weakness, fever, dyspnea, syncope, headache, dizziness, GI bleed, back pain, seizure, CVA, palpatations, mental health, musculoskeletal)? @ -Hodgkin's lymphoma, non-Hodgkin's lymphoma, mononucleosis, toxoplasmosis, cat scratch disease EKG interpreted by me (3pts min.). @ -None X-rays interpreted by me (1pt min.). @ -Chest x-ray reveals no acute process CT interpreted by me (1pt min.). @ -None done U/S interpreted by me (1pt. min.). @ -None done What testing was considered but not performed or refused? (CT, X-rays, U/S, labs)? Why? @ -None What meds were considered but not given or refused? Why? @ -None Did you discuss the management of the patient with other professionals (professionals i.e. , PA, DATABASE SECURITY ADMINISTRATOR, lab, RT, psych nurse, geriatric social work professor, centrifugal spinner, teacher, client sales and service officer, case assembler)? Give summary @ -No Was smoking cessation discussed for >3mins.? @ -No Was critical care preformed (if so, how long)? @ -No Were there social determinants of health that impacted care today? How? (Homelessness, low income, unemployed, alcoholism, drug addiction, transportation, low edu. Level, literacy, decrease access to med. care, snf, rehab)? @ -No Was there de-escalation of care discussed even if they declined (Discuss DNR or withdrawal of care, Hospice)? DNR status @ -No What co-morbidities impacted this encounter? (DM, HTN, Smoking, COPD, CAD, Cancer, CVA, ARF, Chemo, Hep., AIDS, mental health diagnosis, sleep apnea, morbid obesity)? @ -None Was patient admitted / discharged? Hospital course, mention meds given and route, prescriptions, significant lab abnormalities, going to OR and other pertinent info. @ -Discharge. This is a 68-year-old male with history of non-Hodgkin lymphoma presenting for right cervical lymph node swelling x 1 day. No red flag symp toms. Vital signs within acceptable limits. Physical examination remarkable for tender, enlarged right-sided cervical lymph node. Lab work including CBC and CMP unremarkable. Chest x-ray reveals no acute process. Results discussed with patient. I believe it is safe to discharge patient home with close follow- up with Dr. Reed. Patient is agreeable to plan. Case was discussed with my ED attending Dr. Aguilar Undiagnosed new problem with uncertain prognosis? @ -No Drug Therapy requiring intensive monitoring for toxicity (Heparin, Nitro, Insulin, Cardizem)? @ -No Were any procedures done? @ -No Diagnosis/symptom? @ -Cervical lymphadenopathy Acute, or Chronic, or Acute on Chronic? @ -Acute Uncomplicated (without systemic symptoms) or Complicated (systemic symptoms)? @ -Uncomplicated Side effects of treatment? @ -No Exacerbation, Progression, or Severe Exacerbation? @ -No Poses a threat to life or bodily function? How? (Chest pain, USA, OR, pneumonia, PE, COPD, DKA, ARF, appy, cholecystitis, CVA, Diverticulitis, Homicidal, Suicidal, threat to staff... and all critical care pts) @ -No - Lab Data Result diagrams: 05/21/24 13:51 05/21/24 13:51 Lab Results 05/21/24 05/21/24 Range/Units 13:51 13:51 WBC 7.6 (3.8-10.6) k/uL RBC 4.75 (4.30-5.90) m/uL Hgb 13.3 (13.0-17.5) gm/dL Hct 41.5 (39.0-53.0) % MCV 87.4 (80.0-100.0) fL MCH 27.9 (25.0-35.0) pg MCHC 31.9 (31.0-37.0) g/dL RDW 15.1 (11.5-15.5) % Plt Count 181 (150-450) k/uL MPV 7.1 Neutrophils % 69 % Lymphocytes % 21 % Monocytes % 6 % Eosinophils % 2 % Basophils % 1 % Neutrophils # 5.3 (1.3-7.7) k/uL Lymphocytes # 1.6 (1.0-4.8) k/uL Monocytes # 0.5 (0-1.0) k/uL Eosinophils # 0.2 (0-0.7) k/uL Basophils # 0.1 (0-0.2) k/uL Sodium 141 (137-145) mmol/L Potassium 4.2 (3.5-5.1) mmol/L Chloride 105 (98-107) mmol/L Carbon Dioxide 28 (22-30) mmol/L Anion Gap 8 mmol/L BUN 14 (9-20) mg/dL Creatinine 0.76 (0.66-1.25) mg/dL Est GFR (CKD-EPI)AfAm >90 (>60 ml/min/1.73 sqM) Est GFR (CKD-EPI)NonAf >90 (>60 ml/min/1.73 sqM) Glucose 105 H (74-99) mg/dL Calcium 9.3 (8.4-10.2) mg/dL Total Bilirubin 0.3 (0.2-1.3) mg/dL AST 18 (17-59) U/L ALT 17 (4-49) U/L Alkaline Phosphatase 129 H (38-126) U/L Total Protein 6.2 L (6.3-8.2) g/dL Albumin 4.3 (3.5-5.0) g/dL Disposition Clinical Impression: Lymphadenopathy of right cervical region Disposition: HOME SELF-CARE Condition: Stable Additional Instructions: Follow-up with Dr. Reed on Thursday as discussed. Please return to the Emergency Department if symptoms worsen or any other concerns. Is patient prescribed a controlled substance at d/c from ED?: No Referrals: Linnette Claros MD [Primary Care Provider] - 1-2 days Time of Disposition: 15:32
[2024-05-21 14:13] LABS: Basophils # (A) 0.1 k/uL (0-0.2); Basophils % (A) 1 %; Eosinophils # (A) 0.2 k/uL (0-0.7); Eosinophils % (A) 2 %; HCT 41.5 % (39.0-53.0); HGB 13.3 gm/dL (13.0-17.5); Lymphocytes # (A) 1.6 k/uL (1.0-4.8); Lymphocytes % (A) 21 %; MCH 27.9 pg (25.0-35.0); MCHC 31.9 g/dL (31.0-37.0); MCV 87.4 fL (80.0-100.0); Mean Platelet Volume 7.1; Monocytes # (A) 0.5 k/uL (0-1.0); Monocytes % (A) 6 %; Neutrophils # (A) 5.3 k/uL (1.3-7.7); Neutrophils % (A) 69 %; Platelet Count 181 k/uL (150-450); RBC 4.75 m/uL (4.30-5.90); RDW 15.1 % (11.5-15.5); WBC 7.6 k/uL (3.8-10.6)
--- NOTE | 2024-05-21 14:18 | XR ---
EXAMINATION TYPE: XR chest 2V DATE OF EXAM: 05/21/2024 2:13 PM COMPARISON: Previous CT chest study 12/29/2022. CLINICAL INDICATION: Male, 68 years old with history of lymphadenopathy, hx nonhogskins lymphoma; [facility] TECHNIQUE: XR chest 2V Frontal and lateral views of the chest. FINDINGS: Lungs/Pleura: There is no evidence of pleural effusion, focal consolidation, or pneumothorax. Pulmonary vascularity: Unremarkable. Heart/mediastinum: Cardiomediastinal silhouette is unremarkable. Musculoskeletal: No acute osseous pathology. Other findings: None IMPRESSION: No acute cardiopulmonary disease/process. [facility], , 05/21/2024 2:16 PM
[2024-05-21 14:20] LABS: ALT 17 U/L (4-49); AST 18 U/L (17-59); African American GFR (CKD) >90 (>60 ml/min/1.73 sqM); Albumin 4.3 g/dL (3.5-5.0); Alkaline Phosphatase 129 U/L (38-126); Anion Gap 8 mmol/L; Blood Urea Nitrogen 14 mg/dL (9-20); Calcium 9.3 mg/dL (8.4-10.2); Carbon Dioxide 28 mmol/L (22-30); Chloride 105 mmol/L (98-107); Glucose 105 mg/dL (74-99); Non-African American GFR(CKD) >90 (>60 ml/min/1.73 sqM); Potassium 4.2 mmol/L (3.5-5.1); Sodium 141 mmol/L (137-145); Total Bilirubin 0.3 mg/dL (0.2-1.3); Total Protein 6.2 g/dL (6.3-8.2)
[2024-05-21 15:49] VITALS: BP 108/71; PULSE 70; RESP 18; TEMP 98.1
== END 2024-05-21 15:49 | disposition home or self-care (01) ==
LOC: EC 12:39
DX: R59.0 Localized enlarged lymph nodes (principal); F17.200 Nicotine dependence, unspecified, uncomplicated; Z88.5 Allergy status to narcotic agent
CPT/HCPCS: 36415; 71046; 80053; 85025; 99283

== ENCOUNTER 2024-05-27 15:50 | Emergency (ER) | payer MEDICARE, OTHER ==
[2024-05-27 16:02] VITALS: RESP 20
--- NOTE | 2024-05-27 16:18 | ED ---
SOB HPI - General Chief Complaint: Shortness of Breath Stated Complaint: short of breath, coughing Time Seen by Provider: 05/27/24 16:05 Source: patient, RN notes reviewed Mode of arrival: ambulatory Limitations: no limitations - History of Present Illness Initial Comments: This is a 68-year-old male with history of COPD, asthma, heart catheterization, non-Hodgkin's lymphoma presenting with productive cough and shortness of breath x 5 days. Patient endorses associated fatigue and poor eating condition at home. Endorses recurrent pneumonia over the past several years. Denies recent sick contacts. Endorses use of aspirin with minimal relief. Denies fever, chills, chest pain, abdominal pain, N/V/D, hemoptysis MD Complaint: shortness of breath, cough Onset/Timin -: days(s) Improves With: nothing Worsens With: nothing Known History Of: COPD, asthma, recurrent pneumonia Associated Symptoms: sputum production Treatments Prior to Arrival: aspirin - Related Data Home Medications Medication Instructions Recorded Confirmed Albuterol Nebulized [Ventolin 2.5 mg INHALATION RT-QID PRN 06/15/23 11/30/23 Nebulized] Albuterol Inhaler [Ventolin Hfa 2 puff INHALATION RT-TID 11/30/23 11/30/23 Inhaler] Fluticasone Propion/Salmeterol 1 puff INHALATION RT-BID 11/30/23 11/30/23 [Wixela 100-50 Inhub] Ibuprofen [Motrin] 800 mg PO BID PRN 11/30/23 11/30/23 predniSONE 5 mg PO DIRECTED 11/30/23 11/30/23 predniSONE See Taper PO DIRECTED 11/30/23 11/30/23 Previous Rx's Medication Instructions Recorded Albuterol Inhaler [Ventolin Hfa 2 puff INHALATION TID #8 gm 11/30/23 Inhaler] Albuterol Nebulized [Ventolin 2.5 mg INHALATION Q4H PRN #25 each 11/30/23 Nebulized] predniSONE 50 mg PO DAILY #5 tab 11/30/23 Albuterol Inhaler [Ventolin Hfa 1 - 2 puff INHALATION Q6H PRN #1 05/27/24 Inhaler] each predniSONE 50 mg PO DAILY #5 tab 05/27/24 Allergies Allergy/AdvReac Type Severity Reaction Status Date / Time morphine AdvReac pt states Verified 05/27/24 15:59 low heartrate Review of Systems ROS Statement: Those systems with pertinent positive or pertinent negative responses have been documented in the HPI. ROS Other: All systems not noted in ROS Statement are negative. Past Medical History Past Medical History: Asthma, Cancer, COPD, Rheumatoid Arthritis (RA) Additional Past Medical History / Comment(s): Leukemia, SPLEENOMEGLY now normal, heart cath with stent History of Any Multi-Drug Resistant Organisms: C-DIFF Date of last positivie culture/infection: 2013 MDRO Source:: stool Past Surgical History: Heart Catheterization With Stent, Orthopedic Surgery Additional Past Surgical History / Comment(s): TESTICULAR SURGERY, LT KNEE TORN LIGAMENT REPAIR, LT CHEEK BONE FX-SX REPAIRED Past Anesthesia/Blood Transfusion Reactions: No Reported Reaction Past Psychological History: No Psychological Hx Reported Smoking Status: Current every day smoker Past Alcohol Use History: None Reported Past Drug Use History: None Reported - Past Family History Father Additional Family Medical History / Comment(s): AT AGE 51- SUICIDE Mother Additional Family Medical History / Comment(s): MOM AGE 67- BRAIN HEMORRAGE. Mother history of Crohn's disease General Exam Limitations: no limitations General appearance: alert, in no apparent distress Head exam: Present: atraumatic, normocephalic, normal inspection Eye exam: Present: normal appearance, PERRL, EOMI. Absent: scleral icterus, conjunctival injection, periorbital swelling ENT exam: Present: normal exam, mucous membranes moist Neck exam: Present: normal inspection. Absent: tenderness, meningismus, lymphadenopathy Respiratory exam: Present: wheezes, rhonchi, accessory muscle use, decreased breath sounds, prolonged expiratory. Absent: respiratory distress, rales, stridor Cardiovascular Exam: Present: regular rate, normal rhythm, normal heart sounds. Absent: systolic murmur, diastolic murmur, rubs, gallop, clicks GI/Abdominal exam: Present: soft, normal bowel sounds. Absent: distended, tenderness, guarding, rebound, rigid Extremities exam: Present: normal inspection, full ROM, normal capillary refill. Absent: tenderness, pedal edema, joint swelling, calf tenderness Back exam: Present: normal inspection Neurological exam: Present: alert, oriented X3, CN II-XII intact Psychiatric exam: Present: normal affect, normal mood Skin exam: Present: warm, dry, intact, normal color. Absent: rash Course Vital Signs 05/27/24 05/27/24 05/27/24 15:59 16:10 17:29 Temperature 97.5 F L Pulse Rate 76 80 Respiratory 20 20 Rate Blood Pressure 129/73 O2 Sat by Pulse 96 Oximetry 05/27/24 05/27/24 17:36 18:16 Temperature 97.9 F Pulse Rate 74 75 Respiratory 20 Rate Blood Pressure 125/84 O2 Sat by Pulse 96 Oximetry Medical Decision Making - Medical Decision Making Was pt. sent in by a medical professional or institution (, PA, [employer], urgent care, hospital, or intermediate...) When possible be specific @ -[No] Did you speak to anyone other than the patient for history (EMS, parent, family, police, friend...)? What history was obtained from this source @ -[No] Did you review nursing and triage notes (agree or disagree)? Why? @ -[I reviewed and agree with nursing and triage notes] Were old charts reviewed (outside hosp., previous admission, EMS record, old EKG, old radiological studies, urgent care reports/EKG's, intermediate records)? Report findings @ -[No old charts were reviewed] Differential Diagnosis (chest pain, altered mental status, abdominal pain women, abdominal pain men, vaginal bleeding, weakness, fever, dyspnea, syncope, headache, dizziness, GI bleed, back pain, seizure, CVA, palpatations, mental hea lth, musculoskeletal)? @ -Differential Fever: Pneumonia, viral URI, endocarditis, myocarditis, pericarditis, otitis, sinusitis, peritonsillar Abscess, retropharyngeal Abscess, epiglottitis, peritonitis, appendicitis, Ana cystitis, diverticulitis, hepatitis, colitis, UTI, PID, TOA, pyelonephritis, prostatitis, epididymitis, meningitis, encephalitis, pulmonary embolism, CVA, thyroid storm, pancreatitis, adrenal crisis, cavernous sinus thrombosis, this is not meant to be an all-inclusive list. EKG interpreted by me (3pts min.). @ -Not done X-rays interpreted by me (1pt min.). @ -[None done] CT interpreted by me (1pt min.). @ -[None done] U/S interpreted by me (1pt. min.). @ -[None done] What testing was considered but not performed or refused? (CT, X-rays, U/S, labs)? Why? @ -[None] What meds were considered but not given or refused? Why? @ -[None] Did you discuss the management of the patient with other professionals (professionals i.e. , PA, [employer], lab, RT, psych nurse, social worker health services, home health registered nurse, teacher, sustainability officer, casework supervisor)? Give summary @ -[No] Was smoking cessation discussed for >3mins.? @ -[No] Was critical care preformed (if so, how long)? @ -[No] Were there social determinants of health that impacted care today? How? (Homelessness, low income, unemployed, alcoholism, drug addiction, transportation, low edu. Level, literacy, decrease access to med. care, longterm, re hab)? @ -[No] Was there de-escalation of care discussed even if they declined (Discuss DNR or withdrawal of care, Hospice)? DNR status @ -[No] What co-morbidities impacted this encounter? (DM, HTN, Smoking, COPD, CAD, Cancer, CVA, ARF, Chemo, Hep., AIDS, mental health diagnosis, sleep apnea, morbid obesity)? @ -Asthma, COPD, non-Hodgkin's lymphoma Was patient admitted / discharged? Hospital course, mention meds given and route, prescriptions, significant lab abnormalities, going to OR and other pertinent info. @ -[hospital course] Undiagnosed new problem with uncertain prognosis? @ -[No] Drug Therapy requiring intensive monitoring for toxicity (Heparin, Nitro, Insulin, Cardizem)? @ -[No] Were any procedures done? @ -[No] Diagnosis/symptom? @ -Bronchitis Acute, or Chronic, or Acute on Chronic? @ -Acute Uncomplicated (without systemic symptoms) or Complicated (systemic symptoms)? @ -Complicated Side effects of treatment? @ -[No] Exacerbation, Progression, or Severe Exacerbation? @ -[No] Poses a threat to life or bodily function? How? (Chest pain, USA, [place], pneumonia, PE, COPD, DKA, ARF, appy, cholecystitis, CVA, Diverticulitis, Homicidal, Suicidal, threat to staff... and all critical care pts) @ -[No] - Lab Data Result diagrams: 05/27/24 16:24 05/27/24 16:24 Lab Results 05/27/24 05/27/24 05/27/24 Range/Units 16:24 16:24 16:24 WBC 11.4 H (3.8-10.6) k/uL RBC 4.25 L (4.30-5.90) m/uL Hgb 12.0 L (13.0-17.5) gm/dL Hct 36.9 L (39.0-53.0) % MCV 86.8 (80.0-100.0) fL MCH 28.2 (25.0-35.0) pg MCHC 32.5 (31.0-37.0) g/dL RDW 14.9 (11.5-15.5) % Plt Count 195 (150-450) k/uL MPV 7.5 Neutrophils % 74 % Lymphocytes % 17 % Monocytes % 5 % Eosinophils % 3 % Basophils % 0 % Neutrophils # 8.5 H (1.3-7.7) k/uL Lymphocytes # 1.9 (1.0-4.8) k/uL Monocytes # 0.6 (0-1.0) k/uL Eosinophils # 0.3 (0-0.7) k/uL Basophils # 0.1 (0-0.2) k/uL VBG pH (7.31-7.41) VBG pCO2 (37-51) mmHg VBG HCO3 (24-28) mmol/L Sodium 141 (137-145) mmol/L Potassium 4.3 (3.5-5.1) mmol/L Chloride 106 (98-107) mmol/L Carbon Dioxide 25 (22-30) mmol/L Anion Gap 10 mmol/L BUN 16 (9-20) mg/dL Creatinine 0.73 (0.66-1.25) mg/dL Est GFR (CKD-EPI)AfAm >90 (>60 ml/min/1.73 sqM) Est GFR (CKD-EPI)NonAf >90 (>60 ml/min/1.73 sqM) Glucose 65 L (74-99) mg/dL Plasma Lactic Acid Lucas 1.1 (0.7-2.0) mmol/L Calcium 9.5 (8.4-10.2) mg/dL Total Bilirubin 0.4 (0.2-1.3) mg/dL AST 26 (17-59) U/L ALT 22 (4-49) U/L Alkaline Phosphatase 118 (38-126) U/L Total Protein 6.4 (6.3-8.2) g/dL Albumin 4.4 (3.5-5.0) g/dL Influenza Type A (PCR) (Not Detectd) Influenza Type B (PCR) (Not Detectd) RSV (PCR) (Not Detectd) SARS-CoV-2 (PCR) (Not Detectd) 05/27/24 05/27/24 Range/Units 16:24 16:24 WBC (3.8-10.6) k/uL RBC (4.30-5.90) m/uL Hgb (13.0-17.5) gm/dL Hct (39.0-53.0) % MCV (80.0-100.0) fL MCH (25.0-35.0) pg MCHC (31.0-37.0) g/dL RDW (11.5-15.5) % Plt Count (150-450) k/uL MPV Neutrophils % % Lymphocytes % % Monocytes % % Eosinophils % % Basophils % % Neutrophils # (1.3-7.7) k/uL Lymphocytes # (1.0-4.8) k/uL Monocytes # (0-1.0) k/uL Eosinophils # (0-0.7) k/uL Basophils # (0-0.2) k/uL VBG pH 7.37 (7.31-7.41) VBG pCO2 44 (37-51) mmHg VBG HCO3 25 (24-28) mmol/L Sodium (137-145) mmol/L Potassium (3.5-5.1) mmol/L Chloride (98-107) mmol/L Carbon Dioxide (22-30) mmol/L Anion Gap mmol/L BUN (9-20) mg/dL Creatinine (0.66-1.25) mg/dL Est GFR (CKD-EPI)AfAm (>60 ml/min/1.73 sqM) Est GFR (CKD-EPI)NonAf (>60 ml/min/1.73 sqM) Glucose (74-99) mg/dL Plasma Lactic Acid Lucas (0.7-2.0) mmol/L Calcium (8.4-10.2) mg/dL Total Bilirubin (0.2-1.3) mg/dL AST (17-59) U/L ALT (4-49) U/L Alkaline Phosphatase (38-126) U/L Total Protein (6.3-8.2) g/dL Albumin (3.5-5.0) g/dL Influenza Type A (PCR) Not Detected (Not Detectd) Influenza Type B (PCR) Not Detected (Not Detectd) RSV (PCR) Not Detected (Not Detectd) SARS-CoV-2 (PCR) Not Detected (Not Detectd) Disposition Clinical Impression: Bronchitis, URI (upper respiratory infection) Disposition: HOME SELF-CARE Condition: Good Instructions (If sedation given, give patient instructions): Acute Bronchitis (ED) Prescriptions: predniSONE 50 mg PO DAILY #5 tab Albuterol Inhaler [Ventolin Hfa Inhaler] 1 - 2 puff INHALATION Q6H PRN #1 each PRN Reason: Shortness Of Breath Is patient prescribed a controlled substance at d/c from ED?: No Referrals: Linnette Claros MD [Primary Care Provider] - 1-2 days Time of Disposition: 17:59
[2024-05-27 16:46] LABS: Basophils # (A) 0.1 k/uL (0-0.2); Basophils % (A) 0 %; Eosinophils # (A) 0.3 k/uL (0-0.7); Eosinophils % (A) 3 %; HCT 36.9 % (39.0-53.0); Lymphocytes # (A) 1.9 k/uL (1.0-4.8); Lymphocytes % (A) 17 %; MCH 28.2 pg (25.0-35.0); MCHC 32.5 g/dL (31.0-37.0); MCV 86.8 fL (80.0-100.0); Mean Platelet Volume 7.5; Monocytes # (A) 0.6 k/uL (0-1.0); Monocytes % (A) 5 %; Neutrophils # (A) 8.5 k/uL (1.3-7.7); Neutrophils % (A) 74 %; Platelet Count 195 k/uL (150-450); RBC 4.25 m/uL (4.30-5.90); RDW 14.9 % (11.5-15.5); WBC 11.4 k/uL (3.8-10.6)
[2024-05-27 16:58] LABS: VBG PH 7.37 (7.31-7.41)
[2024-05-27 16:59] LABS: ALT 22 U/L (4-49); AST 26 U/L (17-59); African American GFR (CKD) >90 (>60 ml/min/1.73 sqM); Albumin 4.4 g/dL (3.5-5.0); Alkaline Phosphatase 118 U/L (38-126); Anion Gap 10 mmol/L; Blood Urea Nitrogen 16 mg/dL (9-20); Calcium 9.5 mg/dL (8.4-10.2); Carbon Dioxide 25 mmol/L (22-30); Chloride 106 mmol/L (98-107); Glucose 65 mg/dL (74-99); Non-African American GFR(CKD) >90 (>60 ml/min/1.73 sqM); Potassium 4.3 mmol/L (3.5-5.1); Sodium 141 mmol/L (137-145); Total Bilirubin 0.4 mg/dL (0.2-1.3); Total Protein 6.4 g/dL (6.3-8.2)
[2024-05-27] MEDS: methylPREDNISolone SOD SUCCI 125 MG/2 ML VIAL IV STA (17:12)
[2024-05-27] MEDS: IPRATROPIUM-ALBUTEROL 3 ML NEB INHALATION STA (17:27)
--- NOTE | 2024-05-27 17:38 | XR ---
EXAMINATION TYPE: XR chest 2V DATE OF EXAM: 05/27/2024 5:05 PM COMPARISON: None. CLINICAL INDICATION: Male, 68 years old with history of difficulty breathing, TECHNIQUE: XR chest 2V view(s) obtained. FINDINGS: The heart size is normal. The pulmonary vasculature is normal. The lungs are clear. IMPRESSION: 1. No acute pulmonary process. [facility], , 05/27/2024 5:36 PM
[2024-05-27 18:18] VITALS: BP 125/84; PULSE 75; TEMP 97.9
== END 2024-05-27 18:18 | disposition home or self-care (01) ==
LOC: EC 15:50
DX: J06.9 Acute upper respiratory infection, unspecified (principal); J20.9 Acute bronchitis, unspecified; J44.89 Other specified chronic obstructive pulmonary disease; Z85.72 Personal history of non-Hodgkin lymphomas; F17.200 Nicotine dependence, unspecified, uncomplicated; Z88.5 Allergy status to narcotic agent
CPT/HCPCS: 36415; 94640; 80053; 82803; 83605; 85025; 87040; 87636; 71046; 99285; 96374; J2919

== ENCOUNTER 2024-05-31 09:28 | Inpatient (IN) | payer MEDICARE, OTHER ==
--- NOTE | 2024-05-31 09:53 | ED ---
General Adult HPI - General Chief complaint: Recheck/Abnormal Lab/Rx Stated complaint: Abn labs-sent by PCP Time Seen by Provider: 05/31/24 09:30 Source: patient, RN/MD Mode of arrival: ambulatory Limitations: no limitations - History of Present Illness Initial comments: Dictation was produced using [employer] dictation software. please excuse any grammatical, word or spelling errors. Chief Complaint: 68-year-old male with history of non-Hodgkin's lymphoma presents emergency department for positive blood cultures. History of Present Illness: Patient was here 4 days ago where he was seen for productive cough. He was prescribed antibiotics however he did not pick them up. States that he feels the same with the productive cough. Denies any chest pain. Denies any fever chills or night sweats. Patient is a have any abdominal pain ear pain diarrhea. Denies any sore throat nasal congestion. The ROS documented in this emergency department record has been reviewed and confirmed by me. Those systems with pertinent positive or negative responses have been documented in the HPI. All other systems are other negative and/or noncontributory. - Related Data Home Medications Medication Instructions Recorded Confirmed Albuterol Nebulized [Ventolin 2.5 mg INHALATION RT-QID PRN 06/15/23 05/31/24 Nebulized] Ibuprofen [Motrin] 800 mg PO DAILY PRN 11/30/23 05/31/24 Albuterol Inhaler [Ventolin Hfa 2 puff INHALATION RT-Q6H PRN 05/31/24 05/31/24 Inhaler] Atorvastatin [Lipitor] 20 mg PO DAILY 05/31/24 05/31/24 Fluticasone Nasal [place] [Flonase 1 spray EA NOSTRIL BID 05/31/24 05/31/24 Nasal [place]] Fluticasone Propion/Salmeterol 2 puff INHALATION RT-BID 05/31/24 05/31/24 [Advair 100-50 Diskus] Previous Rx's Medication Instructions Recorded predniSONE 50 mg PO DAILY #5 tab 11/30/23 Amoxic-Pot Clav 875-125Mg 1 tab PO Q12HR #20 tab 05/28/24 [Augmentin 875-125] Allergies Allergy/AdvReac Type Severity Reaction Status Date / Time morphine AdvReac pt states Verified 05/31/24 10:35 low heartrate Review of Systems ROS Statement: Those systems with pertinent positive or pertinent negative responses have been documented in the HPI. ROS Other: All systems not noted in ROS Statement are negative. Past Medical History Past Medical History: Asthma, Cancer, COPD, Rheumatoid Arthritis (RA) Additional Past Medical History / Comment(s): Leukemia, SPLEENOMEGLY now normal, heart cath with stent History of Any Multi-Drug Resistant Organisms: C-DIFF Date of last positivie culture/infection: 2013 MDRO Source:: stool Past Surgical History: Heart Catheterization With Stent, Orthopedic Surgery Additional Past Surgical History / Comment(s): TESTICULAR SURGERY, LT KNEE TORN LIGAMENT REPAIR, LT CHEEK BONE FX-SX REPAIRED Past Anesthesia/Blood Transfusion Reactions: No Reported Reaction Past Psychological History: No Psychological Hx Reported Smoking Status: Current every day smoker Past Alcohol Use History: None Reported Past Drug Use History: None Reported - Past Family History Father Additional Family Medical History / Comment(s): AT AGE 51- SUICIDE Mother Additional Family Medical History / Comment(s): MOM AGE 67- BRAIN HEMORRAGE. Mother history of Crohn's disease General Exam - General Exam Comments Initial Comments: PHYSICAL EXAM: General Impression: Alert and oriented x3, not in acute distress HEENT: Normocephalic atraumatic, extra-ocular movements intact, pupils equal and reactive to light bilaterally, mucous membranes moist. Cardiovascular: Heart regular rate and rhythm Chest: Able to complete full sentences, no retractions, no tachypnea Abdomen: abdomen soft, non-tender, non-distended, no organomegaly Musculoskeletal: Pulses present and equal in all extremities, no peripheral edema Motor: no focal deficits noted Neurological: CN II-XII grossly intact, no focal motor or sensory deficits noted Skin: Intact with no visualized rashes Psych: Normal affect and mood Limitations: no limitations Course Vital Signs 05/31/24 05/31/24 09:34 10:54 Temperature 97.8 F Pulse Rate 98 76 Respiratory 18 20 Rate Blood Pressure 121/47 124/83 O2 Sat by Pulse 96 96 Oximetry Medical Decision Making - Medical Decision Making Was pt. sent in by a medical professional or institution (, PA, [employer] OPERATOR, urgent care, hospital, or shelter...) When possible be specific @ -No Did you speak to anyone other than the patient for history (EMS, parent, family, police, friend...)? What history was obtained from this source @ -No Did you review nursing and triage notes (agree or disagree)? Why? @ -I reviewed and agree with nursing and triage notes Were old charts reviewed (outside hosp., previous admission, EMS record, old EKG, old radiological studies, urgent care reports/EKG's, shelter records)? Report findings @ -No old charts were reviewed Differential Diagnosis (chest pain, altered mental status, abdominal pain women, abdominal pain men, vaginal bleeding, musculoskeletal, weakness, fever, dyspnea, syncope, headache, dizziness, GI bleed, back pain, seizure, CVA, palpatations, mental health)? @ -Differential Dyspnea: Coronary syndrome, arrhythmia, tamponade, asthma, COPD, pulmonary embolism, pneumonia, pneumothorax, pulmonary effusion, anaphylaxis, diabetic ketoacidosis, flailed chest, pulmonary contusion, diaphragmatic rupture, anemia, neuromuscula r, this is not meant to be an all-inclusive list. EKG interpreted by me (3pts min.). @ -None done X-rays interpreted by me (1pt min.). @ -Chest x-ray shows pneumonia CT interpreted by me (1pt min.). @ -None done U/S interpreted by me (1pt. min.). @ -None done What testing was considered but not performed or refused? (CT, X-rays, U/S, labs)? Why? @ -None What meds were considered but not given or refused? Why? @ -None Was smoking cessation discussed for >3mins.? @ -No Were there social determinants of health that impacted care today? How? (Homelessness, low income, unemployed, alcoholism, drug addiction, transportation, low edu. Level, literacy, decrease access to med. care, fdc, re hab)? @ -No Was there de-escalation of care discussed even if they declined (Discuss DNR or withdrawal of care, Hospice)? DNR status @ -No What co-morbidities impacted this encounter? (DM, HTN, Smoking, COPD, CAD, Cancer, CVA, ARF, Chemo, Hep., AIDS, mental health diagnosis, sleep apnea, morbid obesity)? @ -Non-Hodgkin's lymphoma Was patient admitted / discharged? Hospital course, mention meds given and route, prescriptions, significant lab abnormalities, going to OR and other pertinent info. @ -68-year-old male presents emergency department for positive blood cultures. Instructed to come back after his blood culture tested positive. Patient does not feel any different from 4 days ago and is seen in the ER and with blood cultures are drawn. Vital signs upon arrival are within acceptable limits. Patient complains of dyspnea. X-ray shows pneumonia. Was not able to order picker/assembler his outpatient antibiotics. Patient stable. Laboratory evaluation is within acceptable limits. Given patient's history of non-Hodgkin's lymphoma and pneumonia. Patient given ceftriaxone and azithromycin. Case discussed with hospitalist for admission. ID will be consulted Did you discuss the management of the patient with other professionals (professionals i.e. , PA, [employer] SWAGE OPERATOR, lab, RT, psych nurse, social media campaign manager, human resources benefits administrator, teacher, sailing officer, employment case manager)? Give summary @ -No Was critical care preformed (if so, how long)? @ -No Undiagnosed new problem with uncertain prognosis? @ -No Drug Therapy requiring intensive monitoring for toxicity (Heparin, Nitro, Insulin, Cardizem)? @ -No Were any procedures done? @ -No Diagnosis/symptom? Acute, or Chronic, or Acute on Chronic? Uncomplicated (without systemic symptoms) or Complicated (systemic symptoms)? @ -Pneumonia, positive blood cultures Side effects of treatment? @ -No Exacerbation, Progression, or Severe Exacerbation? @ -No Poses a threat to life or bodily function? How? (Chest pain, USA, [place], pneumonia, PE, COPD, DKA, ARF, appy, cholecystitis, CVA, Diverticulitis, Homicidal, Suicidal, threat to staff... and all critical care pts) @ -yes - Lab Data Result diagrams: 05/31/24 10:05 05/31/24 10:05 Lab Results 05/31/24 05/31/24 Range/Units 10:05 10:05 WBC 10.7 H (3.8-10.6) k/uL RBC 3.97 L (4.30-5.90) m/uL Hgb 11.4 L (13.0-17.5) gm/dL Hct 34.7 L (39.0-53.0) % MCV 87.2 (80.0-100.0) fL MCH 28.7 (25.0-35.0) pg MCHC 33.0 (31.0-37.0) g/dL RDW 15.0 (11.5-15.5) % Plt Count 203 (150-450) k/uL MPV 7.0 Neutrophils % 78 % Lymphocytes % 13 % Monocytes % 5 % Eosinophils % 4 % Basophils % 0 % Neutrophils # 8.3 H (1.3-7.7) k/uL Lymphocytes # 1.4 (1.0-4.8) k/uL Monocytes # 0.5 (0-1.0) k/uL Eosinophils # 0.4 (0-0.7) k/uL Basophils # 0.0 (0-0.2) k/uL Sodium 137 (137-145) mmol/L Potassium 4.4 (3.5-5.1) mmol/L Chloride 105 (98-107) mmol/L Carbon Dioxide 23 (22-30) mmol/L Anion Gap 9 mmol/L BUN 14 (9-20) mg/dL Creatinine 0.74 (0.66-1.25) mg/dL Est GFR (CKD-EPI)AfAm >90 (>60 ml/min/1.73 sqM) Est GFR (CKD-EPI)NonAf >90 (>60 ml/min/1.73 sqM) Glucose 110 H (74-99) mg/dL Calcium 9.0 (8.4-10.2) mg/dL Disposition Clinical Impression: Positive blood cultures Disposition: ADMITTED IP TO THIS HOSP Condition: Fair Referrals: Linnette Claros MD [Primary Care Provider] - 1-2 days Decision Time: 12:25
[2024-05-31 10:12] LABS: Basophils % (A) 0 %; Eosinophils # (A) 0.4 k/uL (0-0.7); Eosinophils % (A) 4 %; HCT 34.7 % (39.0-53.0); HGB 11.4 gm/dL (13.0-17.5); Lymphocytes # (A) 1.4 k/uL (1.0-4.8); Lymphocytes % (A) 13 %; MCH 28.7 pg (25.0-35.0); MCV 87.2 fL (80.0-100.0); Monocytes # (A) 0.5 k/uL (0-1.0); Monocytes % (A) 5 %; Neutrophils # (A) 8.3 k/uL (1.3-7.7); Neutrophils % (A) 78 %; Platelet Count 203 k/uL (150-450); RBC 3.97 m/uL (4.30-5.90); WBC 10.7 k/uL (3.8-10.6)
--- NOTE | 2024-05-31 10:18 | XR ---
EXAMINATION TYPE: XR chest 2V DATE OF EXAM: 05/31/2024 10:13 AM COMPARISON: Chest radiographs from 05/27/2024 CLINICAL INDICATION: Male, 68 years old with history of productive cough; TECHNIQUE: XR chest 2V Frontal and lateral views of the chest. FINDINGS: Lungs/Pleura: e minimal airspace opacities projecting over the spine on lateral view which appear new from prior. There is flattening of the diaphragm with increased lucency of the lungs. No evidence of pneumothorax, pleural effusion or focal consolidation. Pulmonary vascularity: Unremarkable. Heart/mediastinum: Cardiomediastinal silhouette is unremarkable. Musculoskeletal: No acute osseous pathology. IMPRESSION: Minimal airspace opacities may be new from prior projecting over the spine. Correlate for pneumonia. [facility], , 05/31/2024 10:16 AM
[2024-05-31 10:29] LABS: African American GFR (CKD) >90 (>60 ml/min/1.73 sqM); Anion Gap 9 mmol/L; Blood Urea Nitrogen 14 mg/dL (9-20); Carbon Dioxide 23 mmol/L (22-30); Chloride 105 mmol/L (98-107); Glucose 110 mg/dL (74-99); Non-African American GFR(CKD) >90 (>60 ml/min/1.73 sqM); Potassium 4.4 mmol/L (3.5-5.1); Sodium 137 mmol/L (137-145)
[2024-05-31] MEDS ORDERED: NALOXONE 0.4 MG/ML 1 ML VIAL IV PRN (12:22)
[2024-05-31] MEDS: SODIUM CHLORIDE 0.9% 1,000 ML IV SCH (12:34)
[2024-05-31] MEDS: AZITHROMYCIN 500 MG in SODIUM CHLORIDE 0.9% 250 ML IVPB STA (12:34)
[2024-05-31] MEDS: cefTRIAXone IN SWFI 1,000 MG/10 ML SYRINGE IVP STA (12:34)
[2024-05-31] MEDS ORDERED: IPRATROPIUM-ALBUTEROL 3 ML NEB INHALATION PRN ×2 (13:56→14:17)
[2024-05-31] MEDS: ENOXAPARIN 40 MG/0.4 ML SYRINGE SQ SCH (14:13)
[2024-05-31 14:19] LABS: C Reactive Protein 3.7 mg/dL (<1.0)
--- NOTE | 2024-05-31 14:55 | P.HPIM ---
History of Present Illness H&P Date: 05/31/24 Patient is a 68 years male with a PMH of non-Hodgkin's lymphoma that is remission and follows up with Dr. Reed, asthma, COPD on 3 L nasal cannula, rheumatoid arthritis presenting with shortness of breath and productive cough. Patient was previously here 4 days ago due to productive cough. He was pre scribed antibiotics, but failed to pick them up. He went to PCP today and was advised to go to the ED due to positive blood cultures and failure to receive antibiotics for his productive cough that still persists. He states that the cough is productive of yellow sputum. Denies any blood in the sputum. Patient states he has been more short of breath more than his baseline. States that the shortness of breath wakes him up at night. Patient denies any fever, night sweats, chills, chest pain, nausea, vomiting, diarrhea, constipation, urinary symptoms. Was given azithromycin IVP once in Rocephin 1 g IVP once by ED. Chest x-ray independently interpreted displaying no acute cardio or pulmonary process WBC 10.7, Hgb 11.4, BUN 14, creatinine 0.74. Blood cultures positive for gram-positive bacilli T 97.8 F, [place] 98, RR 18, BP 121/47, O2 sat 96% on room air ED documentation reviewed. Review of systems: Pertinent positives and negatives as discussed in HPI, a complete review of systems was performed and all other systems are negative. Social history: Tobacco: Current everyday smoker half a pack a day for 53 years Alcohol: None reported Recreational drugs: Denies illicit drug use Physical examination: Vital signs reviewed General: non toxic, no distress, appears at stated age, normal weight Derm: no unusual rashes/lesions, warm Head: atraumatic, normocephalic, symmetric Eyes: EOMI, anicteric sclera, pupils equal round reactive to light ENT: Nose and ears atraumatic Cardiovascular: S1S2 reg, no murmur, positive dorsalis pedis pulse bilateral, no edema Lungs: bilateral expiratory wheezing, no rhonchi, no rales, no accessory muscle use Abdominal: soft, nontender to palpation, no guarding Ext: muscle strength 5 out of 5 in all 4 extremities grossly, no gross muscle atrophy Neuro: CN II-XI grossly intact, no gross focal neuro deficits Psych: Alert, oriented to person, place, and time Assessment/Plan: 68-year-old male with non-Hodgkin's lymphoma in remission, COPD, rheumatoid arthritis, asthma presenting with shortness of breath and productive cough. #. Actue COPD Exacerbation #. Asthma, with likely exacerbation #Chronic hypoxic respiratory failure on 3 L - Gold Grade E DuoNebs 3 mL inhalation QID scheduled and PRN Continue with home Symbicort 80-4.5 mcg inhaler 2 puff BID Continue with home prednisone 50 mg PO daily for 5 days Azithromycin 500 mg IVPB daily for 3 days (day 1) On 2 L nasal cannula, keep O2 between 88-92% #. Bacteremia #. Leukocytosis with elevated neutrophils Chest x-ray independently interpreted no clear evidence of acute cardiopulmonary or pulmonary process Preliminary blood culture displaying gram positive bacilli, possible skin contaminant Curb 65 score of 1 Repeat blood cultures ESR, CRP, procalcitonin ordered proBNP ordered Sputum culture ordered - 2 gm Rocephin IVPB q24hr ID consulted #. Normocytic normochromic anemia Hemoglobin 10.7, MCV 87.2 No signs of acute bleeding Likely due to history of non-Hodgkin lymphoma, continue to monitor Chronic #. History Non-Hodgkin lymphoma, in remission #. Hyperlipidemia Continue home atorvastatin 20 mg p.o. daily F: NS at 20 cc/HR E: Replete electrolytes as needed N: Regular diet A: Ambulatory DVT prophylaxis: Lovenox 40 mg SQ daily The patient is admitted with an anticipated greater than than 2 midnight stay for evaluation of acute COPD exacerbation. CODE STATUS: Full code Discussed with: Patient Anticipated discharge place: Home Oralia Simons MD PGY-1 IM Dictation was produced using [employer] dictation software. please excuse any grammatical, word or spelling errors. I have seen and evaluated the patient today. Discussed with the resident and agree with the residents finding and plan as documented in the resident's note. Changes highlighted in blue font. Past Medical History Past Medical History: Asthma, Cancer, COPD, Rheumatoid Arthritis (RA) Additional Past Medical History / Comment(s): Leukemia, SPLEENOMEGLY now normal, heart cath with stent History of Any Multi-Drug Resistant Organisms: C-DIFF Date of last positivie culture/infection: 2013 MDRO Source:: stool Past Surgical History: Heart Catheterization With Stent, Orthopedic Surgery Additional Past Surgical History / Comment(s): TESTICULAR SURGERY, LT KNEE TORN LIGAMENT REPAIR, LT CHEEK BONE FX-SX REPAIRED Past Anesthesia/Blood Transfusion Reactions: No Reported Reaction Past Psychological History: No Psychological Hx Reported Smoking Status: Current every day smoker Past Alcohol Use History: None Reported Past Drug Use History: None Reported - Past Family History Father Additional Family Medical History / Comment(s): AT AGE 51- SUICIDE Mother Additional Family Medical History / Comment(s): MOM AGE 67- BRAIN HEMORRAGE. Mother history of Crohn's disease Medications and Allergies Home Medications Medication Instructions Recorded Confirmed Type Albuterol Nebulized [Ventolin 2.5 mg INHALATION RT-QID PRN 06/15/23 05/31/24 History Nebulized] Ibuprofen [Motrin] 800 mg PO DAILY PRN 11/30/23 05/31/24 History predniSONE 50 mg PO DAILY #5 tab 11/30/23 05/31/24 Rx Amoxic-Pot Clav 875-125Mg 1 tab PO Q12HR #20 tab 05/28/24 05/31/24 Rx [Augmentin 875-125] Albuterol Inhaler [Ventolin Hfa 2 puff INHALATION RT-Q6H PRN 05/31/24 05/31/24 History Inhaler] Atorvastatin [Lipitor] 20 mg PO DAILY 05/31/24 05/31/24 History Fluticasone Nasal [place] [Flonase 1 spray EA NOSTRIL BID 05/31/24 05/31/24 History Nasal [place]] Fluticasone Propion/Salmeterol 2 puff INHALATION RT-BID 05/31/24 05/31/24 History [Advair 100-50 Diskus] Allergies Allergy/AdvReac Type Severity Reaction Status Date / Time morphine AdvReac pt states Verified 05/31/24 10:35 low heartrate Physical Exam Vitals: Vital Signs Temp Pulse Resp BP Pulse Ox 05/31/24 10:54 76 20 124/83 96 05/31/24 09:34 97.8 F 98 18 121/47 96 Intake and Output 05/30/24 05/31/24 05/31/24 22:59 06:59 14:59 Other: Weight 76.204 kg Results CBC & Chem 7: 05/31/24 10:05 05/31/24 10:05 Labs: Abnormal Lab Results - Last 24 Hours (Table) 05/31/24 05/31/24 Range/Units 10:05 10:05 WBC 10.7 H (3.8-10.6) k/uL RBC 3.97 L (4.30-5.90) m/uL Hgb 11.4 L (13.0-17.5) gm/dL Hct 34.7 L (39.0-53.0) % Neutrophils # 8.3 H (1.3-7.7) k/uL Glucose 110 H (74-99) mg/dL
[2024-05-31] MEDS: IPRATROPIUM-ALBUTEROL 3 ML NEB INHALATION SCH (15:09)
[2024-05-31] MEDS: SYMBICORT 80-4.5 MCG INHALER INHALATION SCH (20:05)
[2024-05-31] MEDS: FLUTICASONE NASAL 50MCG/SPRAY 16GM BTL EA NOSTRIL SCH (21:47)
[2024-05-31] MEDS: IBUPROFEN 800 MG TAB PO PRN (23:27)
[2024-06-01] MEDS: ACETAMINOPHEN TAB 325 MG TAB PO PRN (00:44)
[2024-06-01] MEDS: guaiFENesin-DM 100-10MG/5ML 10 ML CUP PO PRN (00:44)
--- NOTE | 2024-06-01 05:27 | P.CONS ---
History of Present Illness - Reason for Consult Consult date: 05/31/24 Positive blood culture Requesting physician: Negro Baxter - Chief Complaint Cough x 4 days - History of Present Illness Patient is a 68-year-old male with a past medical history significant for leukemia rheumatoid arthritis COPD asthma presenting to the hospital for evaluation of increasing shortness of breath and the patient also have a cough that has been getting worse over the last 4 days patient described the cough to the moderate intensity with occasional sputum production which has been yellow denies any blood in the sputum or new pleuritic chest pain denies high-grade fever or chills no nausea no vomiting no abdominal pain or diarrhea apparently the patient was seen in the ER on 05/27/2024 was supposed to be prescribed some antibiotic however the patient did not take those. He did have blood culture done on 05/27/2024 which came back positive with gram-positive bacilli patient also have a chest x-ray with diffuse airspace opacity may be new from the prior projecting over the spine correlate for pneumonia patient was started on Rocephin and Zithromax infectious disease was consulted because of the positive blood culture Review of Systems Positive point and negatives has been mentioned in the HPI, complete review of systems was performed and all other systems are negative Past Medical History Past Medical History: Asthma, Cancer, COPD, Rheumatoid Arthritis (RA) Additional Past Medical History / Comment(s): Leukemia, SPLEENOMEGLY now normal, heart cath with stent History of Any Multi-Drug Resistant Organisms: C-DIFF Year Discovered:: 2013 MDRO Source:: stool Past Surgical History: Heart Catheterization With Stent, Orthopedic Surgery Additional Past Surgical History / Comment(s): TESTICULAR SURGERY, LT KNEE TORN LIGAMENT REPAIR, LT CHEEK BONE FX-SX REPAIRED Past Anesthesia/Blood Transfusion Reactions: No Reported Reaction Past Psychological History: No Psychological Hx Reported Smoking Status: Current every day smoker Past Alcohol Use History: None Reported Past Drug Use History: None Reported - Past Family History Father Additional Family Medical History / Comment(s): AT AGE 51- SUICIDE Mother Additional Family Medical History / Comment(s): MOM AGE 67- BRAIN HEMORRAGE. Mother history of Crohn's disease Medications and Allergies Home Medications Medication Instructions Recorded Confirmed Type Albuterol Nebulized [Ventolin 2.5 mg INHALATION RT-QID PRN 06/15/23 05/31/24 History Nebulized] Ibuprofen [Motrin] 800 mg PO DAILY PRN 11/30/23 05/31/24 History predniSONE 50 mg PO DAILY #5 tab 11/30/23 05/31/24 Rx Amoxic-Pot Clav 875-125Mg 1 tab PO Q12HR #20 tab 05/28/24 05/31/24 Rx [Augmentin 875-125] Albuterol Inhaler [Ventolin Hfa 2 puff INHALATION RT-Q6H PRN 05/31/24 05/31/24 History Inhaler] Atorvastatin [Lipitor] 20 mg PO DAILY 05/31/24 05/31/24 History Fluticasone Nasal [place] [Flonase 1 spray EA NOSTRIL BID 05/31/24 05/31/24 History Nasal [place]] Fluticasone Propion/Salmeterol 2 puff INHALATION RT-BID 05/31/24 05/31/24 History [Advair 100-50 Diskus] Allergies Allergy/AdvReac Type Severity Reaction Status Date / Time morphine AdvReac pt states Verified 05/31/24 10:35 low heartrate Physical Exam Vitals: Vital Signs Temp Pulse Resp BP Pulse Ox 05/31/24 10:54 76 20 124/83 96 05/31/24 09:34 97.8 F 98 18 121/47 96 Intake and Output 05/30/24 05/31/24 05/31/24 22:59 06:59 14:59 Other: Weight 76.204 kg GENERAL DESCRIPTION: Elderly male lying in bed, no distress. No tachypnea or accessory muscle of respiration use. HEENT: Shows Pallor , no scleral icterus. Oral mucous membrane is dry. No pharyngeal erythema or thrush NECK: Trachea central, no thyromegaly. LUNGS: Unlabored breathing. Decreased breath sounds at bases HEART: S1, S2, regular rate and rhythm. No loud murmur ABDOMEN: Soft, no tenderness , guarding or rigidity, no organomegaly EXTREMITIES: No edema of feet. SKIN: No rash, no masses palpable. NEUROLOGICAL: The patient is awake, alert, oriented x3, mood and affect normal. Results CBC & Chem 7: 06/02/24 07:05 06/02/24 07:05 Labs: Abnormal Lab Results - Last 24 Hours (Table) 01/14/25 01/14/25 Range/Units 10:05 10:05 WBC 10.7 H (3.8-10.6) k/uL RBC 3.97 L (4.30-5.90) m/uL Hgb 11.4 L (13.0-17.5) gm/dL Hct 34.7 L (39.0-53.0) % Neutrophils # 8.3 H (1.3-7.7) k/uL Glucose 110 H (74-99) mg/dL Assessment and Plan (1) Positive blood cultures Current Visit: Yes Status: Acute Code(s): R78.81 - BACTEREMIA SNOMED Code(s): 335577126 (2) Bronchopneumonia Current Visit: No Status: Acute Code(s): J18.0 - BRONCHOPNEUMONIA, UNSPECIFIED ORGANISM SNOMED Code(s): 726537635 Plan: 1patient with a positive blood culture on 05/27/2024 with gram-positive bacilli more likely skin contamination blood culture have been repeated to document clearance. 2patient also complaining of cough bring up some yellow sputum with infiltrate seen on chest x-ray concerning for bronchopneumonia likely community-acquired. 3we will try to obtain sputum for Gram stain and culture. 4patient will be treated with Rocephin and Zithromax. We will follow on clinical condition and cultures to further adjust medication if needed Thank you for this consultation we will follow the patient along with you Dictation was produced using [employer] dictation software. please excuse any grammatical, word or spelling errors. Time with Patient: Greater than 30
[2024-06-01] MEDS: ATORVASTATIN 20 MG TAB PO SCH (08:13)
[2024-06-01] MEDS: AZITHROMYCIN 500 MG in SODIUM CHLORIDE 0.9% 250 ML IVPB SCH (08:48)
[2024-06-01] MEDS: predniSONE 50 MG TAB PO SCH (08:48)
[2024-06-01 09:47] LABS: Basophils # (A) 0.04 X 10*3/uL (0.00-0.10); Basophils % (A) 0.6 %; Eosinophils # (A) 0.35 X 10*3/uL (0.04-0.35); Eosinophils % (A) 5.1 %; HCT 32.5 % (39.6-50.0); HGB 10.6 g/dL (13.0-17.0); Lymphocytes # (A) 1.48 X 10*3/uL (0.90-5.00); Lymphocytes % (A) 21.6 %; MCH 28.1 pg (27.0-32.0); MCHC 32.6 g/dL (32.0-37.0); MCV 86.2 FL (80.0-97.0); Mean Platelet Volume 9.3 FL (9.5-12.2); Monocytes # (A) 0.58 X 10*3/uL (0.20-1.00); Monocytes % (A) 8.5 %; NRBC Per 100 WBC 0 X 10*3/uL (0.00-0.01); Neutrophils # (A) 4.36 X 10*3/uL (1.80-7.70); Neutrophils % (A) 63.5 %; Platelet Count 140 X 10*3/uL (140-440); RBC 3.77 X 10*6/uL (4.40-5.60); RDW 15.1 % (11.5-14.5); WBC 6.86 X 10*3/uL (4.50-10.00)
[2024-06-01 09:49] LABS: BUN/Creat Ratio 13.25 Ratio (12.00-20.00); Blood Urea Nitrogen 10.6 mg/dL (9.0-27.0); Calcium 8.5 mg/dL (8.7-10.3); Carbon Dioxide 24.2 mmol/L (21.6-31.8); Chloride 104 mmol/L (96-109); Glucose 91 mg/dL (70-110); Potassium 4.3 mmol/L (3.5-5.5); Sodium 138 mmol/L (135-145)
--- NOTE | 2024-06-01 11:51 | P.PN ---
Subjective Progress Note Date: 06/01/24 Hospital course: Patient is a 68 years male with a PMH of non-Hodgkin's lymphoma that is remission and follows up with Dr. Reed, asthma, COPD on 3 L nasal cannula, rheumatoid arthritis presenting with shortness of breath and productive cough. Patient was previously here 4 days ago due to productive cough. He was prescribed antibiotics, but failed to pick them up. He went to PCP today and was advised to go to the ED due to positive blood cultures and failure to receive antibiotics for his productive cough that still persists. He states that the cough is productive of yellow sputum. Denies any blood in the sputum. Patient states he has been more short of breath more than his baseline. States that the shortness of breath wakes him up at night. Patient denies any fever, night sweats, chills, chest pain, nausea, vomiting, diarrhea, constipation, urinary symptoms. Was given azithromycin IVP once in Rocephin 1 g IVP once by ED. Chest x-ray independently interpreted displaying no acute cardio or pulmonary process WBC 10.7, Hgb 11.4, BUN 14, creatinine 0.74. Blood cultures positive for gram-positive bacilli T 97.8 F, [place] 98, RR 18, BP 121/47, O2 sat 96% on room air Subjective: 06/01/2024: Patient seen and evaluated bedside. Patient reports improvement of shortness of breath and cough. Had some pain last night and was placed on Mot rin. He states his pain levels have gone down. Pertinent positives and negatives as discussed above, a complete review of systems was performed and all other systems are negative. Vitals: Signs Reviewed Physical Exam: General: nontoxic, no distress, appears at stated age Derm: warm, dry, intact Head: atraumatic, normocephalic, symmetric Eyes: EOMI, anicteric sclera Mouth: no lip lesion, mucus membranes moist Cardiovascular: S1 S2 reg, no murmur, rubs, or gallops Lungs: CTA bilateral, no rhonchi, no rales, no accessory muscle use Abdominal: soft, non-tender to palpataion, no appreciable organomegaly Extremities: no gross muscle atrophy, no edema, no contractures Neuro: Alert, Oriented, CNII-XII grossly intact, gait normal Psych: well appearing, appropriate affect Data Received Today: Pertinent Labs: CBC 6.6, Hgb 10.6, platelet 140, CRP 3.7, procalcitonin 0.06 Imaging: N/A Assessment and Plan: 68-year-old male with non-Hodgkin's lymphoma in remission, COPD, rheumatoid arthritis, asthma presenting with shortness of breath and productive cough. #. Actue COPD Exacerbation #. Asthma, with likely exacerbation #Chronic hypoxic respiratory failure on 3 L - Gold Grade E DuoNebs 3 mL inhalation QID scheduled and PRN Continue with home Symbicort 80-4.5 mcg inhaler 2 puff BID Continue with home prednisone 50 mg PO daily for 5 days (day 1) Azithromycin 500 mg IVPB daily for 3 days (day 2) On 2 L nasal cannula, keep O2 between 88-92% #. Bacteremia #. Leukocytosis with elevated neutrophils Chest x-ray independently interpreted no clear evidence of acute cardiopulmon vick or pulmonary process Preliminary blood culture displaying gram positive bacilli, possible skin contaminant Curb 65 score of 1 Blood cultures pending CRP slightly elevated, ESR and procalcitonin negative Sputum culture ordered - 2 gm Rocephin IVPB q24hr (day 2) ID following, note read. Continue with Rocephin and Zithromax and obtain sputum culture. #. Normocytic normochromic anemia No signs of acute bleeding Likely due to history of non-Hodgkin lymphoma, continue to monitor Chronic #. History Non-Hodgkin lymphoma, in remission #. Hyperlipidemia Continue home atorvastatin 20 mg p.o. daily F: NS at 20 cc/HR E: Replete electrolytes as needed N: Regular diet A: Ambulatory DVT ppx: Lovenox 40 mg SQ daily Code status: Full code Anticipated discharge place: Pending clinical course Anticipated discharge time: Pending clinical course Oralia Simons MD PGY-1 IM Dictation was produced using [employer] dictation software. please excuse any grammatical, word or spelling errors. I have seen and evaluated the patient today. Discussed with the resident and agree with the residents finding and plan as documented in the resident's note. Changes highlighted in blue font. Objective - Vital Signs Vital signs: Vital Signs Temp 98.1 F 06/01/24 07:23 Pulse 83 06/01/24 07:41 Resp 18 06/01/24 07:41 BP 143/79 06/01/24 07:23 Pulse Ox 93 L 06/01/24 07:35 FiO2 Intake & Output 05/31/24 06/01/24 06/01/24 18:59 06:59 18:59 Weight 76.204 kg 76.204 kg - Labs CBC & Chem 7: 06/01/24 04:06 06/01/24 04:06 Labs: Abnormal Lab Results - Last 24 Hours (Table) 05/31/24 05/31/24 05/31/24 Range/Units 10:05 10:05 10:05 WBC 10.7 H (3.8-10.6) k/uL RBC 3.97 L (4.30-5.90) m/uL Hgb 11.4 L (13.0-17.5) gm/dL Hct 34.7 L (39.0-53.0) % Neutrophils # 8.3 H (1.3-7.7) k/uL Glucose 110 H (74-99) mg/dL C-Reactive Protein 3.7 H (<1.0) mg/dL
[2024-06-02 07:38] LABS: Basophils % (A) 0 %; Eosinophils # (A) 0.1 k/uL (0-0.7); Eosinophils % (A) 2 %; HCT 34.2 % (39.0-53.0); HGB 11.3 gm/dL (13.0-17.5); Lymphocytes # (A) 1.5 k/uL (1.0-4.8); Lymphocytes % (A) 20 %; MCH 28.9 pg (25.0-35.0); MCHC 33.2 g/dL (31.0-37.0); MCV 87.1 fL (80.0-100.0); Mean Platelet Volume 7.2; Monocytes # (A) 0.4 k/uL (0-1.0); Monocytes % (A) 5 %; Neutrophils # (A) 5.5 k/uL (1.3-7.7); Neutrophils % (A) 72 %; Platelet Count 197 k/uL (150-450); RBC 3.93 m/uL (4.30-5.90); RDW 14.5 % (11.5-15.5); WBC 7.6 k/uL (3.8-10.6)
[2024-06-02 07:48] LABS: African American GFR (CKD) >90 (>60 ml/min/1.73 sqM); Anion Gap 5 mmol/L; Blood Urea Nitrogen 14 mg/dL (9-20); Carbon Dioxide 27 mmol/L (22-30); Chloride 106 mmol/L (98-107); Glucose 96 mg/dL (74-99); Magnesium 2.2 mg/dL (1.6-2.3); Non-African American GFR(CKD) >90 (>60 ml/min/1.73 sqM); Potassium 4.1 mmol/L (3.5-5.1); Sodium 138 mmol/L (137-145)
--- NOTE | 2024-06-02 08:48 | P.PN ---
Subjective Progress Note Date: 06/01/24 Principal diagnosis: Reason for follow-up is pneumonia and a positive blood culture Patient is a 68-year-old male with a past medical history significant for leukemia rheumatoid arthritis COPD asthma presenting to the hospital for evaluation of increasing shortness of breath and the patient also have a cough did have a positive blood culture on a visit to the ER on 05/27/2024 concerning for pneumonia prompting this consultation. On today's evaluation that is 06/01/2024,the patient denies any fever or any chills, patient is breathing comfortably on room air, the patient denies chest pain has been complaining of some shortness of breath he also have a cough moder ate intensity pain Sputum No Hemoptysis No Vomiting or Diarrhea. Patient White Count Is Normalized to 6.86 Creatinine 0.8 Repeat Blood and Sputum Cultures Currently Pending Objective - Vital Signs Vital signs: Vital Signs Temp 98.1 F 06/01/24 07:23 Pulse 88 06/01/24 11:08 Resp 18 06/01/24 11:08 BP 143/79 06/01/24 07:23 Pulse Ox 93 L 06/01/24 07:35 FiO2 Intake & Output 05/31/24 06/01/24 06/01/24 18:59 06:59 18:59 Weight 76.204 kg 76.204 kg - Exam GENERAL DESCRIPTION: An elderly male lying in bed in no distress RESPIRATORY SYSTEM: Unlabored breathing , coarse breath sounds at bases HEART: S1 S2 regular rate and rhythm , ABDOMEN: Soft , no tenderness EXTREMITIES: No edema feet - Labs CBC & Chem 7: 06/02/24 07:05 06/02/24 07:05 Labs: Abnormal Lab Results - Last 24 Hours (Table) 05/31/24 06/01/24 06/01/24 Range/Units 10:05 04:06 04:06 RBC 3.77 L (4.40-5.60) X 10*6/uL Hgb 10.6 L (13.0-17.0) g/dL Hct 32.5 L (39.6-50.0) % RDW 15.1 H (11.5-14.5) % MPV 9.3 L (9.5-12.2) FL Immature Gran # 0.05 H (0.00-0.04) X 10*3/uL Calcium 8.5 L (8.7-10.3) mg/dL C-Reactive Protein 3.7 H (<1.0) mg/dL Assessment and Plan (1) Positive blood cultures Current Visit: Yes Status: Acute Code(s): R78.81 - BACTEREMIA SNOMED Code(s): 791592500 (2) Bronchopneumonia Current Visit: No Status: Acute Code(s): J18.0 - BRONCHOPNEUMONIA, UNSPECIFIED ORGANISM SNOMED Code(s): 841157089 Plan: 1patient with a positive blood culture on 05/27/2024 with gram-positive bacilli more likely skin contamination blood culture have been repeated to document cl earance. 2patient also complaining of cough bring up some yellow sputum with infiltrate seen on chest x-ray concerning for bronchopneumonia likely community-acquired. 3currently waiting for repeat blood culture and sputum culture to finalize 4patient will be continued with Rocephin and Zithromax while waiting for the culture to finalize. Dictation was produced using [employer] dictation software. please excuse any grammatical, word or spelling errors.
--- NOTE | 2024-06-02 14:25 | P.DS ---
Providers Date of admission: 05/31/24 12:22 Discharge Diagnosis: Acute COPD exacerbation Asthma, with likely exacerbation Chronic hypoxic respiratory failure on 3 L NC Bacteremia Leukocytosis with elevated neutrophils Normocytic normochromic anemia History of non-Hodgkin lymphoma, in remission Hyperlipidemia Hospital Course: Patient is a 68 years male with a PMH of non-Hodgkin's lymphoma that is remission and follows up with Dr. Reed, asthma, COPD on 3 L nasal cannula, rheumatoid arthritis presenting with shortness of breath and productive cough. Patient was previously here 4 days ago due to productive cough. He was prescribed antibiotics, but failed to pick them up. He went to PCP today and was advised to go to the ED due to positive blood cultures and failure to receive antibiotics for his productive cough that still persists. He states that the cough is productive of yellow sputum. Denies any blood in the sputum. Patient states he has been more short of breath more than his baseline. States that the shortness of breath wakes him up at night. Patient denies any fever, night sweats, chills, chest pain, nausea, vomiting, diarrhea, constipation, urinary symptoms. Was given azithromycin IVP once in Rocephin 1 g IVP once by ED. Chest x-ray independently interpreted displaying no acute cardio or pulmonary process WBC 10.7, Hgb 11.4, BUN 14, creatinine 0.74. Blood cultures positive for gram-positive bacilli T 97.8 F, AR 98, RR 18, BP 121/47, O2 sat 96% on room air Patient was admitted to internal medicine service for acute exacerbation of COPD. Infectious disease consulted. While admitted patient was placed on prednisone, azithromycin, Rocephin, proper breathing treatment for his acute exacerbation. 06/01/2024: Patient seen and evaluated bedside. Patient reports improvement of shortness of breath and cough. Had some pain last night and was placed on Motrin. He states his pain levels have gone down. 06/02/2024: Patient seen and evaluated bedside. Symptoms dyspnea and cough have improved. Blood and sputum cultures showing no growth after 24 hours. His course of azithromycin is completed. Patient being discharged for 3 days prednisone to finish course. Patient being discharged with 7 days of Ceftin. He is to follow-up with his PCP. He is being discharged home. Vital signs reviewed and stable. Physical examination: Vital signs reviewed General: non toxic, no distress, appears at stated age, normal weight Derm: no unusual rashes/lesions, warm Head: atraumatic, normocephalic, symmetric Eyes: EOMI, anicteric sclera, pupils equal round reactive to light ENT: Nose and ears atraumatic Neck: No cervical lymphadenopathy, trachea midline, supple Mouth: no lip lesion, mucus membranes moist Cardiovascular: S1S2 reg, no murmur, positive dorsalis pedis pulse bilateral, no edema Lungs: CTA bilateral, no rhonchi, no rales, no accessory muscle use Abdominal: soft, nontender to palpation, no guarding Ext: muscle strength 5 out of 5 in all 4 extremities grossly, no gross muscle atrophy Neuro: CN II-XI grossly intact, no gross focal neuro deficits Psych: Alert, oriented to person, place, and time A total of greather than 30 minutes of time were spent preparing this complex discharge summary. Patient was discharge on June 02, 2024 at 13:03. Oralia Simons MD PGY-1 IM Dictation was produced using [employer] dictation software. please excuse any g rammatical, word or spelling errors. I saw and evaluated the patient during the argueta and critical portions of this encounter, and discussed the case in detail with the resident author of this note, I agree with the Assessment and Plan, and my changes, if any, are highlighted in blue. Expected date of discharge: 06/02/24 Attending physician: Zander Aguilar Consults: 05/31/24 09:51 Consult Physician Routine Consulting Provider: Mara Dickson Consult Reason/Comments: positive blood cultures Do you want consulting provider notified?: Yes Primary care physician: Linnette Claros MD Patient Condition at Discharge: Fair Plan - Discharge Summary Discharge Rx Participant: No New Discharge Prescriptions: New predniSONE 50 mg PO DAILY 3 Days #3 tab cefuroxime axetiL [Ceftin] 500 mg PO BID 7 Days #14 tab Continue Fluticasone Propion/Salmeterol [Advair 100-50 Diskus] 2 puff INHALATION RT- BID Fluticasone Nasal [place] [Flonase Nasal [place]] 1 spray EA NOSTRIL BID Albuterol Nebulized [Ventolin Nebulized] 2.5 mg INHALATION RT-QID PRN PRN Reason: Shortness Of Breath Ibuprofen [Motrin] 800 mg PO DAILY PRN PRN Reason: Pain Albuterol Inhaler [Ventolin Hfa Inhaler] 2 puff INHALATION RT-Q6H PRN PRN Reason: Shortness Of Breath Atorvastatin [Lipitor] 20 mg PO DAILY Discontinued predniSONE 50 mg PO DAILY #5 tab No Action Amoxic-Pot Clav 875-125Mg [Augmentin 875-125] 1 tab PO Q12HR #20 tab Discharge Medication List Albuterol Nebulized [Ventolin Nebulized] 2.5 mg INHALATION RT-QID PRN 06/15/23 [History] Ibuprofen [Motrin] 800 mg PO DAILY PRN 11/30/23 [History] Amoxic-Pot Clav 875-125Mg [Augmentin 875-125] 1 tab PO Q12HR #20 tab 05/28/24 [Rx] Albuterol Inhaler [Ventolin Hfa Inhaler] 2 puff INHALATION RT-Q6H PRN 05/31/24 [History] Atorvastatin [Lipitor] 20 mg PO DAILY 05/31/24 [History] Fluticasone Nasal [place] [Flonase Nasal [place]] 1 spray EA NOSTRIL BID 05/31/24 [History] Fluticasone Propion/Salmeterol [Advair 100-50 Diskus] 2 puff INHALATION RT-BID 05/31/24 [History] cefuroxime axetiL [Ceftin] 500 mg PO BID 7 Days #14 tab 06/02/24 [Rx] predniSONE 50 mg PO DAILY 3 Days #3 tab 06/02/24 [Rx] Follow up Appointment(s)/Referral(s): Linnette Claros MD [Primary Care Provider] - 1-2 days (office not answering Please call to schedule appointment) Patient Instructions/Handouts: COPD (Chronic Obstructive Pulmonary Disease) (DC) Activity/Diet/Wound Care/Special Instructions: Please follow up with PCP. Discharge Disposition: HOME SELF-CARE
[2024-06-02 14:31] VITALS: BP 136/74; PULSE 92; RESP 16; TEMP 97.1
--- NOTE | 2024-06-02 15:15 | P.PN ---
Subjective Progress Note Date: 06/02/24 Principal diagnosis: Reason for follow-up is pneumonia and a positive blood culture Patient is a 68-year-old male with a past medical history significant for leukemia rheumatoid arthritis COPD asthma presenting to the hospital for evaluation of increasing shortness of breath and the patient also have a cough did have a positive blood culture on a visit to the ER on 05/27/2024 concerning for pneumonia prompting this consultation. On today's evaluation that is 06/02/2024,the patient remains to be afebrile, patient is on room air not requiring supplemental oxygen and breathing comfortably in no distress no vomiting diarrhea and the changes reported. Patient white count 7.6, creatinine 0.72 blood culture repeat and sputum culture currently pending Objective - Vital Signs Vital signs: Vital Signs Temp 97.1 F L 06/02/24 13:37 Pulse 92 06/02/24 13:37 Resp 16 06/02/24 13:37 BP 136/74 06/02/24 13:37 Pulse Ox 97 06/02/24 13:37 FiO2 Intake & Output 06/01/24 06/02/24 06/02/24 18:59 06:59 18:59 Intake Total 1500 Balance 1500 Intake: Oral 1500 Other: Voiding Method Toilet # Voids 5 2 - Exam GENERAL DESCRIPTION: An elderly male lying in bed in no distress RESPIRATORY SYSTEM: Unlabored breathing , coarse breath sounds at bases HEART: S1 S2 regular rate and rhythm , ABDOMEN: Soft , no tenderness EXTREMITIES: No edema feet - Labs CBC & Chem 7: 06/02/24 07:05 06/02/24 07:05 Labs: Abnormal Lab Results - Last 24 Hours (Table) 06/02/24 Range/Units 07:05 RBC 3.93 L (4.30-5.90) m/uL Hgb 11.3 L (13.0-17.5) gm/dL Hct 34.2 L (39.0-53.0) % Microbiology - Last 24 Hours (Table) 06/01/24 11:06 Gram Stain - Preliminary Sputum Sputum Culture - Preliminary 05/31/24 10:05 Blood Culture - Preliminary Blood Assessment and Plan (1) Positive blood cultures Status: Acute Code(s): R78.81 - BACTEREMIA SNOMED Code(s): 672147913 (2) Bronchopneumonia Status: Acute Code(s): J18.0 - BRONCHOPNEUMONIA, UNSPECIFIED ORGANISM SNOMED Code(s): 795798790 Plan: 1patient with a positive blood culture on 05/27/2024 with gram-positive bacilli more likely skin contamination blood culture have been repeated to document clearance. 2patient also complaining of cough bring up some yellow sputum with infiltrate seen on chest x-ray concerning for bronchopneumonia likely community-acquired. 3patient blood culture and sputum culture are currently pending 4patient did have some clinical improvement and will be treated with Rocephin and Zithromax while waiting for the culture to finalize and monitor clinical course closely. Dictation was produced using [employer] dictation software. please excuse any grammatical, word or spelling errors. Time with Patient: Less than 30
== END 2024-06-02 15:05 | disposition home or self-care (01) | DRG 190 ==
LOC: EC 09:28 → 4SSUR 12:22
PROVIDERS: ADMIT Student in an Organized Health Care Education/Training Program; ATTEND Student in an Organized Health Care Education/Training Program
DX: J44.1 Chronic obstructive pulmonary disease with (acute) exacerbation (principal); J18.0 Bronchopneumonia, unspecified organism; C85.9A Non-Hodgkin lymphoma, unspecified, in remission; J96.11 Chronic respiratory failure with hypoxia; R78.81 Bacteremia; J44.0 Chronic obstructive pulmonary disease with (acute) lower respiratory infection; M06.9 Rheumatoid arthritis, unspecified; D64.9 Anemia, unspecified; E78.5 Hyperlipidemia, unspecified; F17.210 Nicotine dependence, cigarettes, uncomplicated; Z79.51 Long term (current) use of inhaled steroids; Z79.899 Other long term (current) drug therapy; Z85.6 Personal history of leukemia; Z88.5 Allergy status to narcotic agent; Z95.5 Presence of coronary angioplasty implant and graft; Z86.19 Personal history of other infectious and parasitic diseases
CPT/HCPCS: 36415; 71046; 80048; 83735; 83880; 84145; 85025; 85652; 86140; 87040; 87070; 87205; 94640; 94760; 96361; 96365; 96366; 96372; 96375; 99285

== ENCOUNTER → 2024-12-14 | Outpatient (CLI) | payer MEDICARE, OTHER ==
--- NOTE | 2024-12-14 11:37 | XR ---
EXAMINATION TYPE: XR knee complete LT DATE OF EXAM: 12/14/2024 11:30 AM INDICATION: Patient age:Male; 69 years old; Reason for study: M25.562 L knee pain; PHH. pain COMPARISON: None. TECHNIQUE: The Left knee(s) was examined in Frontal, lateral and oblique projections. FINDINGS: No evidence of any acute osseous pathology, soft tissue swelling, or joint effusion is no yue. Increased density identified within the medial tibiofemoral joint space. No significant joint sp vasu narrowing or osteophyte formation. Vascular sclerosis. IMPRESSION: 1. No acute osseous pathology. 2. Medial tibiofemoral joint chondrocalcinosis. [facility], , 12/14/2024 11:35 AM
--- NOTE | 2024-12-14 11:41 | XR ---
EXAMINATION TYPE: XR Hip Bilateral and AP pelvis DATE OF EXAM: 12/14/2024 11:30 AM INDICATION: Patient age:Male; 69 years old; Reason for study: M25.559 CHRONIC HIP PAIN; PHH. pain COMPARISON: CT abdomen pelvis 04/22/2024 TECHNIQUE: Both hips were examined in the frontal and lateral projections and a AP pelvis. FINDINGS: No evidence of any acute osseous pathology, joint dislocation, or soft tissue swelling. Mil d marginal osteophytosis of both acetabula. No significant joint space narrowing. Both SI joints are intact. Multilevel degenerative changes of the visualized lower lumbar spine. Vascular sclerosis. IMPRESSION: 1. No acute osseous pathology. 2. Minimal osteoarthritic changes of both hips. [facility], , 12/14/2024 11:39 AM
== END | disposition home or self-care (01) ==
LOC: RADXRMAIN 10:48
DX: M11.262 Other chondrocalcinosis, left knee (principal); M16.0 Bilateral primary osteoarthritis of hip
CPT/HCPCS: 73521